=== PATIENT | female | born 1985 | race Hispanic/Latino ===

== ENCOUNTER 2023-06-23 14:07 | Emergency (ER) | payer OTHER, SELFPAY ==
[2023-06-23 14:18] VITALS: BP 138/89
[2023-06-23 14:32] LABS: % Basophils 0.3 % (0-2); % Immature Granulocytes 0.2 % (0-0.5); % Lymphocytes 28.4 % (20.5-51.1); % Monocytes 5.3 % (1.7-9.3); % Neutrophils 64.8 % (42.2-75.2); Absolute Eosinophils 0.1 10^3/uL (0-0.7); Absolute Lymphocytes 1.8 10^3/uL (1.2-3.4); Absolute Monocytes 0.3 10^3/uL (0.1-0.6); Absolute Neutrophils 4.1 10^3/uL (1.4-6.5); Hematocrit 37.2 % (37.0-47.0); Hemoglobin 12.5 g/dL (12.0-16.0); Mean Corp Hgb Conc. 33.6 g/dL (33.0-37.0); Mean Corpuscular Hgb 28.9 pg (27.0-31.0); Mean Corpuscular Volume 85.9 fL (81.0-99.0); Mean Platelet Volume 12.2 fL (7.4-10.4); Nucleated Red Blood Cells % 0 %; Platelet Count 213 10^3/uL (130-400); Red Blood Cell Count 4.33 10^6/uL (4.20-5.40); Red Cell Dist. Width 13.7 % (11.5-14.5); White Blood Cell Count 6.3 10^3/uL (4.8-10.8)
[2023-06-23 14:54] LABS: Troponin I < 0.012 ng/ml
[2023-06-23 15:11] LABS: ALT (SGPT) 17 U/L (0-35); AST (SGOT) 24 U/L (14-36); Albumin 4.7 g/dl (3.5-5.0); Alkaline Phosphatase 55 U/L (38-126); Blood Urea Nitrogen 14 mg/dl (7-17); Calcium 9.9 mg/dl (8.4-10.2); Carbon Dioxide 24 mmol/L (22-30); Chloride 104 mmol/L (98-107); Glucose 87 mg/dl (70-99); Potassium 4.3 mmol/L (3.5-5.1); Sodium 138 mmol/L (135-145); Total Bilirubin 0.7 mg/dl (0.2-1.3); Total Protein 7.6 g/dl (6.3-8.2); eGFR > 60.00
[2023-06-23 15:24] LABS: TSH Reflex To Free T4 1.86 uIU/ml (0.47-4.68)
--- NOTE | 2023-06-23 16:05 | ED.GENMED ---
History of Present Illness
General
Chief Complaint: Chest Pain
Source: patient and spouse
Exam Limitations: none
Time Seen by Provider: 06/23/23 16:03
Nursing documentation reviewed up to this point in time: agreed with
Travel History
Have you had any contact with someone who has COVID-19?: No
Do you have any symptoms of coronavirus? Fever > 100 degrees, chills, cough, shortness of breath, sore throat, loss of taste or smell, muscle aches, or headache?: No
History of Present Illness
History of Present Illness:
37-year-old female presents emergency department complaining of chest tightness yesterday, she also notes feeling foggy for the past several months. She recently adjusted her Synthroid from 50 mcg to 75, but then decreased it to 50 today after
feeling her heart racing. Her primary care adjusted it.
Past History
Past History
ED Past Medical History: Hypothyroidism
ED Past Surgical History: Orthopedic
Social History
Tobacco: Non-smoker
Alcohol: None
Drug: None
Review of Systems
Review of Systems
Allergies reviewed?: Yes
All Other Systems: Not applicable
Constitutional: Reports no symptoms
EENT: Reports no symptoms
Respiratory: Reports no symptoms
Cardiac: Reports chest pain and palpitations
ABD/GI: Reports no symptoms
: Reports no symptoms
Musculoskeletal: Reports no symptoms
Skin: Reports no symptoms
Neurological: Reports headache
Endocrine: Reports no symptoms
Hematologic/Lymphatic: Reports no symptoms
Psychiatric: Reports no symptoms
Phy Exam
Physical Exam
Physical Exam:
Physical Exam
General: no apparent distress, not acutely ill
Neck: supple. no meningeal signs. normal posterior pharynx
Heart: s1/s2 regular rate and rhythm, no murmur. equal radial
pulses.
HEENT: Pupils equal round reactive to light, EOMI
Lungs: no acute respiratory distress. clear bilaterally
Abdomen: normal bowel sounds. not tender. no CVAT
Neuro: alert and oriented. no focal neurological deficits cranial nerves II through XII intact
Skin: no rash
Psychiatric: well kept. interactive and cooperative
Extremities: no edema. no calf tenderness. negative homans. good distal pulses
Scores
Heart Score for Chest Pain Patients
STEMI patient?: No
History: Slightly or Non-Suspicious
ECG: Normal
Age: </= 45 years
Risk Factors: No Risk Factors
Troponin: </= Normal Limit
Heart Score for Chest Pain Patients: 0
Heart Score Risk: 2.5% MACE over next 6 weeks
Course
Orders/Labs/Results
Orders:
Orders
06/23/23 14:10
Electrocardiogram (*1) Urgent
Reason for Study: Chest Pain
EKG- Treatment ONCE
06/23/23 14:24
Complete Blood Count/With Diff Urgent
Comprehensive Metabolic Panel Urgent
HCG, Serum Qualitative Screen Urgent
Comment: ADD
TSH Reflex To Free T4 Urgent
Troponin I Urgent
06/23/23 16:24
CT Head W/o Iv Contrast Urgent
Comment:
Reason For Exam: headache, feels foggy
06/23/23 16:51
Add On- LAB Urgent
Tests Added?: Serum HCG qualitative
Abnormal Lab Results
06/23/23
14:24
MPV 12.2 H fL
(7.4-10.4)
06/23/23 14:24
06/23/23 14:24
Vital Signs
Initial and Last Documented VS:
Initial Vital Signs
Temp Pulse Resp BP Pulse Ox
98.3 F 70 16 138/89 100
06/23/23 14:18 06/23/23 14:18 06/23/23 14:18 06/23/23 14:18 06/23/23 14:18
Last Documented Vital Signs
Temp Pulse Resp BP Pulse Ox
98.3 F 76 18 128/80 100
06/23/23 14:18 06/23/23 18:20 06/23/23 18:20 06/23/23 18:20 06/23/23 18:20
MDM/Problems Addressed
Differential Diagnosis Includes:
Thyroiditis, dysrhythmia
MDM/Problems Addressed:
37-year-old female with palpitations, chest tightness, brain fog and dizziness. She has felt the brain fog and dizziness for the past several months, possibly related to thyroiditis, as her TSH was 6 last week. No signs of dysrhythmia. Stable for
discharge and follow-up with endocrinology and primary care.
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
*Radiology
Radiology exam reviewed: radiology read reviewed (CT head no acute findings)
*Pulse Oximetry
Patient hypoxic: no
*EKG
Interpreted by ED Provider?: Yes
EKG Intrepretation Date: 06/23/23
EKG Intrepretation Time: 14:13
Interpretation: abnormal
Comparison EKG: no comparison EKG present
Heart Rate: 72
Rate: normal
Rhythm: sinus and sinus arrhythmia
Sharon: normal axis
Interval: normal interval
QRS Pattern: normal QRS
Ischemia: non-specific ST changes
*Erp Business Analyst Interpretation
Rate: Erp Business Analyst- N/A
*Critical Care Note
Total Time (30-74mins, 75-104mins- exclusive of procedures): Not Applicable
Data Reviewed
Review of Other/Old Records Reveals: Labs (pt lab from 06/19/23, tsh 6)
Source: patient
Patient Management
Social determinants of health affecting care: Living situation and Strong social support
Escalation/DeEscalation of care consider admission/obs:
admit not indicated
ED Attending Note
-
Portions of this chart may have been created with voice recognition software.� Occasional wrong word or��sound alike� substitutions may have occurred due to the inherent limitations of voice recognition software.
Discharge Plan
Departure
Patient Disposition: Home (Routine Discharge)
Date of Disposition: 06/23/23
Time of Disposition: 18:23
Patient with high blood pressure during this ER visit?: Yes
Condition: Good
Discharge Problem:
Palpitations
Instructions: Palpitations, BLOOD PRESSURE
Prescriptions:
No Action
Synthroid
50 mg PO DAILY
multivitamin Tablet
1 tab PO DAILY
cetirizine [Zyrtec] 10 mg Tablet
10 mg PO DAILY
ondansetron 4 mg tablet,disintegrating
4 mg PO Q8H PRN (Reason: nausea and vomiting) 5 Days Qty: 14 0RF
Referrals:
Song Moran PA [Family Provider] - Call in 1-3 days for appt
Activity Restrictions/Additional Instructions:
Return for any concerns. Follow up with your manager shipping in 1-2 weeks
Interventions
Interventions:
*Risk Screen - Suicide Last Done: 06/23/23 14:18
*General Assessment Last Done: 06/23/23 14:18
*Neglect/Abuse Screening Last Done: 06/23/23 14:18
ED- Cardiac Assessment Last Done: 06/23/23 16:03
Discharge Date and Time
Print Language: YI
[2023-06-23 17:46] LABS: HCG, Serum Qualitative Screen Negative
[2023-06-23 18:20] VITALS: BP 128/80
== END 2023-06-23 19:29 | disposition home or self-care (01) ==
LOC: EMR 14:07
PROVIDERS: Emergency Medicine; EMERGENCY PHYSICIAN Emergency Medicine; FAMILY PHYSICIAN Nurse Practitioner Family
DX: R07.89 Other chest pain (principal); E06.3 Autoimmune thyroiditis
CPT/HCPCS: 99284; 70450; 80053; 84443; 84484; 84703; 85025; 93005

== ENCOUNTER 2023-08-02 20:37 | Inpatient (IN) | payer OTHER, SELFPAY ==
[2023-08-02] VITALS (12 sets, daily range): BP systolic 108–136; BP diastolic 80–97; PULSE 68–86; BMI 21.0; BMI 20.5
--- NOTE | 2023-08-02 16:03 | ED.GENMED ---
History of Present Illness
General
Chief Complaint: Vascular Symptoms
Source: patient and spouse
Exam Limitations: none
Time Seen by Provider: 08/02/23 15:04
Nursing documentation reviewed up to this point in time: agreed with
Travel History
Have you had any contact with someone who has COVID-19?: No
Do you have any symptoms of coronavirus? Fever > 100 degrees, chills, cough, shortness of breath, sore throat, loss of taste or smell, muscle aches, or headache?: No
History of Present Illness
History of Present Illness:
37-year-old female with Deejay history of migraines Armani's thyroiditis presenting to the emergency department today with concerns of a positional discomfort to the right arm as well as numbness weakness to the right arm as well as intermittent
headache and dizziness that seems to be positional. She claims that she went to an urgent care earlier today and they were concerned that they heard potentially a bruit to the right side of the neck as well. She was sent in for imaging today.
Denies ongoing symptoms when sitting upright.
Past History
Past History
ED Past Medical History: Hypothyroidism
ED Past Surgical History: Orthopedic
Social History
Tobacco: Non-smoker
Alcohol: None
Drug: None
Review of Systems
Review of Systems
Allergies reviewed?: Yes
All Other Systems: ROS reviewed and negative except as documented in HPI and ROS
Phy Exam
Physical Exam
Physical Exam:
GENERAL: Alert , in no apparent distress
EYE: pupils equal and reactive
NECK: Supple, no significant adenopathy.
ENT: o/p clr, mmm.
CARDIAC: Regular rate and rhythm .
LUNGS: Clear breath sounds bilaterally, no acute respiratory distress, no wheezes/rales/rhonchi
ABDOMEN: Soft, without focal tenderness, no r/g, no cvat
NEUROLOGICAL: Alert and oriented, no focal neuro deficits
SKIN: Warm and dry, skin intact.
MUSCULOSKELETAL: No edema, well perfused.
PSYCH: Normal and appropriate interaction.
Course
Orders/Labs/Results
Orders:
Orders
08/02/23 15:38
CT Head & Neck Angio W/wo IV Urgent
Comment:
Reason For Exam: right arm weakness, dizzy, right neck pain bruit h
08/02/23 15:39
EKG [Electrocardiogram (*1)] Urgent
Reason for Study: Fatigue / Weakness
EKG- Treatment ONCE
Test Result ONCE
08/02/23 15:53
Beta Hcg Serum Qualitative Screen [HCG, Serum Qualitative Screen] Urgent
CBC/With Diff [Complete Blood Count/With Diff] Urgent
CMP [Comprehensive Metabolic Panel] Urgent
TSH Reflex To Free T4 Urgent
Comment: ADD-ON
08/02/23 16:05
Add On- LAB Urgent
Tests Added?: TSH free T4
08/02/23 16:35
Urinalysis Reflex To Culture Urgent
Date Specimen was Collected: 08/02/23
Time Specimen was Collected: 16:34
08/02/23 18:57
Clopidogrel Bisulfate [Plavix] 300 mg PO NOW STA
Abnormal Lab Results
08/02/23
15:53
MPV 13.0 H fL
(7.4-10.4)
08/02/23 15:53
08/02/23 15:53
Vital Signs
Initial and Last Documented VS:
Initial Vital Signs
Temp Pulse Resp BP Pulse Ox
98.5 F 80 16 135/86 97
08/02/23 14:08 08/02/23 14:08 08/02/23 14:08 08/02/23 14:08 08/02/23 14:08
Last Documented Vital Signs
Temp Pulse Resp BP Pulse Ox
98.5 F 83 17 136/97 99
08/02/23 14:08 08/02/23 19:00 08/02/23 19:00 08/02/23 19:00 08/02/23 19:00
MDM/Problems Addressed
MDM/Problems Addressed:
37-year-old female presenting to the emergency department today with concerns of discomfort in the right arm over the past few months but worsening dizziness and lightheadedness with certain positioning seems to be coming from the right side. Was
seen at urgent care was sent in for imaging. CT angiogram showing a right-sided internal carotid dissection. Case was immediately discussed with vascular surgery recommending Plavix and admission. Case discussed with hospitalist admitted on
Plavix. No ongoing symptoms here.
*Critical Care Note
Total Time (30-74mins, 75-104mins- exclusive of procedures): Not Applicable
ED Attending Note
-
Portions of this chart may have been created with voice recognition software.� Occasional wrong word or��sound alike� substitutions may have occurred due to the inherent limitations of voice recognition software.
Discharge Plan
Departure
Patient Disposition: Admit
Date of Disposition: 08/02/23
Time of Disposition: 19:10
Admit to: Telemetry
Admit to doctor: Jon
Presentation/result/management discussed w/ accepting MD/DO: Hospitalist
Patient with high blood pressure during this ER visit?: No
Condition: Good
Covid-19: Not Applicable
Discharge Problem:
Internal carotid artery dissection
Prescriptions:
No Action
levothyroxine [Synthroid] 50 mcg Tablet
50 mcg PO SUMOWETH Qty: 0
multivitamin Tablet
1 tab PO DAILY
cetirizine [Zyrtec] 10 mg Tablet
10 mg PO DAILY
sumatriptan succinate [Imitrex] 25 mg Tablet
0 mg PO .COMPLEX
Rx Instructions:
take 1 tab at onset of headache; if no relief may repeat 1 tab after at least 2 hrs; max = 4 tabs/24 hr
levothyroxine [Synthroid] 75 mcg Tablet
75 mcg PO TUFR
Patient Comments:
new dose, slowly increased to 75mcg daily. and stop 50mcg when dizzness stops
cholecalciferol (vitamin D3) [Vitamin D3] 25 mcg (1,000 unit) Tablet
25 mcg PO DAILY
Referrals:
Delphine Harry CRNP [Family Provider] -
Interventions
Interventions:
*Risk Screen - Suicide Last Done: 08/02/23 15:19
*General Assessment Last Done: 08/02/23 19:03
*Neglect/Abuse Screening Last Done: 08/02/23 15:19
ED- Fall Risk Assessment Last Done: 08/02/23 15:20
*ED COVID-19 Vaccine History Last Done: 08/02/23 19:03
ED- Cardiac Assessment Last Done: 08/02/23 15:20
ED-Musculoskeletal Assessment Last Done: 08/02/23 15:19
ED- Pulmonary Assessment Last Done: 08/02/23 15:19
ED-Peripheral Vascular Assessment Last Done: 08/02/23 15:19
ED-Skin Assessment Last Done: 08/02/23 15:19
Discharge Date and Time
Print Language: ICELANDIC
[2023-08-02 16:29] LABS: HCG, Serum Qualitative Screen Negative
[2023-08-02 16:31] LABS: % Basophils 0.5 % (0-2); % Eosinophils 0.8 % (0-6); % Immature Granulocytes 0.2 % (0-0.5); % Lymphocytes 31.7 % (20.5-51.1); % Monocytes 6.8 % (1.7-9.3); Absolute Eosinophils 0.1 10^3/uL (0-0.7); Absolute Lymphocytes 1.9 10^3/uL (1.2-3.4); Absolute Monocytes 0.4 10^3/uL (0.1-0.6); Absolute Neutrophils 3.6 10^3/uL (1.4-6.5); Hematocrit 37.5 % (37.0-47.0); Hemoglobin 12.8 g/dL (12.0-16.0); Mean Corp Hgb Conc. 34.1 g/dL (33.0-37.0); Mean Corpuscular Hgb 28.9 pg (27.0-31.0); Mean Corpuscular Volume 84.7 fL (81.0-99.0); Nucleated Red Blood Cells % 0 %; Platelet Count 208 10^3/uL (130-400); Red Blood Cell Count 4.43 10^6/uL (4.20-5.40); Red Cell Dist. Width 13.2 % (11.5-14.5); White Blood Cell Count 6.1 10^3/uL (4.8-10.8)
[2023-08-02 16:32] LABS: ALT (SGPT) 19 U/L (0-35); AST (SGOT) 23 U/L (14-36); Albumin 4.4 g/dl (3.5-5.0); Alkaline Phosphatase 61 U/L (38-126); Blood Urea Nitrogen 14 mg/dl (7-17); Calcium 9.7 mg/dl (8.4-10.2); Carbon Dioxide 28 mmol/L (22-30); Chloride 106 mmol/L (98-107); Estimated Creatinine Clearance 116 ml/min; Glucose 89 mg/dl (70-99); Potassium 4.4 mmol/L (3.5-5.1); Sodium 142 mmol/L (135-145); Total Bilirubin 0.5 mg/dl (0.2-1.3); Total Protein 7.4 g/dl (6.3-8.2); eGFR > 60.00
[2023-08-02 17:17] LABS: Urine Albumin Negative (Neg - Trace); Urine Bilirubin Negative (Negative); Urine Character Clear (Clear); Urine Color Yellow; Urine Glucose Negative (Negative); Urine Ketone Negative (Negative); Urine Leukocyte Negative (Negative); Urine Nitrite Negative (Negative); Urine Occult Blood Negative (Negative); Urine Urobilinogen Negative (Neg - 1+)
[2023-08-02 17:36] LABS: TSH Reflex To Free T4 1.72 uIU/ml (0.47-4.68)
[2023-08-02] MEDS: PLAVIX 300 MG PO (19:06)
--- NOTE | 2023-08-02 20:20 | HPS.HSE ---
Family Physician
-
Family Physician: JHOAN Wilkinson
Chief Complaint
-
Dizziness
History of Present Illness
Patient is a 37y F with PMH significant for Armani's thyroiditis / hypothyroidism who presents to ED complaining of dizziness. Patient states that she has had positional dizziness x about 1 month or so. Her symptoms seem to occur more often
when sitting upright or standing. Symptoms are exacerbated if she tries to 'sit up straight' and seem improved with hunching or slouching. Patient has tried to increase her fluid intake but has noted no significant change in her symptoms. She has
not had an episodes of syncope or LOC. She noted today that she elicited dizzy sensations simply by moving her arms (either one). This was new and patient presented to an Urgent Care for evaluation. Bruit was appreciated on the R and patient was
sent to the ED for further evaluation.
Patient states that she will develop numbness and tingling along her R side - including the arm and leg - if she remains upright after the dizziness has started. These symptoms too can be alleviated by changes in position.
She denies any focal weakness. No vision changes, headache or speech deficits. Patient denies any neck pain.
At the time of my examination, patient is lying supine in the ED and has no symptoms.
Medical History
Past Medical History
Past Medical History: Reports Other
Additional Past Medical History:
Armani's Disease
Hypothyroidism
Past Surgical History: Reports Other
Additional Past Surgical History:
Bilateral Knee Arthroscopies
Diastasis Recti and Hernia Repairs
Bilateral Hip Labrum Repairs
Social History
Tobacco: Non-smoker
Alcohol: Occasional
Drug: None
Family History
Family History: Other (Sister: Thoracic Outlet Syndrome Father: HTN Brother: HTN)
Allergies / Home Medications
Allergies reflects when Allergies were last updated in [facility].
Home Medications with original date entered in [facility]
Allergy/Medication List:
Allergies
Allergy/AdvReac Type Severity Reaction Status Date / Time
No Known Allergies Allergy Verified 04/29/21 05:58
Home Medications
levothyroxine 50 mcg tablet (Synthroid) 50 mcg PO SUMOWETH Thyroid ##0 04/29/21
cetirizine 10 mg tablet (Zyrtec) 10 mg PO DAILY 09/16/22
multivitamin 1 tab PO DAILY 09/16/22
cholecalciferol (vitamin D3) 25 mcg (1,000 unit) tablet (Vitamin D3) 25 mcg PO DAILY 08/02/23
levothyroxine 75 mcg tablet (Synthroid) 75 mcg PO TUFR 08/02/23
sumatriptan succinate 25 mg tablet (Imitrex) 0 mg PO .COMPLEX 08/02/23
Review of Systems
-
History Source: Patient
A 12 point ROS was completed and negative except as noted: Yes
Constitutional: Denies Fever or Chills
Respiratory: Denies Cough or Trouble Breathing
Cardiac: Denies Chest Pain or Palpitations
Abdomen/GI: Denies Abdominal Pain, Nausea, Vomiting or Diarrhea
: Denies Dysuria or Frequency
Musculoskeletal: Denies Joint Pain or Edema
Neurological: Reports Dizzy and Numbness; Denies Headache or Weakness
Psych: Denies Depression or Anxiety
Physical Exam
Vital Signs
Vital Signs
Temp Pulse Resp BP Pulse Ox
98.5 F 83 17 136/97 99
08/02/23 14:08 08/02/23 19:00 08/02/23 19:00 08/02/23 19:00 08/02/23 19:00
Physical Exam
General: Other (37y F in no acute distress.)
HEENT: Moist mucous membranes and PERRLA
Respiratory: Clear; No Wheezes, Rales or Rhonchi
Cardiac: S1/S2 and Regular Rhythm; No Murmur
GI: Soft, Non Tender, Non Distended and Normal Bowel Sounds
Musculoskeletal: No Clubbing, No Cyanosis and No Edema
Neuro: AO x 3 and Nonfocal/grossly intact
Laboratory Results
-
08/02/23 15:53
08/02/23 15:53
Laboratory Results
Total Bilirubin 0.5 mg/dl (0.2-1.3) 08/02/23 15:53
AST 23 U/L (14-36) 08/02/23 15:53
ALT 19 U/L (0-35) 08/02/23 15:53
Alkaline Phosphatase 61 U/L (38-126) 08/02/23 15:53
Impression/Plan
-
A/P: Patient is a 37y F with PMH significant for thyroid disease who presents to ED complaining of dizziness.
Right Internal Carotid Artery Dissection
Dizziness likely secondary to the above
- Admit for further evaluation and treatment.
- Plavix started in the ED and will continue daily.
- Vascular Surgery evaluation for additional recommendations.
- Follow for any neurologic changes.
- Maintain BP control.
Hypothyroidism
- Stable. TFTs normal.
- Continue current T4 replacement.
DVT Prophylaxis: SCDs
Code Status: Full
--- NOTE | 2023-08-03 03:21 | PTCARENOTE ---
Patient is a 37y F with PMH significant for Armani's thyroiditis / hypothyroidism who presents to ED complaining of dizziness, positional dizziness x about 1 month or so, symptoms seem to occur more often when sitting upright or standing,
symptoms too can be alleviated by changes in position.
Admitted from ED with DX of Carotid Dissection. Orthostatic V/S were negative. Pt resting quietly, bed in low position, call light & phone in reach of pt. Pt instructed to call when she gets up, standby assist due to dizziness.
[2023-08-03 03:30] VITALS: BP 138/79
[2023-08-03] MEDS: SYNTHROID 50 MCG PO (05:12)
[2023-08-03 05:19] LABS: Hematocrit 33.7 % (37.0-47.0); Hemoglobin 11.7 g/dL (12.0-16.0); Mean Corp Hgb Conc. 34.7 g/dL (33.0-37.0); Mean Corpuscular Hgb 28.5 pg (27.0-31.0); Mean Platelet Volume 12.4 fL (7.4-10.4); Platelet Count 196 10^3/uL (130-400); Red Blood Cell Count 4.11 10^6/uL (4.20-5.40); Red Cell Dist. Width 13.3 % (11.5-14.5)
[2023-08-03 05:22] VITALS: BMI 20.5
[2023-08-03 05:44] LABS: Blood Urea Nitrogen 17 mg/dl (7-17); Carbon Dioxide 24 mmol/L (22-30); Chloride 105 mmol/L (98-107); Estimated Creatinine Clearance 113 ml/min; Glucose 81 mg/dl (70-99); HDL Cholesterol 60 mg/dl; LDL Cholesterol, Calculated 59 mg/dl; Potassium 3.8 mmol/L (3.5-5.1); Sodium 140 mmol/L (135-145); Total Cholesterol 128 mg/dl (50-199); Triglyceride 47 mg/dl (10-149); Very Low Density Lipoprotein 9 mg/dl (0-30); eGFR > 60.00
[2023-08-03 07:35] VITALS: BP 101/74; BP 123/78; BP 136/88; PULSE 104; PULSE 83; PULSE 93
[2023-08-03] MEDS: ZYRTEC 10 MG PO (08:00)
[2023-08-03] MEDS: PLAVIX 75 MG PO (08:00)
--- NOTE | 2023-08-03 09:19 | CON.VAS ---
Addendum entered and electronically signed by Braeden Honeycutt III, MD 08/03/23 14:58:
This patient was seen and examined with Carley Solomon PA-C. I agree with the history and physical exam as well as the assessment and plan. I have the following additions:
37-year-old healthy female
No significant past medical history other than hypothyroid
Progressive dizziness over the past several months
Cross-sectional imaging obtained yesterday shows focal right internal carotid artery dissection with distal flow present
Specifically denies slurred speech, facial droop, monocular vision loss, asymmetric upper/lower extremity weakness or numbness. Denies recent stroke or TIA.
She reports that with movement of her RIGHT arm this makes her dizziness worse. Denies any left peripheral symptoms.
Non-smoker
No recent trauma or falls
No recent whiplash injury
No car accidents
No chiropractic manipulation
No personal or family history of fibromuscular dysplasia
No personal history of hypertension
No personal or family history of connective tissue disorders
I do not suspect that her chronic progressive dizziness is related to the focal carotid dissection on the right. I do not see other characteristic radiographic evidence for fibromuscular dysplasia in the carotid arteries bilaterally.
Continue antiplatelet therapy
Neurology involvement
No surgical intervention planned
Obtain MRI of the brain
Obtain baseline carotid duplex while inpatient
I will see her as an outpatient and follow-up for carotid dissection imaging surveillance.
Call with questions or concerns
Signed:
Braeden Honeycutt III, MD
[facility]
[phone] (cell)
Original Note:
Consultation
Consultation Request
Date/Time Consultation Requested: 08/02/23 21:20
Date/Time Consultation Performed: 08/03/23 8:00
Requesting Provider: Anderson Gutierrez DO
Performing Provider: Carley Solomon PA-C; Braeden Honeycutt III, MD
Reason for Consultation: Right carotid dissection
Medical History
-
Chief Complaint: Dizziness
History of Present Illness:
37 year old female hx hypothyroidism presented to the ED with dizziness. She began developing dizziness about a few months ago. Yesterday she noticed worsening dizziness which was exacerbated with movement of her upper extremities, prompting her to
present to urgent care from where she was then referred to the ED. She notes associated right upper and lower extremity paresthesias and numbness which happens concurrently with the episodes of dizziness. No left sided paresthesias, weakness or
numbness. No amaurosis or speech changes. She notes almost complete resolution of symptoms at this time. She has never experienced these symptoms prior to one month ago. She denies headaches, neck pain, or visual changes. No recent neck trauma or
whiplash. She is a nonsmoker. CTA was performed which revealed acute non-occlusive dissection in the proximal-mid R ICA. She has been started on plavix this admission.
Past Medical History
Past Medical History: Hypothyroidism (Armani's disease)
Past Surgical History: Orthopedic (bilateral knee arthroscopy, bilateral hip labrum repair ) and Other (hernia repair )
Social History
Tobacco: Non-Smoker
Alcohol: Occasional
Drug: None
Family History
Family History: Hypertension (brother, father) and Other (sister- venous thoracic outlet syndrome )
Allergies / Home Medications
Allergy/AdvReac Type Severity Reaction Status Date / Time
No Known Allergies Allergy Verified 04/29/21 05:58
�Medication �Instructions �Recorded �Confirmed �Type
levothyroxine 50 mcg tablet 50 mcg PO SUMOWETH Thyroid ##0 04/29/21 08/02/23 History
(Synthroid)
cetirizine 10 mg tablet (Zyrtec) 10 mg PO DAILY Allergies 09/16/22 08/02/23 History
multivitamin 1 tab PO DAILY Supplement 09/16/22 08/02/23 History
cholecalciferol (vitamin D3) 25 25 mcg PO DAILY Supplement 08/02/23 08/02/23 History
mcg (1,000 unit) tablet (Vitamin
D3)
levothyroxine 75 mcg tablet 75 mcg PO TUFR Thyroid 08/02/23 08/02/23 History
(Synthroid)
sumatriptan succinate 25 mg tablet 0 mg PO .COMPLEX Migraine headache 08/02/23 08/02/23 History
(Imitrex)
Review of Systems
-
History Source: Patient
All other systems: Negative unless noted
Abdomen/GI: Reports Nausea
Neurological: Reports Dizzy
Physical Exam
Vital Signs
Temp Pulse Resp BP Pulse Ox
98.1 F 75 16 101/74 98
08/03/23 07:35 08/03/23 07:35 08/03/23 07:35 08/03/23 07:35 08/03/23 07:35
Lab Results
08/03/23 04:37
08/03/23 04:37
Physical Exam
General: Well Developed, Well Nourished and No Apparent Distress
HEENT: Normocephalic and Atraumatic
Respiratory: Non Labored Respirations
Cardiac: Regular Rhythm
Skin: Warm and Dry
Neuro: Awake, Alert, Oriented, Nonfocal/Grossly Intact and Other (upper and lower extremity strength equal bilaterally)
Psych: Calm
Assessment / Plan
-
37 year old female hx hypothyroidism who presented with dizziness, found to have acute R ICA dissection
- Presenting symptoms unlikely due to carotid dissection, continue to monitor symptoms
- Recommend neurology eval
- Continue plavix daily
- Will check carotid duplex
- No acute vascular surgical intervention needed at this time
Data Reviewed
-
CT Scan: Image Personally Visualized and interpreted, Report Reviewed by me, Discussed with Physician and Discussed with Patient
Labs: Labs Reviewed by me and Discussed with Physician
--- NOTE | 2023-08-03 09:58 | W.PN.HOSP.TC ---
Today's Communication/Plan
-
see A/P
Assessment / Plan
Assessment / Plan
37y F with PMH significant for Armani's thyroiditis / hypothyroidism who presented to ED complaining of dizziness. Patient states that she has had positional dizziness x about 1 month or so. Her symptoms seem to occur more often when sitting
upright or standing. Symptoms are exacerbated if she tries to 'sit up straight' and seem improved with hunching or slouching. Patient has tried to increase her fluid intake but has noted no significant change in her symptoms. She has not had an
episodes of syncope or LOC. She noted on DOA that she elicited dizzy sensations simply by moving her arms (either one). This was new and patient presented to an Urgent Care for evaluation. Bruit was appreciated on the R and patient was sent to the
ED for further evaluation.
Patient stated that she developed numbness and tingling along her R side - including the arm and leg - if she remains upright after the dizziness has started. These symptoms too can be alleviated by changes in position.
She denies any focal weakness. No vision changes, headache or speech deficits. Patient denies any neck pain.
A/P:
# Dizziness likely secondary to Right Internal Carotid Artery Dissection
Plavix started in the ED and will continue daily.
Vascular Surgery evaluation for additional recommendations.
Noted carotid US ordered by vascular team
Follow for any neurologic changes. Pt complains of intermittent R arm numbness and remains dizzy with change in head position.
Cont BP control with hydralazine PRN
# Hypothyroidism - Stable.
TFTs normal.
Continue current T4 replacement.
DVT Prophylaxis: SCDs
Code Status: Full
DW RN
DW at bedside
carotid dissection is a life threatening condition
Anticipated Discharge: > 48 hours
Subjective/Interval History
-
Date of Service: August 03, 2023
Objective Data
-
Labs:
Laboratory Results
08/03/23
04:37
WBC 7.0
Hgb 11.7 L
Hct 33.7 L
Plt Count 196
Sodium 140
Potassium 3.8
Chloride 105
Carbon Dioxide 24
BUN 17
Creatinine 0.6
Glucose 81
Calcium 9.0
Vital Signs:
Vital Signs
Temp Pulse Resp BP Pulse Ox
36.7 C 75 16 101/74 98
08/03/23 07:35 08/03/23 07:35 08/03/23 07:35 08/03/23 07:35 08/03/23 07:35
I&O
08/02/23 08/03/23 08/04/23
06:59 06:59 06:59
Intake Total 480 / 480
Output Total 400 / 400
Balance 80 / 80
Review of Systems
-
All other systems: Reviewed and negative
Physical Exam
-
General: Well Developed, Well Nourished, No Apparent Distress, Comfortable and Conversant; Negative Respiratory Distress
HEENT: Normocephalic, Atraumatic, Nose Appears Normal and Ears Appear Normal; Negative Oxygen
Respiratory: Clear to Auscultation and Non Labored Respirations; Negative Accessory Resp Muscle Use
Cardiac: Regular Rhythm and S1/S2
GI: Soft, Nontender, Nondistended and Normal Bowel Sounds
Skin: Warm and Dry
Neuro: Awake, Alert, Oriented, AO x 3 and Nonfocal/Grossly Intact
Psych: Calm and Intact Judgement/Insight
Data Reviewed
-
CT Scan: Report Reviewed by me
Labs: Labs Reviewed by me
[2023-08-03 11:33] VITALS: BP 113/75
--- NOTE | 2023-08-03 12:57 | CON.NEURO4 ---
Addendum entered and electronically signed by Connor Reddy MD 08/03/23 15:02:
Studies reviewed.
I have personally examined the patient. I reviewed and agree with the WOUND TREATMENT RN's Note.
My addenda:
Awake, alert, interactive. No acute distress.
Speech intact.
Follows 2-step requests w/o difficulty. No tremor.
Extra-ocular movements grossly intact.
Facial movements full and symmetric. Hearing intact to normal conversational volume.
Normal UE movements bilaterally.
Neck: full ROM.
Chest: no dyspnea
Heart: no JVD
Ext: (-) Clubbing, (-) Cyanosis, (-) Edema
IMPRESSIONS/RECOMMENDATIONS:
Abrupt onset of dizziness with discovery of right internal carotid artery dissection
With additional symptomatology of brain fog, episodic headache
Check MRI of brain to ensure no intracranial structural abnormality producing symptomatology although not likely despite the patient's carotid artery dissection
Continue clopidogrel
Reevaluate the patient's carotid dissection at 6 months to determine if the patient will require continued antiplatelet therapy (January 2024)
Check blood work for potential metabolic etiology
Rehabilitation evaluations
D/W patient / family
All questions answered.
Will continue to follow pending result.
Original Note:
Documented by User: Neda Medina NP 08/03/23 14:54
Consultation - Neurology 4
-
CONSULTING PHYSICIAN: Connor Reddy MD
REFERRING PHYSICIAN: Hospitalists/Dr. Deluca
DICTATED BY: JHOAN Madison
DATE/TIME OF REQUEST: 08/03/23
DATE/TIME OF CONSULTATION: 08/03/23
Reason for Consultation: Dizziness
History of Present Illness:
This is a 37-year-old left-handed female who has presented to the hospital on 08/02/23 with report of dizziness. Patient reports a history of progressive dizziness starting around March 2023. She reports noticing a sudden onset of dizziness while
driving with her right arm resting on the center console, lowering her arm resolved the dizziness. This kept happening intermittently when she raised her right arm up only. She also notes brain fog/forgetfulness starting around the same time. She
was experiencing heart palpitations with the dizziness initially and attributed it to her thyroid. Her administrative tech had her titrate her Synthroid dose more slowly, and the palpitations resolved and her brain fog improved slightly, but the
dizziness kept occurring. Over the past month, her dizziness has worsened/become more frequent, and turning her head too fast also started exacerbating her dizziness. In the past week she noticed that her right hand fingertips and right foot were
intermittently tingling during the dizzy episodes. She also reports having tunnel vision once in the past week and a posterior right neck straining sensation during the dizzy episodes. She has a pressure sensation under her right shoulder blade and
feels that if she hunches over/has poor posture, her symptoms improve. She reports having a history of severe migraines not associated with aura requiring her to lay down in a dark room. She hasn't had a migraine in a few months but she does endorse
having a right-sided headache about 3 days per week. She typically takes Advil for her headaches with relief. She also takes Imitrex PRN migraine but reports using this only a few times per year. She has never been on any other migraine medications.
Currently she rates her headache a 2/10. She denies any nausea or vomiting but reports mild photo/phonophobia with her headache. She denies any vision changes, speech/swallow difficulty, weakness, chest pain, palpitations, and shortness of breath.
CTA head/neck was obtained on arrival in the ER and demonstrates an acute nonocclusive dissection in the proximal-mid right internal carotid artery. She was loaded with Plavix in the ER. She denies any history of head/neck trauma and she does not go
to a chiropractor. She does have a significant family history of Sandi Danlos syndrome in three first-cousins.
Past Medical History: Hypothyroidism, Armani's thyroiditis, migraines, preeclampsia
Surgical History: b/l hip labrum repair, b/l knee arthroscopy, diastasis recti and hernia repair
Family History: Three first cousins with Sandi Danlos syndrome. Mother- migraines. Sister- thoracic outlet syndrome.
Social History: Denies tobacco and illicit drug use. Occasional alcohol.
Allergies: No known allergies.
Home Medications: See below.
Review of Symptoms:
Patient denies any fever, headache, chest pain, shortness of breath, GI or symptoms.
�Per the HPI.�All systems are reviewed negative except above.
Physical Exam:
The patient is afebrile, abdomen is nondistended, breathing is unlabored, skin is warm and dry, no edema.
NIH Stroke Scale:
I performed the NIH stroke scale on the patient on 08/03/23 at 1315. The patient scored 0 points on the NIH stroke scale assessment, which were assigned as follows: See below.
Neurologic Examination:
The patient is awake, alert and oriented x 3. She is able to follow commands and answer questions appropriately. There is no aphasia or dysarthria. On cranial nerve assessment, pupils are 3 mm bilateral, round and reactive to light and
accommodation. Visual [place] are full. Extraocular movements are intact. Facial sensations are intact and bilaterally symmetrical, there is no facial asymmetry. Hearing is intact bilaterally to normal conversation volume. Tongue palate and uvula are
midline. Sternocleidomastoid strengths are full bilaterally. Motor strengths are 5/5 bilateral upper and lower extremities on medical research [place] scale. There is no drift or involuntary movement noted. Deep tendon reflexes are 2+ bilateral
upper and lower extremities and Babinski is absent bilaterally. There was no extinction noted on double simultaneous stimulation. Coordination is intact by finger to nose bilaterally.
Lab Results: See below.
Neuro Imaging:
1. 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
Differentials for the patient's presentation include:
1. Acute nonocclusive proximal-mid R ICA dissection likely contributing to some symptoms.
2. Migraine with aura possibly contributing to some symptoms
3. Some concern for structural brain abnormality or demyelinating disease contributing to symptoms.
4. POTS is possible but less likely.
Patient has the following risk factors for their symptoms: R ICA dissection
Recommendations:
-Continue Plavix per vascular surgery.
-Goal normotension.
-MRI brain with and w/o contrast ordered/pending.
-Provide dimenhydrinate 50mg IV x1 now for dizziness and prochlorperazine 10mg IV x1 now for headache.
-Neurological checks per unit guidelines.
-PT evaluations.
-DVT prophylaxis.
-Consider genetic testing for Sandi Danlos syndrome as an outpatient.
-Will follow pending results.
Discussed patient care with: Dr. Reddy, the patient
Vital Signs and Labs
-
Vital Signs and Labs:
Vital Signs
Temp Pulse Resp BP Pulse Ox
98.9 F 86 18 113/77 96
08/03/23 14:30 08/03/23 14:30 08/03/23 14:30 08/03/23 14:30 08/03/23 14:30
Lab Results
08/03/23 04:37
08/03/23 04:37
Sodium 140 mmol/L (135-145) 08/03/23 04:37
Potassium 3.8 mmol/L (3.5-5.1) 08/03/23 04:37
BUN 17 mg/dl (7-17) 08/03/23 04:37
Glucose 81 mg/dl (70-99) 08/03/23 04:37
Calcium 9.0 mg/dl (8.4-10.2) 08/03/23 04:37
LDL Cholesterol, Calc 59 mg/dl 08/03/23 04:37
Medications
-
Active Medications
Generic Name Dose Route Start Last Admin
Trade Name Freq PRN Reason Stop Dose Admin
Acetaminophen 650 mg 08/02/23 21:20
Acetaminophen 325 Mg Tablet PO 08/30/23 21:19
Q4HPRN PRN
Mild Pain / Temp > 101
Cetirizine HCl 10 mg 08/03/23 08:00 08/03/23 08:00
Cetirizine Hcl 10 Mg Tablet PO 08/31/23 07:59 10 mg
DAILY GUSTAVO Administration
Clopidogrel Bisulfate 75 mg 08/03/23 08:00 08/03/23 08:00
Clopidogrel 75 Mg Tablet PO 08/31/23 07:59 75 mg
DAILY GUSTAVO Administration
Hydralazine HCl 5 mg 08/02/23 21:20
Hydralazine 20 Mg/Ml Vial IV 08/30/23 21:19
Q6HPRN PRN
SBP > 180 or DBP > 110
Levothyroxine Sodium 75 mcg 08/04/23 06:00
Levothyroxine 75 Mcg Tablet PO 09/01/23 05:59
TuFr@0600 GUSTAVO
Levothyroxine Sodium 50 mcg 08/03/23 06:00 08/03/23 05:12
Levothyroxine 50 Mcg Tablet PO 08/31/23 05:59 50 mcg
SuMoWeTh@0600 GUSTAVO Administration
Sodium Chloride 0 flush 08/02/23 22:00
Sodium Chloride 0.9% (Flush) Syringe IV 08/30/23 21:59
PER PROTOCOL GUSTAVO
Home Medications
�Medication �Instructions �Recorded
levothyroxine 50 mcg tablet 50 mcg PO [facility] Thyroid ##0 04/29/21
(Synthroid)
cetirizine 10 mg tablet (Zyrtec) 10 mg PO DAILY Allergies 09/16/22
multivitamin 1 tab PO DAILY Supplement 09/16/22
cholecalciferol (vitamin D3) 25 25 mcg PO DAILY Supplement 08/02/23
mcg (1,000 unit) tablet (Vitamin
D3)
levothyroxine 75 mcg tablet 75 mcg PO TUFR Thyroid 08/02/23
(Synthroid)
sumatriptan succinate 25 mg tablet 0 mg PO .COMPLEX Migraine headache 08/02/23
(Imitrex)
NIH Stroke Score
Subsequent NIH Scale
Date of Subsequent NIH Scale: 08/03/23
Time of Subsequent NIH Scale: 13:15
NIH Stroke Score
Level of Consciousness: 0 - Alert
LOC Questions: 0-Answers both correctly
LOC Commands: 0-Performs both correctly
Best Horizontal Gaze: 0-Normal
Visual [place]: 0=Normal, no visual loss
Facial Palsy: 0=Normal, symmetrical
Motor - Right Arm: 0=No drift 10 seconds
Motor - Left Arm: 0=No drift 10 seconds
Motor - Right Le-No drift 5 seconds
Motor - Left Le-No drift 5 seconds
Limb Ataxia: 0-Absent
Sensation: 0-Normal
Best Language: 0-No aphasia
Dysarthria: 0-Normal
Extinction and Inattention: 0-No abnormality
Total Score:: 0

Documented by User: Connor Reddy MD 08/03/23 14:56
NIH Stroke Score
NIH Stroke Score
Total Score:: 0
[2023-08-03] MEDS: COMPAZINE 10 MG IV (14:05)
[2023-08-03] MEDS: NSS (PRESERVATIVE FREE) 10 ML INJ (14:06)
[2023-08-03] MEDS: dimenhyDRINATE 50 MG IV (14:06)
[2023-08-03 14:07] LABS: Erythrocyte Sed Rate 16 mm/hour (0-20)
[2023-08-03 14:30] VITALS: BP 113/77
--- NOTE | 2023-08-03 14:33 | PTCARENOTE ---
Stat Dimenhydrinate given. Shortly after pt reported feeling like ' im floating above my body' and 'shaking'. No visible tremor noted. VSS. Dr Reddy made aware. No new orders at this time. Care ongoing.
[2023-08-03 14:52] LABS: Ferritin 5.2 ng/ml (6.24-137)
[2023-08-03 15:24] LABS: Folate 11.6 ng/ml (2.76-20); Vitamin B12 779 pg/ml (239-931)
--- NOTE | 2023-08-03 15:53 | CM ---
CM met with pt and spouse bedside
They resides in a 2[address] with 2[address] with their children (2 and 5 y/o)
Pt is independent with her ADLs- no DMEs
PCP- Delphine Harry
Rx- [facility]
Discharge Disposition- home, no needs anticipated
[2023-08-03 19:00] VITALS: BP 115/70
[2023-08-03 23:15] VITALS: BP 111/75
[2023-08-04] VITALS (9 sets, daily range): BP systolic 99–135; BP diastolic 61–96; PULSE 79–100
[2023-08-04 05:10] LABS: Hemoglobin 12.3 g/dL (12.0-16.0); Mean Corp Hgb Conc. 35.1 g/dL (33.0-37.0); Mean Corpuscular Hgb 28.9 pg (27.0-31.0); Mean Corpuscular Volume 82.2 fL (81.0-99.0); Mean Platelet Volume 12.3 fL (7.4-10.4); Platelet Count 208 10^3/uL (130-400); Red Blood Cell Count 4.26 10^6/uL (4.20-5.40); Red Cell Dist. Width 13.4 % (11.5-14.5); White Blood Cell Count 7.8 10^3/uL (4.8-10.8)
[2023-08-04 05:42] LABS: Blood Urea Nitrogen 11 mg/dl (7-17); Calcium 9.2 mg/dl (8.4-10.2); Carbon Dioxide 25 mmol/L (22-30); Chloride 106 mmol/L (98-107); Estimated Creatinine Clearance 113 ml/min; Glucose 76 mg/dl (70-99); Potassium 3.9 mmol/L (3.5-5.1); Sodium 140 mmol/L (135-145); eGFR > 60.00
[2023-08-04] MEDS: SYNTHROID 75 MCG PO (06:16)
--- NOTE | 2023-08-04 07:24 | W.PN.NEURO.1 ---
Today's Communication / Plan
-
Continue Plavix per vascular surgery.
Goal normotension.
Provide dimenhydrinate 50mg IV for dizziness
prochlorperazine 10mg IV or PO PRN headache.
PT evaluations.
Consider genetic testing for Sandi Danlos syndrome as an outpatient.
Neuro Assessment/Plan
Assessment
Neuro Imaging:
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
MRI of brain unremarkable
Differentials for the patient's presentation include:
1. Acute nonocclusive proximal-mid R ICA dissection likely contributing to some symptoms.
2. Migraine with aura possibly contributing to some symptoms
Plan
Recommendations:
Continue Plavix per vascular surgery.
Goal normotension.
Provide dimenhydrinate 50mg IV for dizziness
prochlorperazine 10mg IV or PO PRN headache.
PT evaluations.
Consider genetic testing for Sandi Danlos syndrome as an outpatient.
Will follow as outpatient.
Subjective/Objective
Subjective Data
Date of Service: August 04, 2023
Objective Data
Vital Signs
Temp Pulse Resp BP Pulse Ox
36.6 C 66 16 109/74 97
08/04/23 03:00 08/04/23 03:00 08/04/23 03:00 08/04/23 03:00 08/04/23 03:00
Lab Results
08/04/23 04:28
08/04/23 04:28
Sodium 140 mmol/L (135-145) 08/04/23 04:28
Potassium 3.9 mmol/L (3.5-5.1) 08/04/23 04:28
BUN 11 mg/dl (7-17) 08/04/23 04:28
Glucose 76 mg/dl (70-99) 08/04/23 04:28
Calcium 9.2 mg/dl (8.4-10.2) 08/04/23 04:28
LDL Cholesterol, Calc 59 mg/dl 08/03/23 04:37
Vitamin B12 779 pg/ml (551-931) 08/03/23 04:37
Patient Allergies
No Known Allergies Allergy (Verified 04/29/21 05:58)
Data Reviewed
-
MRI Head: Report Reviewed
Old Records: Summarized
Past History
Past History
ED Past Medical History: Hypothyroidism
ED Past Surgical History: Orthopedic
Social History
Tobacco: Non-smoker
Alcohol: None
Drug: None
Personal:
Family History
Family History: Other (reviewed and non-contributory)
Medications
-
Medications:
Generic Name Dose Route Start Last Admin
Trade Name Freq PRN Reason Stop Dose Admin
Acetaminophen 650 mg 08/02/23 21:20
Acetaminophen 325 Mg Tablet PO 08/30/23 21:19
Q4HPRN PRN
Mild Pain / Temp > 101
Cetirizine HCl 10 mg 08/03/23 08:00 08/03/23 08:00
Cetirizine Hcl 10 Mg Tablet PO 08/31/23 07:59 10 mg
DAILY GUSTAVO Administration
Clopidogrel Bisulfate 75 mg 08/03/23 08:00 08/03/23 08:00
Clopidogrel 75 Mg Tablet PO 08/31/23 07:59 75 mg
DAILY GUSTAVO Administration
Hydralazine HCl 5 mg 08/02/23 21:20
Hydralazine 20 Mg/Ml Vial IV 08/30/23 21:19
Q6HPRN PRN
SBP > 180 or DBP > 110
Levothyroxine Sodium 75 mcg 08/04/23 06:00 08/04/23 06:16
Levothyroxine 75 Mcg Tablet PO 09/01/23 05:59 75 mcg
TuFr@00 GUSTAVO Administration
Levothyroxine Sodium 50 mcg 08/03/23 06:00 08/03/23 05:12
Levothyroxine 50 Mcg Tablet PO 08/31/23 05:59 50 mcg
SuMoWeTh@599 GUSTAVO Administration
Sodium Chloride 0 flush 08/02/23 22:00
Sodium Chloride 0.9% (Flush) Syringe IV 08/30/23 21:59
PER PROTOCOL GUSTAVO
[2023-08-04] MEDS: ZYRTEC 10 MG PO (08:16)
[2023-08-04] MEDS: PLAVIX 75 MG PO (08:16)
--- NOTE | 2023-08-04 12:43 | W.PN.HOSP.TC ---
Today's Communication/Plan
-
continue Plavix
Symptomatic treatment for dizziness with Compazine and Benadryl
Assessment / Plan
Assessment / Plan
37y F with PMH significant for Armani's thyroiditis / hypothyroidism who presented to ED complaining of dizziness. Patient states that she has had positional dizziness x about 1 month or so. Her symptoms seem to occur more often when sitting
upright or standing. Symptoms are exacerbated if she tries to 'sit up straight' and seem improved with hunching or slouching. Patient has tried to increase her fluid intake but has noted no significant change in her symptoms. She has not had an
episodes of syncope or LOC. She noted on DOA that she elicited dizzy sensations simply by moving her arms (either one). This was new and patient presented to an Urgent Care for evaluation. Bruit was appreciated on the R and patient was sent to the
ED for further evaluation.
Patient stated that she developed numbness and tingling along her R side - including the arm and leg - if she remains upright after the dizziness has started. These symptoms too can be alleviated by changes in position.
She denies any focal weakness. No vision changes, headache or speech deficits. Patient denies any neck pain.
A/P:
# New onset persistent dizziness in setting of right ICA dissection - no evidence of acute stroke on MRI brain. Vertigo is not any tinnitus. No ataxia currently. Still suspect the dizziness is part of her ICA dissection. Check orthostasis.
Check thyroid profile.
Plavix started in the ED and will continue daily.
Vascular Surgery evaluation Noted.
Will need a follow-up imaging as outpatient.
Neurology input noted-treating Dizziness symptoms with Benadryl and Compazine.
# Hypothyroidism - Stable.
TFTs normal.
Continue current T4 replacement.
There is heterogeneous attenuation and enhancement of the thyroid gland On CT neck- TSH normal. Follow with endo.
# incidental left palatine tonsil abnormality-CT angiogram of the neck-There is asymmetric enlargement of the left palatine tonsil in the oropharynx. There is partial effacement of the left vallecula. patient asymptomatic without dysphagia or oral
symptoms. Advised outpatient ENT follow-up for diet visualization.
DVT Prophylaxis: SCDs
Code Status: Full
DW at bedside
Anticipated Discharge: 24 - 48 hours
Subjective/Interval History
-
Date of Service: August 04, 2023
Patient's tolerate disease sensation. Not contiguous.
Today she tells me that she had noticed intermittent dizziness for the last 2 months. Got worse in the last 2 weeks and was in the last 2 days. She feels dizzy even while in the bed. On her feet she was feeling a lot steady. Again no vertigo.
No nausea or vomiting with it. No headache.
She denies any trauma or any sudden movements of the neck. No recent new exercise activity. No chiropractor manipulation. Not on oral contraceptive pills.
Othe than Armani's thyroiditis for which she is on thyroxine she has been healthy
Objective Data
-
Labs:
Laboratory Results
08/04/23
04:28
WBC 7.8
Hgb 12.3
Hct 35.0 L
Plt Count 208
Sodium 140
Potassium 3.9
Chloride 106
Carbon Dioxide 25
BUN 11
Creatinine 0.6
Glucose 76
Calcium 9.2
Vital Signs:
Vital Signs
Temp Pulse Resp BP Pulse Ox
98.2 F 68 16 100/61 98
08/04/23 08:00 08/04/23 08:00 08/04/23 08:00 08/04/23 08:00 08/04/23 08:00
I&O
08/03/23 08/04/23 08/05/23
06:59 06:59 06:59
Intake Total 480 / 480 1440 / 1440
Output Total 400 / 400
Balance 80 / 80 1440 / 1440
Review of Systems
-
Respiratory: Denies Trouble Breathing
Cardiac: Denies Chest Pain
Abdomen/GI: Denies Abdominal Pain, Nausea or Vomiting
Neuro: Denies Headache
Physical Exam
-
General: No Apparent Distress
HEENT: Moist Mucous Membranes
Respiratory: Clear to Auscultation
Cardiac: Regular Rhythm and S1/S2
GI: Soft
Neuro: AO x 3, No Motor Deficits and Other ( No nystagmus, no past-pointing, and no ataxia); Negative Tremors
Psych: Calm; Negative Confused
Data Reviewed
-
CT Scan: Report Reviewed by me (cta head and neck)
MRI: Report Reviewed by me (head)
Labs: Labs Reviewed by me
[2023-08-04] MEDS: ANTIVERT 25 MG PO (15:30)
--- NOTE | 2023-08-04 17:23 | PTCARENOTE ---
Pt with c/o sharp throbbing r neck pain. Dizziness with positional changes and numbness/tingling to generalized r side unchanged. VSS. Neuro assessment unchanged from last assessment. Dr Marrero notified and to call into room to speak with pt. No new
orders at this time. Care remains ongoing.
--- NOTE | 2023-08-04 18:06 | W.PN.UPDATE ---
Update Note
Progress Note Update
Asked to see patient because of neck pain.
Patient had no neck pain on presentation but developed neck pain this evening. Is on the right and lower to mid neck area.
She is feeling flushed with it. She is feeling bit anxious 2.
Ongoing persistent dizziness. No vertigo or tinnitus. Denies any headache.
No limb weakness or tingling numbness in the hands or legs.
She is tender to touch in the right neck area.
Strength 5 out of 5 bilaterally both in upper and lower extremities. No ptosis or meiosis.
No facial droop. No nystagmus.FILIPE.
In view of new symptom of neck pain will rule out continued dissection .
CT angiogram of the neck ordered.
[2023-08-04] MEDS: NSS 1000 IV (18:24)
[2023-08-05] VITALS (8 sets, daily range): BP systolic 105–147; BP diastolic 68–99; PULSE 78–99
[2023-08-05] MEDS: NSS 1000 IV ×2 (04:40→13:43)
[2023-08-05] MEDS: SYNTHROID 50 MCG PO (06:16)
[2023-08-05] MEDS: PLAVIX 75 MG PO (07:47)
[2023-08-05] MEDS: ZYRTEC 10 MG PO (07:47)
--- NOTE | 2023-08-05 10:49 | W.PN.NEURO.1 ---
Today's Communication / Plan
-
Continue clopidogrel
Neuro Assessment/Plan
Assessment
Neuro Imaging:
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
MRI of brain unremarkable
Differentials for the patient's presentation include:
1. Acute nonocclusive proximal-mid R ICA dissection likely contributing to some symptoms.
2. Migraine with aura possibly contributing to some symptoms
#3 likely anxiety associated left-sided discomfort and chest pain
Plan
Recommendations:
Continue clopidogrel
Goal normotension.
Provide dimenhydrinate 50mg IV for dizziness
prochlorperazine 10mg IV or PO PRN headache.
PT evaluations.
Consider genetic testing for Sandi Danlos syndrome as an outpatient.
Will follow as outpatient.
Subjective/Objective
Subjective Data
Date of Service: August 05, 2023
New on left side of tongue and face numbness since 944 today, unchanged since onset.
Objective Data
Vital Signs
Temp Pulse Resp BP Pulse Ox
36.7 C 80 16 120/69 97
08/05/23 07:00 08/05/23 07:00 08/05/23 07:00 08/05/23 07:00 08/05/23 07:00
Lab Results
08/04/23 04:28
08/04/23 04:28
Sodium 140 mmol/L (135-145) 08/04/23 04:28
Potassium 3.9 mmol/L (3.5-5.1) 08/04/23 04:28
BUN 11 mg/dl (7-17) 08/04/23 04:28
Glucose 76 mg/dl (70-99) 08/04/23 04:28
Calcium 9.2 mg/dl (8.4-10.2) 08/04/23 04:28
LDL Cholesterol, Calc 59 mg/dl 08/03/23 04:37
Vitamin B12 779 pg/ml (212-931) 08/03/23 04:37
Patient Allergies
No Known Allergies Allergy (Verified 04/29/21 05:58)
Review of Systems
-
History Source: Patient
All other systems: Reviewed and negative
EENT: Negative Tinnitis or Swallowing Difficulty
Respiratory: Negative Trouble Breathing
Cardiac: Chest Pain
Abdomen/GI: Negative Incontinence of Stool
Genitourinary: Negative Incontinence
Musculoskeletal: Neck Pain (on right); Negative Back Pain
Neuro: Dizzy (started intermittently); Negative Headache
Physical Exam
-
General: No Apparent Distress and Appears Stated Age
Eyes: Round OU, [place] Conjunctivae and No Ptosis
HEENT: Anicteric and Moist Mucous Membranes
Neck: Full Range of Motion
Respiratory: No Dyspnea
Cardiac: No JVD
GI: Non-distended
Skin: Unremarkable
Extremities: No Clubbing, No Cyanosis and No Edema
Psych: Negative Intact Judgement/Insight
Extended Neurological Exam
Mood & Affect: Mood Unremarkable and Affect Unremarkable
Attention Span & Concentration: Awake, Alert, Interactive and No Difficulty with 2 Step Request
Memory: Unremarkable
Tremor: Hand Tremor Absent and Head Tremor Absent
Speech: Quality Unremarkable and Quantity Unremarkable
Cranial Nerve II: Left Eye: Pupillary Size Unremarkable and Visual [place] Grossly Intact
Cranial Nerve II: Right Eye: Pupillary Size Unremarkable and Visual [place] Grossly Intact
Cranial Nerves III, IV, : Extraocular Movement: Extraocular Movement Full in all Directions
Cranial Nerve V: Facial Sensation: Facial Sensation Unremarkable to Cold and Intact to Pin [place]rick
Cranial Nerve VII: Facial Symmetry: Normal Facial Symmetry
Cranial Nerve VIII: Hearing: Unremarkable Hearing to Normal Conversational Volume
Cranial Nerves IX, X: Palate Movement: Palate Elevation Symmetric
Cranial Nerve XI: Shoulder Shrug: Unremarkable
Muscle Strength, Overall: Full in Upper Extremities
Muscle Bulk & Tone: Bulk Unremarkable and Tone Unremarkable
Pronator Drift: No Drift in Upper Extremities
Cold Sensation: Testing in Upper Extremities and Unremarkable
Vibration Sensation: Testing in Upper Extremities and Unremarkable
Touch Sensation: Unremarkable
Coordination: Gstwxj-dflm-eijlie Testing Unremarkable
Data Reviewed
-
Labs: Report Reviewed
Reviewed with: Physician, Nurse Practioner, Patient and Family
Old Records: Summarized
--- NOTE | 2023-08-05 11:14 | W.PN.HOSP.TC ---
Today's Communication/Plan
-
Continue with symptomatic treatments and follow her left facial symptoms. Neurology following.
Continue with Plavix.
Assessment / Plan
Assessment / Plan
37y F with PMH significant for Armani's thyroiditis / hypothyroidism who presented to ED complaining of dizziness. Patient states that she has had positional dizziness x about 1 month or so. Her symptoms seem to occur more often when sitting
upright or standing. Symptoms are exacerbated if she tries to 'sit up straight' and seem improved with hunching or slouching. Patient has tried to increase her fluid intake but has noted no significant change in her symptoms. She has not had an
episodes of syncope or LOC. She noted on DOA that she elicited dizzy sensations simply by moving her arms (either one). This was new and patient presented to an Urgent Care for evaluation. Bruit was appreciated on the R and patient was sent to the
ED for further evaluation.
Patient stated that she developed numbness and tingling along her R side - including the arm and leg - if she remains upright after the dizziness has started. These symptoms too can be alleviated by changes in position.
She denies any focal weakness. No vision changes, headache or speech deficits. Patient denies any neck pain.
A/P:
# New onset persistent dizziness in setting of right ICA dissection - no evidence of acute stroke on MRI brain. Not verigious and no tinnitus. No ataxia . Still suspect the dizziness is part of her ICA dissection.
Plavix started in the ED and will continue daily.
Vascular Surgery evaluation Noted.
Will need a follow-up imaging as outpatient.
Neurology input noted-treating Dizziness symptoms with Benadryl and Compazine.
Pt had right neck pain 08/04 - stat CT angio neck showed Right neck dissection which is no worse nor any occlusion.Slightly better.
Left facial numbness and numbness to the left anterior third of the tongue concerning for left trigeminal neuralgia symptoms. No obvious cranial neuropathy on clinical exam. Discussed with neurology Dr. Reddy this morning who recommends pregabalin
for now.
# Hypothyroidism - Stable.
TFTs normal.
Continue current T4 replacement.
There is heterogeneous attenuation and enhancement of the thyroid gland On CT neck- TSH normal. Follow with endo.
# incidental left palatine tonsil abnormality-CT angiogram of the neck-There is asymmetric enlargement of the left palatine tonsil in the oropharynx. There is partial effacement of the left vallecula. patient asymptomatic without dysphagia or oral
symptoms. Interestingly repeat CT Angio yesterday says [email or web address] ok .Advised outpatient ENT follow-up for diet visualization.
DVT Prophylaxis: SCDs
Code Status: Full
DW at bedside at bedside
DW neurology Dr Reddy
Anticipated Discharge: > 48 hours
Subjective/Interval History
-
Date of Service: August 05, 2023
Right neck pain is present. Mild in nature. No new symptoms compared to yesterday with regards to neck.
But this morning she started to notice numbness in the left upper lip on the left side of the face. She also has numbness/funny sensation in the left anterior tongue. No chewing difficulty or swallowing difficulty.
No blurring of vision. No double vision. No swallowing difficulty. No speech disturbance. To me she is denying any tingling numbness weakness in the hands or legs on either sides.
No headache.
Persistent dizziness. Patient has been declining her symptomatic treatments so far which includes Compazine, Benadryl and Antivert..
Objective Data
-
Vital Signs:
Vital Signs
Temp Pulse Resp BP Pulse Ox
98.0 F 80 16 120/69 97
08/05/23 07:00 08/05/23 07:00 08/05/23 07:00 08/05/23 07:00 08/05/23 07:00
I&O
08/04/23 08/05/23 08/06/23
06:59 06:59 06:59
Intake Total 1440 / 1440 1680 / 1680
Output Total 400 / 400
Balance 1440 / 1440 1280 / 1280
Review of Systems
-
Respiratory: Denies Trouble Breathing
Cardiac: Denies Chest Pain
Abdomen/GI: Denies Nausea or Vomiting
Physical Exam
-
General: No Apparent Distress
HEENT: Moist Mucous Membranes
Respiratory: Non Labored Respirations; Negative Accessory Resp Muscle Use
Neuro: AO x 3, No Motor Deficits and Other ( No ptosis, miosis;FILIPE; Tongue central. Uvula central. Extra ocular movements full.); Negative Tremors, Slurred Speech or Facial Droop
Data Reviewed
-
CT Scan: Report Reviewed by me (repeat CT head)
--- NOTE | 2023-08-05 15:32 | CM ---
Patient with Dx New onset persistent dizziness, Left facial & left anterior tongue numbness. PT recommends HH. OT Eval; no needs.
Met with patient and ; offered VN for PT or could request script for outpatient PT- patient declined both saying she hopes to improve in her dizziness and not need to do therapy. She has a full flight in stairs at home up to the bedroom and
no ability to create a bedroom on first floor.
CM continuing to follow.
Plan home.
[2023-08-05] MEDS: BENADRYL 25 MG IV (19:22)
[2023-08-05] MEDS: COMPAZINE 10 MG IV (19:24)
[2023-08-06] VITALS (7 sets, daily range): BP systolic 98–140; BP diastolic 58–97; PULSE 76–93
[2023-08-06] MEDS: NSS IV (03:25)
[2023-08-06] MEDS: SYNTHROID 50 MCG PO (05:33)
[2023-08-06] MEDS: PLAVIX 75 MG PO (08:05)
[2023-08-06] MEDS: ZYRTEC 10 MG PO (08:05)
--- NOTE | 2023-08-06 12:59 | W.PN.HOSP.TC ---
Today's Communication/Plan
-
will try valium
Assessment / Plan
Assessment / Plan
37y F with PMH significant for Armani's thyroiditis / hypothyroidism who presented to ED complaining of dizziness. Patient states that she has had positional dizziness x about 1 month or so. Her symptoms seem to occur more often when sitting
upright or standing. Symptoms are exacerbated if she tries to 'sit up straight' and seem improved with hunching or slouching. Patient has tried to increase her fluid intake but has noted no significant change in her symptoms. She has not had an
episodes of syncope or LOC. She noted on DOA that she elicited dizzy sensations simply by moving her arms (either one). This was new and patient presented to an Urgent Care for evaluation. Bruit was appreciated on the R and patient was sent to the
ED for further evaluation.
Patient stated that she developed numbness and tingling along her R side - including the arm and leg - if she remains upright after the dizziness has started. These symptoms too can be alleviated by changes in position.
She denies any focal weakness. No vision changes, headache or speech deficits. Patient denies any neck pain.
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 Not vertiginous and no tinnitus--No ataxia dizziness predates the dissection per pt--cont plavix--apprec vascular and neuro--Pt had right
neck pain 08/04 - stat CT angio neck showed Right neck dissection which is no worse nor any occlusion. Slightly better.--will try valium
Left facial numbness and numbness to the left anterior third of the tongue concerning for left trigeminal neuralgia symptoms. No obvious cranial neuropathy on clinical exam. Dr. Reddy recommends pregabalin
Hypothyroidism - Stable--TFTs normal--Continue current T4 replacement--There is heterogeneous attenuation and enhancement of the thyroid gland On CT neck- TSH normal. Follow with endo.
incidental left palatine tonsil abnormality--CT angiogram of the neck--There is asymmetric enlargement of the left palatine tonsil in the oropharynx. There is partial effacement of the left vallecula. patient asymptomatic without dysphagia or oral
symptoms. Interestingly repeat CT Angio yesterday says [email or web address] ok .Advised outpatient ENT follow-up for diet visualization.
DVT Prophylaxis: SCDs
Code Status: Full
Anticipated Discharge: 24 - 48 hours
Subjective/Interval History
-
Date of Service: August 06, 2023
pt c/o dizziness
Objective Data
-
Vital Signs:
max temp for 24 hours
08/06/23
07:00
Temp 98.1 F
Vital Signs
Temp Pulse Resp BP Pulse Ox
97.6 F 91 17 121/86 95
08/06/23 11:00 08/06/23 11:00 08/06/23 11:00 08/06/23 11:00 08/06/23 11:00
I&O
08/05/23 08/06/23 08/07/23
06:59 06:59 06:59
Intake Total 1680 / 1680 2160 / 2160 1320 / 1320
Output Total 400 / 400
Balance 1280 / 1280 2160 / 2160 1320 / 1320
Review of Systems
-
All other systems: Reviewed and negative
Neuro: Reports Dizzy
Physical Exam
-
General: Well Developed, Well Nourished and No Apparent Distress
HEENT: Normocephalic and Atraumatic
Respiratory: Clear to Auscultation; Negative Wheezes or Rhonchi
Cardiac: Regular Rhythm and S1/S2; Negative Murmur
GI: Soft, Nontender, Nondistended and Normal Bowel Sounds
Musculoskeletal: No Clubbing, No Cyanosis and No Edema
Neuro: Awake and Alert
Psych: Calm
--- NOTE | 2023-08-06 13:02 | CM ---
Patient seen at bedside with present and physician. Patient confirmed logistics and indicated that she has not had VN in the past and is having a concern about continued dizziness. CM will continue to follow for discharge planning needs.
Plan; home with no needs vs VN vs outpatient therapy
--- NOTE | 2023-08-06 14:20 | W.PN.NEURO.1 ---
Today's Communication / Plan
-
-Continue Clopidogrel
-Try scheduled Meclizine, give one 25 mg dose now, assess for dizziness and if symptoms relieve, if tolerating and no relief would increase to 25 mg BID scheduled
---Discussed other options for the dizziness would be adding low dose Valium, another option would be trying Tylenol with Triptan to see if migraine medication could give relief
---Discussed I expect it probably will take some time, at least several days for the dizziness to improve and sean
-Would do some vestibular focused therapies to help with balance as her dizziness and ability to tolerate PT improves
--For now would avoid neck manipulation based PT maneuvers
-Outpatient follow up with vascular surgery and neurology
-Consideration for outpatient testing for Ivonne Carlosbrandons
Neuro Assessment/Plan
Assessment
37 year old woman with history of rare migraine with aura presenting to hospital with feeling of constant dizziness that started around of last week.
Since about of this year she has had repeated episodes of short lasting dizziness usually worsened with head turns, was short lasting feeling of tunnel like vision and spinning feeling about 1-2 minutes and then resolving.
No recent obvious causes of right internal carotid artery dissection
Patient may have had BPPV as cause of her episode dizziness since , then had dissection of carotid artery compounding symptoms. Less likely that repeated episodes of dizziness would be a presentation of carotid dissection.
History of infrequent migraine with aura, patients with migraine diagnosis so have more of a tendency towards dizziness and discomfort when facing insult to head/neck area like concussion, arterial dissection, etc.
Atypical but carotid artery dissection is probably contributing some to her current symptoms of dizziness.
Brain MRI negative for infarction.
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
MRI of brain unremarkable
Subjective/Objective
Subjective Data
Date of Service: August 06, 2023
No acute events, feeling of constant dizziness, no vomiting, no vision changes, no hearing changes
Objective Data
Vital Signs
Temp Pulse Resp BP Pulse Ox
97.6 F 91 17 121/86 95
08/06/23 11:00 08/06/23 11:00 08/06/23 11:00 08/06/23 11:00 08/06/23 11:00
Lab Results
08/04/23 04:28
08/04/23 04:28
Sodium 140 mmol/L (135-145) 08/04/23 04:28
Potassium 3.9 mmol/L (3.5-5.1) 08/04/23 04:28
BUN 11 mg/dl (7-17) 08/04/23 04:28
Glucose 76 mg/dl (70-99) 08/04/23 04:28
Calcium 9.2 mg/dl (8.4-10.2) 08/04/23 04:28
LDL Cholesterol, Calc 59 mg/dl 08/03/23 04:37
Vitamin B12 779 pg/ml (239-931) 08/03/23 04:37
Patient Allergies
No Known Allergies Allergy (Verified 04/29/21 05:58)
Review of Systems
-
History Source: Patient
All other systems: Reviewed and negative
Constitutional: No Symptoms
EENT: No Symptoms Reported
Respiratory: No Symptoms
Cardiac: No Symptoms
Abdomen/GI: No Symptoms
Genitourinary: No Symptoms
Musculoskeletal: No Symptoms
Skin: No Symptoms
Neuro: Dizzy
Endocrine: No Symptoms
Hematologic / Lymphatic: No Symptoms
Allergy / Immunology: No Symptoms
Physical Exam
-
General: Well Nourished
Eyes: No Ptosis
HEENT: Normocephalic
Neck: No Bruits Bilaterally
Respiratory: Clear to Auscultation
Cardiac: Regular Rhythm
GI: Normal Bowel Sounds
Skin: Unremarkable
Extremities: No Clubbing
Psych: Unremarkable
Extended Neurological Exam
Mood & Affect: Mood Unremarkable and Affect Unremarkable
Attention Span & Concentration: Awake, Alert and Interactive
Memory: Unremarkable
Tremor: Hand Tremor Absent
Involuntary Movement: None
Speech: Quality Unremarkable and Quantity Unremarkable; Negative Expressive Aphasia or Receptive Aphasia
Cranial Nerve II: Left Eye: Pupillary Reactivity Unremarkable and Pupillary Size Unremarkable
Cranial Nerve II: Right Eye: Pupillary Reactivity Unremarkable and Pupillary Size Unremarkable
Cranial Nerves III, IV, : Extraocular Movement: Extraocular Movement Full in all Directions and Other (No nystagmus, negative test of skew)
Muscle Strength, Overall: Full Throughout
Pronator Drift: No Drift in Upper Extremities
Deep Tendon Reflexes: Trace Throughout
Coordination: Deaptn-mfhh-xpohet Testing Unremarkable
[2023-08-06] MEDS: ANTIVERT 25 MG PO (15:03)
[2023-08-07] VITALS (8 sets, daily range): BP systolic 105–131; BP diastolic 66–86; PULSE 74–79
[2023-08-07] MEDS: SYNTHROID 75 MCG PO (05:52)
[2023-08-07] MEDS: ZYRTEC 10 MG PO (07:23)
[2023-08-07] MEDS: PLAVIX 75 MG PO (07:23)
--- NOTE | 2023-08-07 09:07 | W.PN.NEURO.1 ---
Today's Communication / Plan
-
-Continue Clopidogrel 75 mg daily, neuro checks
-She declines further meclizine
-Trial migraine cocktail for symptom relief, one 1000 mg dose Tylenol, 1 gram IV magnesium, 25 mg Sumatriptan. Repeat Sumatriptan dose at 50 mg after 2 hours if no relief
-Last medication as option for symptom relief would be PO Valium
-Pending MRI brain and C spine
-Avoid neck manipulation maneuvers
-Anticipate will improve with time and PT for improving balance
Neuro Assessment/Plan
Assessment
37 year old woman with history of rare migraine with aura presenting to hospital with feeling of constant dizziness that started around of last week.
Since about of this year she has had repeated episodes of short lasting dizziness usually worsened with head turns, was short lasting feeling of tunnel like vision and spinning feeling about 1-2 minutes and then resolving.
No recent obvious causes of right internal carotid artery dissection
Patient may have had BPPV as cause of her episode dizziness since , then had dissection of carotid artery compounding symptoms. Less likely that repeated episodes of dizziness would be a presentation of carotid dissection.
History of infrequent migraine with aura, patients with migraine diagnosis so have more of a tendency towards dizziness and discomfort when facing insult to head/neck area like concussion, arterial dissection, etc.
Atypical but carotid artery dissection is probably contributing some to her current symptoms of dizziness,
Brain MRI negative for infarction.
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
MRI of brain unremarkable
Subjective/Objective
Subjective Data
Date of Service: August 07, 2023
No acute events, had some hearing change seems on left ear, pulsating right arm, still with dizziness, no vomiting
Objective Data
Vital Signs
Temp Pulse Resp BP Pulse Ox
98.5 F 83 16 131/74 100
08/07/23 07:00 08/07/23 07:00 08/07/23 07:00 08/07/23 07:00 08/07/23 07:00
Lab Results
08/04/23 04:28
08/04/23 04:28
Sodium 140 mmol/L (135-145) 08/04/23 04:28
Potassium 3.9 mmol/L (3.5-5.1) 08/04/23 04:28
BUN 11 mg/dl (7-17) 08/04/23 04:28
Glucose 76 mg/dl (70-99) 08/04/23 04:28
Calcium 9.2 mg/dl (8.4-10.2) 08/04/23 04:28
LDL Cholesterol, Calc 59 mg/dl 08/03/23 04:37
Vitamin B12 779 pg/ml (239-931) 08/03/23 04:37
Patient Allergies
No Known Allergies Allergy (Verified 04/29/21 05:58)
Review of Systems
-
History Source: Patient
All other systems: Reviewed and negative
Constitutional: No Symptoms
EENT: No Symptoms Reported
Respiratory: No Symptoms
Cardiac: No Symptoms
Abdomen/GI: No Symptoms
Genitourinary: No Symptoms
Musculoskeletal: No Symptoms
Skin: No Symptoms
Neuro: Dizzy; Negative Headache
Endocrine: No Symptoms
Hematologic / Lymphatic: No Symptoms
Allergy / Immunology: No Symptoms
Physical Exam
-
General: Well Nourished, No Apparent Distress and Comfortable
HEENT: Normocephalic
Neck: No Bruits Bilaterally
Respiratory: Clear to Auscultation
Cardiac: Regular Rhythm
GI: Normal Bowel Sounds
Skin: Unremarkable
Extremities: No Clubbing
Psych: Unremarkable
Extended Neurological Exam
Mood & Affect: Mood Unremarkable and Affect Unremarkable
Attention Span & Concentration: Awake, Alert and Interactive
Memory: Unremarkable
Tremor: Hand Tremor Absent
Involuntary Movement: None
Speech: Quality Unremarkable and Quantity Unremarkable; Negative Expressive Aphasia, Receptive Aphasia or Dysarthric
Cranial Nerve II: Left Eye: Pupillary Reactivity Unremarkable, Pupillary Size Unremarkable and Visual [place] Intact
Cranial Nerve II: Right Eye: Pupillary Reactivity Unremarkable and Visual [place] Intact
Cranial Nerves III, IV, : Extraocular Movement: Extraocular Movement Full in all Directions and Other (No nystagmus)
Cranial Nerve VII: Facial Symmetry: Normal Facial Symmetry
Muscle Strength, Overall: Full Throughout
Pronator Drift: No Drift in Upper Extremities
Deep Tendon Reflexes: Unremarkable Throughout
Touch Sensation: Unremarkable
Coordination: Liyqst-peml-kcwkka Testing Unremarkable and Other (Fine finger movements symmetric and normal)
Babinski Sign: Absent Bilaterally
Data Reviewed
-
CT-A: Report Reviewed and Image Reviewed
CT Head: Report Reviewed and Image Reviewed
MRI Head: Report Reviewed and Image Reviewed
Labs: Report Reviewed
[2023-08-07] MEDS: TYLENOL 1000 MG PO (09:40)
[2023-08-07] MEDS: IMITREX 25 MG PO (09:40)
[2023-08-07] MEDS: MAGNESIUM SULFATE 102 GRAMS IV (09:41)
--- NOTE | 2023-08-07 12:14 | W.PN.HOSP.TC ---
Today's Communication/Plan
-
await MRI
pain/dizziness control per neuro
PT eval
Assessment / Plan
Assessment / Plan
37y F with PMH significant for Armani's thyroiditis / hypothyroidism who presented to ED complaining of dizziness. Patient states that she has had positional dizziness x about 1 month or so. Her symptoms seem to occur more often when sitting
upright or standing. Symptoms are exacerbated if she tries to 'sit up straight' and seem improved with hunching or slouching. Patient has tried to increase her fluid intake but has noted no significant change in her symptoms. She has not had an
episodes of syncope or LOC. She noted on DOA that she elicited dizzy sensations simply by moving her arms (either one). This was new and patient presented to an Urgent Care for evaluation. Bruit was appreciated on the R and patient was sent to the
ED for further evaluation.
Patient stated that she developed numbness and tingling along her R side - including the arm and leg - if she remains upright after the dizziness has started. These symptoms too can be alleviated by changes in position.
She denies any focal weakness. No vision changes, headache or speech deficits. Patient denies any neck pain.
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 Not vertiginous and no tinnitus--No ataxia dizziness predates the dissection per pt--cont plavix--apprec vascular and neuro--Pt had right
neck pain 08/04 - stat CT angio neck showed Right neck dissection which is no worse nor any occlusion--pt no better, getting sumatriptan, IV mag from neuro, await repeat MRI brain and C-spine w/wo contrast per pt request
Left facial numbness and numbness to the left anterior third of the tongue concerning for left trigeminal neuralgia symptoms. No obvious cranial neuropathy on clinical exam. Dr. Reddy recommends pregabalin
Hypothyroidism - Stable--TFTs normal--Continue current T4 replacement--There is heterogeneous attenuation and enhancement of the thyroid gland On CT neck- TSH normal. Follow with endo.
incidental left palatine tonsil abnormality--CT angiogram of the neck--There is asymmetric enlargement of the left palatine tonsil in the oropharynx. There is partial effacement of the left vallecula. patient asymptomatic without dysphagia or oral
symptoms. Interestingly repeat CT Angio yesterday says greyson solano .Advised outpatient ENT follow-up for diet visualization.
DVT Prophylaxis: SCDs
Code Status: Full
Anticipated Discharge: 24 - 48 hours
Subjective/Interval History
-
Date of Service: August 07, 2023
pt still dizzy
Objective Data
-
Vital Signs:
max temp for 24 hours
08/07/23
07:00
Temp 98.5 F
Vital Signs
Temp Pulse Resp BP Pulse Ox
98.2 F 78 18 123/86 99
08/07/23 11:00 08/07/23 11:00 08/07/23 11:00 08/07/23 11:00 08/07/23 11:00
I&O
08/06/23 08/07/23 08/08/23
06:59 06:59 06:59
Intake Total 2160 / 2160 1720 / 1720
Balance 2160 / 2160 1720 / 1720
Review of Systems
-
All other systems: Reviewed and negative
Neuro: Reports Dizzy
Physical Exam
-
General: Well Developed, Well Nourished and No Apparent Distress
HEENT: Normocephalic and Atraumatic
Respiratory: Clear to Auscultation; Negative Wheezes, Rales or Rhonchi
Cardiac: Regular Rhythm and S1/S2; Negative Murmur
GI: Soft, Nontender, Nondistended and Normal Bowel Sounds
Musculoskeletal: No Clubbing, No Cyanosis and No Edema
Psych: Calm
[2023-08-07] MEDS: IMITREX 50 MG PO (14:39)
[2023-08-08] VITALS (10 sets, daily range): BP systolic 104–142; BP diastolic 63–97; PULSE 78–98; O2SAT 97
[2023-08-08 05:24] LABS: Hematocrit 35.4 % (37.0-47.0); Hemoglobin 12.4 g/dL (12.0-16.0); Mean Corpuscular Hgb 29.3 pg (27.0-31.0); Mean Corpuscular Volume 83.7 fL (81.0-99.0); Mean Platelet Volume 12.4 fL (7.4-10.4); Platelet Count 192 10^3/uL (130-400); Red Blood Cell Count 4.23 10^6/uL (4.20-5.40); Red Cell Dist. Width 13.2 % (11.5-14.5); White Blood Cell Count 7.3 10^3/uL (4.8-10.8)
[2023-08-08 05:47] LABS: Blood Urea Nitrogen 15 mg/dl (7-17); Calcium 9.2 mg/dl (8.4-10.2); Carbon Dioxide 23 mmol/L (22-30); Chloride 105 mmol/L (98-107); Estimated Creatinine Clearance 113 ml/min; Glucose 82 mg/dl (70-99); Potassium 4.1 mmol/L (3.5-5.1); Sodium 139 mmol/L (135-145); eGFR > 60.00
[2023-08-08] MEDS: PLAVIX 75 MG PO (07:02)
[2023-08-08] MEDS: ZYRTEC 10 MG PO (07:02)
[2023-08-08] MEDS: SYNTHROID 50 MCG PO (07:37)
--- NOTE | 2023-08-08 08:02 | W.PN.NEURO.1 ---
Today's Communication / Plan
-
-Continue Clopidogrel
-Discussed with [facility] center Dr Gandhi who felt that inpatient hospitalization and transfer would not be indicated, they can get the patient an expedited outpatient appointment in 1 to 2 weeks
-Stressed the importance of vestibular physical therapy for retraining the patient's sense of balance
-I would avoid doing Martha-Hallpike maneuver given the carotid dissection
-Discussed options of meclizine and Valium as needed as well as SSRI, patient does not want to pursue these at this time
-PT evaluations, PMR evaluation given significant disability from baseline and abnormal gait
Neuro Assessment/Plan
Assessment
37 year old woman with history of rare migraine with aura presenting to hospital with feeling of constant dizziness that started around of last week.
Since about of this year she has had repeated episodes of short lasting dizziness usually worsened with head turns, was short lasting feeling of tunnel like vision and spinning feeling about 1-2 minutes and then resolving.
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
MRI of brain unremarkable
No recent obvious causes of right internal carotid artery dissection
Patient may have had BPPV as cause of her episode dizziness since , then had dissection of carotid artery which possibly compounded symptoms of BPPV.
Symptoms of dizziness has evolved into a constant sensation at this point.
Did not respond to migraine treatment so unlikely a vestibular migraine. No improvement with 1-2 doses of meclizine. Patient does not want to pursue Valium or SSRI at this time.
Probably BPPV evolving into more constant dizziness explains most of her symptoms. Unclear that carotid is really playing much of a role but could have worsened symptoms.
Normally I would do a Martha-Hallpike maneuver on her but I fear that I could worsen the carotid dissection by doing this so would avoid
Subjective/Objective
Subjective Data
Date of Service: August 08, 2023
No acute events, no change in dizziness, no vomiting, no headache or vision change, some buzzing sound in the ear
Objective Data
Vital Signs
Temp Pulse Resp BP Pulse Ox
97.6 F 77 17 133/83 98
08/08/23 07:50 08/08/23 07:50 08/08/23 07:50 08/08/23 07:50 08/08/23 07:50
Lab Results
08/08/23 04:27
08/08/23 04:27
Sodium 139 mmol/L (135-145) 08/08/23 04:27
Potassium 4.1 mmol/L (3.5-5.1) 08/08/23 04:27
BUN 15 mg/dl (7-17) 08/08/23 04:27
Glucose 82 mg/dl (70-99) 08/08/23 04:27
Calcium 9.2 mg/dl (8.4-10.2) 08/08/23 04:27
LDL Cholesterol, Calc 59 mg/dl 08/03/23 04:37
Vitamin B12 779 pg/ml (239-931) 08/03/23 04:37
Patient Allergies
No Known Allergies Allergy (Verified 04/29/21 05:58)
Review of Systems
-
History Source: Patient
All other systems: Reviewed and negative
Constitutional: No Symptoms
EENT: No Symptoms Reported
Respiratory: No Symptoms
Cardiac: No Symptoms
Abdomen/GI: No Symptoms
Genitourinary: No Symptoms
Musculoskeletal: No Symptoms
Skin: No Symptoms
Neuro: Dizzy; Negative Headache or Weakness
Endocrine: No Symptoms
Hematologic / Lymphatic: No Symptoms
Allergy / Immunology: No Symptoms
Physical Exam
-
General: Comfortable
Eyes: No Ptosis
HEENT: Normocephalic
Neck: No Bruits Bilaterally
Respiratory: Clear to Auscultation
Cardiac: Regular Rhythm
GI: Normal Bowel Sounds
Skin: Unremarkable
Extremities: No Clubbing
Psych: Unremarkable
Extended Neurological Exam
Mood & Affect: Mood Unremarkable and Affect Unremarkable
Attention Span & Concentration: Awake, Alert and Interactive
Memory: Unremarkable
Tremor: Hand Tremor Absent
Involuntary Movement: None
Speech: Quality Unremarkable and Quantity Unremarkable; Negative Expressive Aphasia, Receptive Aphasia or Dysarthric
Cranial Nerve II: Left Eye: Pupillary Reactivity Unremarkable and Pupillary Size Unremarkable
Cranial Nerve II: Right Eye: Pupillary Reactivity Unremarkable and Pupillary Size Unremarkable
Cranial Nerves III, IV, : Extraocular Movement: Extraocular Movement Full in all Directions
Cranial Nerve VII: Facial Symmetry: Normal Facial Symmetry
Muscle Strength, Overall: Full Throughout
Pronator Drift: No Drift in Upper Extremities
Deep Tendon Reflexes: Trace Throughout
Vibration Sensation: Unremarkable
Touch Sensation: Unremarkable
Coordination: [id number] Testing Unremarkable
Data Reviewed
-
CT-A: Report Reviewed and Image Reviewed
CT Head: Report Reviewed and Image Reviewed
MRI Head: Report Reviewed and Image Reviewed
MRI Cervical Spine: Report Reviewed and Image Reviewed
--- NOTE | 2023-08-08 10:50 | W.PN.HOSP.TC ---
Today's Communication/Plan
-
Sixto vs [facility]
cont supportive care--pt will not take meclizine
Assessment / Plan
Assessment / Plan
37y F with PMH significant for Armani's thyroiditis / hypothyroidism who presented to ED complaining of dizziness. Patient states that she has had positional dizziness x about 1 month or so. Her symptoms seem to occur more often when sitting
upright or standing. Symptoms are exacerbated if she tries to 'sit up straight' and seem improved with hunching or slouching. Patient has tried to increase her fluid intake but has noted no significant change in her symptoms. She has not had an
episodes of syncope or LOC. She noted on DOA that she elicited dizzy sensations simply by moving her arms (either one). This was new and patient presented to an Urgent Care for evaluation. Bruit was appreciated on the R and patient was sent to the
ED for further evaluation.
Patient stated that she developed numbness and tingling along her R side - including the arm and leg - if she remains upright after the dizziness has started. These symptoms too can be alleviated by changes in position.
She denies any focal weakness. No vision changes, headache or speech deficits. Patient denies any neck pain.
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 Not vertiginous and no tinnitus--No ataxia dizziness predates the dissection per pt--cont plavix--apprec vascular and neuro--Pt had right
neck pain 08/04 - stat CT angio neck showed Right neck dissection which is no worse nor any occlusion--pt no better, getting sumatriptan, IV mag from neuro, repeat MRI brain and C-spine w/wo contrast without significant findings
Left facial numbness and numbness to the left anterior third of the tongue concerning for left trigeminal neuralgia symptoms. No obvious cranial neuropathy on clinical exam. Dr. Reddy recommends pregabalin
Hypothyroidism - Stable--TFTs normal--Continue current T4 replacement--There is heterogeneous attenuation and enhancement of the thyroid gland On CT neck- TSH normal. Follow with endo.
incidental left palatine tonsil abnormality--CT angiogram of the neck--There is asymmetric enlargement of the left palatine tonsil in the oropharynx. There is partial effacement of the left vallecula. patient asymptomatic without dysphagia or oral
symptoms. Interestingly repeat CT Angio yesterday says greyson solano .Advised outpatient ENT follow-up for diet visualization.
DVT Prophylaxis: SCDs
Code Status: Full
Dr. Porras reaching out to [facility] at pt request vs acute rehab if candidate--will consult Dr. Odonnell
Anticipated Discharge: > 48 hours
Subjective/Interval History
-
Date of Service: August 08, 2023
pt still dizzy--spoke with DR. Porras--he will reach out to [facility] at pt request
Objective Data
-
Labs:
Laboratory Results
08/08/23
04:27
WBC 7.3
Hgb 12.4
Hct 35.4 L
Plt Count 192
Sodium 139
Potassium 4.1
Chloride 105
Carbon Dioxide 23
BUN 15
Creatinine 0.6
Glucose 82
Calcium 9.2
Vital Signs:
max temp for 24 hours
08/07/23
23:32
Temp 98.4 F
Vital Signs
Temp Pulse Resp BP Pulse Ox
97.6 F 77 17 133/83 98
08/08/23 07:50 08/08/23 07:50 08/08/23 07:50 08/08/23 07:50 08/08/23 07:58
I&O
08/07/23 08/08/23 08/09/23
06:59 06:59 06:59
Intake Total 1720 / 1720 580 / 580
Balance 1720 / 1720 580 / 580
Review of Systems
-
All other systems: Reviewed and negative
Physical Exam
-
General: Well Developed, Well Nourished and No Apparent Distress
HEENT: Normocephalic and Atraumatic
Respiratory: Clear to Auscultation; Negative Wheezes or Rhonchi
Cardiac: Regular Rhythm and S1/S2; Negative Murmur
GI: Soft, Nontender, Nondistended and Normal Bowel Sounds
Musculoskeletal: No Clubbing, No Cyanosis and No Edema
Neuro: Other (dizzy--moves head gingerly)
Psych: Calm
[2023-08-08 15:33] LABS: Glucose - Point of Care 119 mg/dl (70-99)
[2023-08-08] MEDS: VALIUM 5 MG PO (15:43)
--- NOTE | 2023-08-08 16:22 | PTCARENOTE ---
Starting around 1520 energy conservation specialist noted to be alarming for heart rate in the 140s; Upon arrival to room patient noted to be diaphoretic; Tachypneic; Tremors in all extremities; Patient reported significantly increased dizziness, numbness down
to elbows bilaterally; Bilateral hand tingling, bilateral tingling from toes to knees; Patient reported chest tightness; Accuchek completed; EKG completed; Dr. Joseph notified; Stat dose of oral valium ordered, see MAR; Hand truck driving instructor equal
bilaterally, dorsiflexion and plantar flexion equal; Bilateral radial pulses bounding; Bilateral pedal pulses +2; Apical pulse regular; Pupils 5mm equal, round, reactive, brisk; NIHSS score 0; Patient now reports that numbness has resolved, tingling
in bilateral hands and lower extremities resolved; Bed in lowest position, wheels locked; Call smith within reach; Assessment ongoing
[2023-08-08] MEDS: MELATONIN 3 MG PO (21:39)
[2023-08-09 03:07] VITALS: BP 114/79
[2023-08-09] MEDS: SYNTHROID 50 MCG PO (05:49)
[2023-08-09 08:14] VITALS: BP 128/78
[2023-08-09] MEDS: ZYRTEC 10 MG PO (09:03)
[2023-08-09] MEDS: PLAVIX 75 MG PO (09:04)
[2023-08-09 10:00] VITALS: BP 103/72; BP 105/75; BP 113/77; PULSE 93; PULSE 95; PULSE 96
--- NOTE | 2023-08-09 10:50 | W.PN.HOSP.TC ---
Today's Communication/Plan
-
PRN valium
await eval for [facility]
Assessment / Plan
Assessment / Plan
37y F with PMH significant for Armani's thyroiditis / hypothyroidism who presented to ED complaining of dizziness. Patient states that she has had positional dizziness x about 1 month or so. Her symptoms seem to occur more often when sitting
upright or standing. Symptoms are exacerbated if she tries to 'sit up straight' and seem improved with hunching or slouching. Patient has tried to increase her fluid intake but has noted no significant change in her symptoms. She has not had an
episodes of syncope or LOC. She noted on DOA that she elicited dizzy sensations simply by moving her arms (either one). This was new and patient presented to an Urgent Care for evaluation. Bruit was appreciated on the R and patient was sent to the
ED for further evaluation.
Patient stated that she developed numbness and tingling along her R side - including the arm and leg - if she remains upright after the dizziness has started. These symptoms too can be alleviated by changes in position.
She denies any focal weakness. No vision changes, headache or speech deficits. Patient denies any neck pain.
persistent dizziness in setting of right ICA dissection - no evidence of acute stroke on MRI brain. Not vertiginous and no tinnitus--No ataxia- dizziness predates the dissection per pt--cont plavix--apprec vascular and neuro--Pt had right neck pain
08/04 - stat CT angio neck showed Right neck dissection which is no worse nor any occlusion-- repeat MRI brain and C-spine w/wo contrast without significant findings--objectively improved with valium given yesterday--will add lower dose Q6H prn
Left facial numbness and numbness to the left anterior third of the tongue concerning for left trigeminal neuralgia symptoms. No obvious cranial neuropathy on clinical exam. Dr. eRddy recommends pregabalin
Hypothyroidism - Stable--TFTs normal--Continue current T4 replacement--There is heterogeneous attenuation and enhancement of the thyroid gland On CT neck- TSH normal. Follow with endo.
incidental left palatine tonsil abnormality--CT angiogram of the neck--There is asymmetric enlargement of the left palatine tonsil in the oropharynx. There is partial effacement of the left vallecula. patient asymptomatic without dysphagia or oral
symptoms. Interestingly repeat CT Angio yesterday says greyson solano .Advised outpatient ENT follow-up for diet visualization.
DVT Prophylaxis: SCDs
Code Status: Full
Dr. Porras reaching out to [facility] at pt request ([facility] decline to accept pt in transfer) vs acute rehab if candidate--will consult Dr. Odonnell
Anticipated Discharge: > 48 hours
Subjective/Interval History
-
Date of Service: August 09, 2023
pt sitting in the chair talking with her Mom--turned her head to look at me--smiling
Objective Data
-
Vital Signs:
max temp for 24 hours
08/08/23
23:24
Temp 98.7 F
Vital Signs
Temp Pulse Resp BP Pulse Ox
98.0 F 72 16 128/78 98
08/09/23 08:14 08/09/23 08:14 08/09/23 08:14 08/09/23 08:14 08/09/23 08:14
I&O
08/08/23 08/09/23 08/10/23
06:59 06:59 06:59
Intake Total 580 / 580 3480 / 3480
Balance 580 / 580 3480 / 3480
Review of Systems
-
All other systems: Reviewed and negative
Neuro: Reports Dizzy (but better)
Physical Exam
-
General: Well Developed, Well Nourished and No Apparent Distress
HEENT: Normocephalic and Atraumatic
Cardiac: Regular Rhythm and S1/S2; Negative Murmur
GI: Soft, Nontender, Nondistended and Normal Bowel Sounds
Musculoskeletal: No Clubbing, No Cyanosis and No Edema
Neuro: Awake and Alert
Psych: Calm
[2023-08-09 11:30] VITALS: BP 115/77
[2023-08-09 15:05] VITALS: BP 116/82
[2023-08-09] MEDS: VALIUM 2 MG PO (20:58)
[2023-08-09 23:28] VITALS: BP 112/73
[2023-08-10] MEDS: SYNTHROID 50 MCG PO (06:13)
[2023-08-10 07:15] VITALS: BP 124/67
[2023-08-10] MEDS: ZYRTEC 10 MG PO (07:38)
[2023-08-10] MEDS: PLAVIX 75 MG PO (07:38)
[2023-08-10] MEDS: VALIUM 2 MG PO ×3 (10:18→22:44)
--- NOTE | 2023-08-10 10:39 | W.PN.HOSP.TC ---
Today's Communication/Plan
-
continue with Valium
Continue with PT eval
DC planning
Assessment / Plan
Assessment / Plan
37y F with PMH significant for Armani's thyroiditis / hypothyroidism who presented to ED complaining of dizziness. Patient states that she has had positional dizziness x about 1 month or so. Her symptoms seem to occur more often when sitting
upright or standing. Symptoms are exacerbated if she tries to 'sit up straight' and seem improved with hunching or slouching. Patient has tried to increase her fluid intake but has noted no significant change in her symptoms. She has not had an
episodes of syncope or LOC. She noted on DOA that she elicited dizzy sensations simply by moving her arms (either one). This was new and patient presented to an Urgent Care for evaluation. Bruit was appreciated on the R and patient was sent to the
ED for further evaluation.
Patient stated that she developed numbness and tingling along her R side - including the arm and leg - if she remains upright after the dizziness has started. These symptoms too can be alleviated by changes in position.
She denies any focal weakness. No vision changes, headache or speech deficits. Patient denies any neck pain.
persistent dizziness in setting of right ICA dissection - no evidence of acute stroke on MRI brain. Not vertiginous and no tinnitus--No ataxia- dizziness predates the dissection per pt--cont plavix--apprec vascular and neuro--Pt had right neck pain
08/04 - stat CT angio neck showed Right neck dissection which is no worse nor any occlusion-- repeat MRI brain and C-spine w/wo contrast without significant findings--objectively improved with valium use have since yesterday Which would continue.
Continue with PT evaluations.
Left facial numbness and numbness to the left anterior third of the tongue concerning for left trigeminal neuralgia symptoms. No obvious cranial neuropathy on clinical exam. Dr. Reddy recommends pregabalin
Hypothyroidism - Stable--TFTs normal--Continue current T4 replacement--There is heterogeneous attenuation and enhancement of the thyroid gland On CT neck- TSH normal. Follow with endo.
incidental left palatine tonsil abnormality--CT angiogram of the neck--There is asymmetric enlargement of the left palatine tonsil in the oropharynx. There is partial effacement of the left vallecula. patient asymptomatic without dysphagia or oral
symptoms. Interestingly repeat CT Angio yesterday says rgeyson solano .Advised outpatient ENT follow-up for diet visualization.
DVT Prophylaxis: SCDs
Code Status: Full
Dr. Porras reached out to [facility] at pt request ([facility] decline to accept pt in transfer)
Await acute rehab placement evaluations
Anticipated Discharge: Within 24 hours
Subjective/Interval History
-
Date of Service: August 10, 2023
patient started to use Valium which seems to be helping her dizziness now.
Objective Data
-
Vital Signs:
Vital Signs
Temp Pulse Resp BP Pulse Ox
98.1 F 77 17 124/67 98
08/10/23 07:15 08/10/23 07:15 08/10/23 07:15 08/10/23 07:15 08/10/23 07:49
I&O
08/09/23 08/10/23 08/11/23
06:59 06:59 06:59
Intake Total 3480 / 3480 720 / 720 120 / 120
Balance 3480 / 3480 720 / 720 120 / 120
Review of Systems
-
Respiratory: Denies Trouble Breathing
Cardiac: Denies Chest Pain
Abdomen/GI: Denies Abdominal Pain, Nausea or Vomiting
Physical Exam
-
General: No Apparent Distress and Comfortable
Respiratory: Non Labored Respirations; Negative Accessory Resp Muscle Use
Neuro: AO x 3; Negative Tremors
Psych: Calm; Negative Confused
Data Reviewed
-
Labs: Labs Reviewed by me
[2023-08-10 15:00] VITALS: BP 117/77
[2023-08-10 15:37] VITALS: BP 117/77; BP 120/76; BP 130/77; PULSE 107; PULSE 118; PULSE 95
[2023-08-10 22:50] VITALS: BP 114/74
[2023-08-11] MEDS: PLAVIX 75 MG PO (07:34)
[2023-08-11] MEDS: SYNTHROID 75 MCG PO (07:34)
[2023-08-11] MEDS: ZYRTEC 10 MG PO (07:34)
[2023-08-11 07:44] VITALS: BP 101/67
[2023-08-11 07:48] VITALS: BP 101/67; BP 113/82; BP 124/72; PULSE 108; PULSE 80; PULSE 90
--- NOTE | 2023-08-11 08:32 | W.PN.HOSP.TC ---
Today's Communication/Plan
-
PT eval and DC planning
Assessment / Plan
Assessment / Plan
37y F with PMH significant for Armani's thyroiditis / hypothyroidism who presented to ED complaining of dizziness. Patient states that she has had positional dizziness x about 1 month or so. Her symptoms seem to occur more often when sitting
upright or standing. Symptoms are exacerbated if she tries to 'sit up straight' and seem improved with hunching or slouching. Patient has tried to increase her fluid intake but has noted no significant change in her symptoms. She has not had an
episodes of syncope or LOC. She noted on DOA that she elicited dizzy sensations simply by moving her arms (either one). This was new and patient presented to an Urgent Care for evaluation. Bruit was appreciated on the R and patient was sent to the
ED for further evaluation.
Patient stated that she developed numbness and tingling along her R side - including the arm and leg - if she remains upright after the dizziness has started. These symptoms too can be alleviated by changes in position.
She denies any focal weakness. No vision changes, headache or speech deficits. Patient denies any neck pain.
persistent non specific dizziness in setting of right ICA dissection - no evidence of acute stroke on MRI brain. Not vertiginous and no tinnitus--No ataxia- dizziness predates the dissection per pt--cont plavix--apprec vascular and neuro--Pt had
right neck pain 08/04 - stat CT angio neck showed Right neck dissection which is no worse nor any occlusion-- repeat MRI brain and C-spine w/wo contrast without significant findings--objectively improved with valium use have since yesterday Which
would continue. Continue with PT evaluations.
Her dizziness is non specific . CW symptomatic tx and follow with [facility] ( see neurology note)
Left facial numbness and numbness to the left anterior third of the tongue concerning for left trigeminal neuralgia symptoms. No obvious cranial neuropathy on clinical exam. Dr. Reddy recommends pregabalin
Hypothyroidism - Stable--TFTs normal--Continue current T4 replacement--There is heterogeneous attenuation and enhancement of the thyroid gland On CT neck- TSH normal. Follow with endo.
Incidental left palatine tonsil abnormality--CT angiogram of the neck--There is asymmetric enlargement of the left palatine tonsil in the oropharynx. There is partial effacement of the left vallecula. patient asymptomatic without dysphagia or oral
symptoms. Interestingly repeat CT Angio yesterday says greyson ok .Advised outpatient ENT follow-up for diet visualization.
DVT Prophylaxis: SCDs
Code Status: Full
Dr. Porras reached out to [facility] at pt request ([facility] decline to accept pt in transfer)
Await acute rehab placement evaluations
Anticipated Discharge: Today
Subjective/Interval History
-
Date of Service: August 11, 2023
Patient still with dizziness. She perceives it sitting. She perceives it with movement as well.
This morning she was brushing her teeth with the electrical toothbrush and she was feeling dizzy with vibrations.
Valium seems to help.
Objective Data
-
Vital Signs:
Vital Signs
Temp Pulse Resp BP Pulse Ox
98.3 F 90 17 101/67 97
08/11/23 07:44 08/11/23 07:44 08/11/23 07:44 08/11/23 07:44 08/11/23 07:44
I&O
08/10/23 08/11/23 08/12/23
06:59 06:59 06:59
Intake Total 720 / 720 680 / 680
Balance 720 / 720 680 / 680
Review of Systems
-
Constitutional: Denies Fever
Respiratory: Denies Hemoptysis
Cardiac: Denies Chest Pain
Abdomen/GI: Denies Nausea or Vomiting
Neuro: Reports Dizzy
Physical Exam
-
General: Comfortable
Respiratory: Non Labored Respirations; Negative Accessory Resp Muscle Use
Neuro: AO x 3; Negative Tremors, Slurred Speech or Facial Droop
Psych: Calm; Negative Confused
--- NOTE | 2023-08-11 09:12 | CON.MD ---
Consultation - Medical
-
Referring Provider: Dr. Sheng Marrero
Chief Complaint: Neurologic dysfunction
History of Present Illness: 37-year-old Right handed female with PMH (as below) presented to [facility] on 08/02/2023 with dizziness for approximately 1 month, more often with sitting upright or standing. Exacerbated with sitting straight
up and improved with hunching or slouching. She was seen in urgent care and found to have a right sided bruit and sent to the ED for further evaluation. Has developed right-sided arm and leg numbness and tingling if remains upright after dizziness
starts, symptoms improved with change in position. 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 Seen by vascular who will see her as an
outpatient for follow-up. MRI unremarkable. Incidental left palatine tonsil abnormality-CT angiogram of the neck-There is asymmetric enlargement of the left palatine tonsil in the oropharynx. There is partial effacement of the left vallecula.
patient asymptomatic without dysphagia or oral symptoms. Advised outpatient ENT follow-up for diet visualization. Left facial numbness and numbness to the left anterior third of the tongue concerning for left trigeminal neuralgia symptoms. No
obvious cranial neuropathy on clinical exam. Per Dr. Reddy started pregabalin. Patient set up with Dr. Gandhi of [facility] for further evaluation. Treated for vestibular migraine without improvement. Does note some tinnitus. Patient
needs vestibular physical therapy for retraining for likely benign positional vertigo. Avoid Milton-Hallpike maneuvers given the carotid dissection. Dizziness improved with Valium a bit. Meclizine not helpful.
Is not dizzy with moving eyes, just head. Touching the back of her neck causes dizziness and tingling down her arms. First had this issue when sitting up jose francisco in the car and put right arm on the arm rest. Has had some tingling down in the legs at
times with certain positions.
She denies and physical, emotional, relationship or work related trauma recently.
Past Medical History: Armani thyroiditis, hypothyroidism
Procedure History: Bilateral Knee Arthroscopies, Diastasis Recti and Hernia Repairs, Bilateral Hip Labrum Repairs
Family History: Sister: Thoracic Outlet Syndrome Father: HTN Brother: HTN
Social History:
Functional Level Premorbidly: Independent with all activities
Functional Level Currently:�� Supervision for transfers, supervision ambulating 3 feet with rolling walker. Mod I bed mobility. Supervision to set up for ADLs.
Tobacco: Denies
Alcohol: Occasional
Drug use: Denies
Lives with: and 2 young children
24-hour assistance available: No
Number of floors: 2
# steps to enter: 2
# steps to second floor: Full flight
Potential First floor set up: No
Driving: Yes
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
Allergies:
Allergy/AdvReac Type Severity Reaction Status Date / Time
No Known Allergies Allergy Verified 04/29/21 05:58
Review of Systems:
Constitutional: (x) Normal _
Eye: (x) Normal _
Ear/Nose/Throat: (x) Normal _
Respiratory: (x) Normal _
Cardiovascular: (x) Normal _
Gastrointestinal: (x) Normal _
Genitourinary: (x) Normal _
Musculoskeletal: (x) abNormal _feels better with head forward posture, dizziness and tingling down arm with touching neck muscles.
Integumentary: (x) Normal _
Neurologic: (x) abNormal _dizziness with touching the back of the neck, bending the neck.
Psychiatric: (x) abNormal _ anxious frustrated
Endocrine: (x) Normal _
Hematologic/Lymphatic: (x) Normal _
Allergic/Immunologic: (x) Normal _
Medications:
Active Current Visit Medication List
Category Date Time Status
Acetaminophen [Tylenol] Med 08/02/23 21:20 Active
650 mg PO Q4HPRN PRN
Cetirizine HCl [Zyrtec] Med 08/03/23 08:00 Active
10 mg PO DAILY
Clopidogrel Bisulfate [Plavix] Med 08/03/23 08:00 Active
75 mg PO DAILY
Diazepam [Valium] Med 08/09/23 10:49 Active
2 mg PO Q6HPRN PRN
Flush (0.9% Sodium Chloride) [Flush (Nss)] Med 08/02/23 22:00 Active
See Dose Instructions IV PER PROTOCOL
HydrALAZINE [Apresoline] Med 08/02/23 21:20 Active
5 mg IV Q6HPRN PRN
Levothyroxine [Synthroid] Med 08/03/23 06:00 Active
50 mcg PO SuMoWeTh@0600
Levothyroxine [Synthroid] Med 08/04/23 06:00 Active
75 mcg PO TuFr@0600
Meclizine [Antivert] Med 08/07/23 08:41 Active
25 mg PO DAILYPRN PRN
Melatonin Med 08/08/23 21:34 Active
3 mg PO HS PRN
Sumatriptan Succinate [Imitrex] Med 08/07/23 09:03 Active
50 mg PO ONCE PRN PRN
Vitals:
Temp Pulse Resp BP Pulse Ox
98.3 F 90 17 101/67 97
08/11/23 07:44 08/11/23 07:44 08/11/23 07:44 08/11/23 07:44 08/11/23 07:44
Height 5 ft 5 in
Actual Weight 55.792 kg
Body Mass Index (BMI) 20.5
Physical Exam:
General Appearance/Observation: Well-developed, well-nourished female in no apparent distress.
Pain/Comfort Assessment: Denies
Mood/Affect: Anxious
Integumentary/Operative Site:
�� Pressure Ulcer Evaluation: absent over heels.
Eyes: Conjunctiva/Lids: normal ��� Pupils: pupils equal round and reactive to light and Accommodation
Ears/Nose/Throat: oral mucosa moist,� throat clear.������������ Lips/Teeth/Gums: normal
Neck: bilateral trapezius and cervical muscle spasm with tenderness and dizziness/arm tingling with palpation.
Cardiovascular: Heart: regular, no murmur
Pulses: dorsalis pedis 2+ bilaterally
Respiratory: Respiratory Effort/Chest Expansion: normal ������ Auscultation: Clear to auscultation bilaterally
Gastrointestinal: abdomen not tender, no distension, normal abdominal bowel sounds
Genitourinary: No Honeycutt
Extremities: Edema: None Cyanosis: None Trophic changes: None
Neurology Exam:
Orientation: Alert, Oriented to self, Time, Place
Memory: Intact immediately and at 3 minutes
Higher cortical function
Repetition: Intact
Comprehension: Intact
Two step command: Intact
Naming: Intact
Cranial Nerves:
�� CNII: Pupillary light reflex: Intact��� Visual Field: Intact
�� CN III, IV, : Extraocular muscles: Intact
�� CN V: Facial Sensation at Forehead: Intact, Maxilla: Intact, Mandible: Intact
�� CN VII: Facial movement: Symmetric
�� CN VIII: Hearing: Normal
�� CN IX/X: Speech & swallow: Normal, Position of Uvula: Midline
�� CN XI: Shoulder shrug: Symmetric
�� CN XII: Tongue protrusion: Midline
Sensory:
�� Light touch: Intact in bilateral upper and lower extremities, no extinction to double simultaneous stimulation
Reflexes:
�� Biceps: 2+ bilaterally
�� Brachioradialis: 2+ bilaterally
�� Triceps: 2+ bilaterally
�� Patellar: 2+ bilaterally
�� Achilles: 2+ bilaterally
�� Babinski: Down going bilaterally
�� Clonus: None
�� Heath: Negative bilaterally
Cerebellar: Dysmetria/Ataxia: None
Musculoskeletal:Motor: (Manual muscle scale 0-5)
Muscle SA EF WE EE FF FA HF KE DF EHL PF
Right� 5 5 5 5 5 5 5 5 5 5 5
Left 5 5 5 5 5 5 5 5 5 5 5
Tone: Normal in all extremities
Range of Motion: Passively within normal limits in all extremities
Lab Results
Laboratory Data
08/08/23 04:27
08/08/23 04:27
Total Bilirubin 0.5 mg/dl (0.2-1.3) 08/02/23 15:53
AST 23 U/L (14-36) 08/02/23 15:53
ALT 19 U/L (0-35) 08/02/23 15:53
Alkaline Phosphatase 61 U/L (38-126) 08/02/23 15:53
Total Protein 7.4 g/dl (6.3-8.2) 08/02/23:53
Albumin 4.4 g/dl (3.5-5.0) 08/02/23 15:53
Diagnostic Results: as per HPI
Assessment
37-year-old female with PMH (hypothyroidism, Armani's thyroiditis) with right internal carotid dissection, and dizziness from possible benign positional vertigo causing ADL and ambulatory dysfunction.
Plan
PM&R PT/OT to increase independence with ADLs, improve balance, coordination, endurance, strength, mobility, community reintegration, decreased burden of care on others and family education.
Carotid dissection: plavix, vascular follow-up as outpatient
? benign positional vertigo:
-PRN meclizine not helpful, can stop
-Sumatriptan not helpful
-Valium PRN helpful, consider increasing dose to 5 mg.
-No Milton-Hallpike maneuver with carotid dissection.
Neck spasm: has spasms and tenderness with dizziness and tingling in arms with palpation. Can have myofascial trigger points that can cause some of these symptoms.
-Consider increasing Valium to 5 mg, monitor for sedation.
-Trial bilateral neck lidocaine patches.
-Can trial heat over trapezius muscles.
-To consider early Fibromyalgia
-Normal ESR
- Could trial gabapentin for paresthesias.
FEN: Regular diet
DVT Prophylaxis: mechanical
Safety: Continue to reinforce assistance with all transfers.
Code Status:� Full code
Dispo (date/plan/equipment needs): Home with family care.
Discharge Destination: Would benefit from acute rehab. If not then SNF as only walking 3 feet with dizziness limitation. Does not have support at home. Eventual home health vs outpatient vestibular therapy if able to get to outpatient.
Functional and Medical Goals: Modified Independent with ADL�s, ambulation, transfers
A total of 80 minutes were spent with the patient preparing for the evaluation, obtaining history, performing examination and evaluation, counseling, data review, case management, care coordination, field recorder, and EMR documentation. Extensive
discussion with patient and regarding history, concerns, options for treatments, types of rehab. All questions answered.
Thank you for allowing me to care for your patient. Please contact me with any questions or concerns.
[2023-08-11 10:27] VITALS: BP 129/79; PULSE 88
--- NOTE | 2023-08-11 14:43 | CM ---
Patient continues with dizziness which hinders mobility and activities. Therapy recommending acute rehab. Patient previously declined HH or outpatient PT. Will await medical progression and determine if patient amenable to rehab.
[2023-08-11 15:11] VITALS: BP 121/72
[2023-08-11] MEDS: VALIUM 2 MG PO (19:32)
[2023-08-11 23:00] VITALS: BP 115/81
[2023-08-12] MEDS: SYNTHROID 50 MCG PO (06:03)
[2023-08-12 06:55] VITALS: BP 94/65
[2023-08-12] MEDS: PLAVIX 75 MG PO (08:27)
[2023-08-12] MEDS: ZYRTEC 10 MG PO (08:27)
--- NOTE | 2023-08-12 12:17 | CM ---
Patient seen at bedside. Update provided. patient auth from [facility] via urgent referral line with Lucía [phone] Auth # [id number] valid 08/11 - 02/12. Update provided to Admissions at [place]. Patient going to [facility].
Admissions updated and asking for OT assessment. CM will request and update given to physician. CM will continue to follow for discharge planning needs.
Plan; transfer to [place] at [facility] location and physician updated.
[2023-08-12 12:47] VITALS: BP 114/78; BP 116/78; BP 124/80; PULSE 83; PULSE 85; PULSE 90
[2023-08-12 13:05] VITALS: BP 116/78
[2023-08-12 13:11] VITALS: BP 124/80; PULSE 83
--- NOTE | 2023-08-12 13:46 | W.DS.TRANS ---
DC Summary - Health Companion
-
Discharge Instructions:
Discharge Diagnosis/Procedures Dizziness possible vestibular /BPPV
Diet Regular
Activity As tolerated
Driving Restrictions No driving
Bathing Restrictions None
Other Services PT,OT
Instructions:
Stand-Alone Forms:
Changes to Home Medications: Yes
Discharge Medications:
DC Medications w/original date entered in [employer]
levothyroxine 50 mcg tablet (Synthroid) See Rx Instructions .Route .COMPLEX Thyroid ##0 04/29/21
cetirizine 10 mg tablet (Zyrtec) 10 mg PO DAILY Allergies 09/16/22
multivitamin 1 tab PO DAILY Supplement 09/16/22
cholecalciferol (vitamin D3) 25 mcg (1,000 unit) tablet (Vitamin D3) 25 mcg PO DAILY Supplement 08/02/23
levothyroxine 75 mcg tablet (Synthroid) 75 mcg PO TUFR Thyroid 08/02/23
sumatriptan succinate 25 mg tablet (Imitrex) 0 mg PO .COMPLEX Migraine headache 08/02/23
clopidogrel 75 mg tablet 75 mg PO DAILY #1 tab 08/12/23
cyclobenzaprine 10 mg tablet 5 mg (1/2 x 10 mg) PO Q8HPRN PRN muscle spasms #1 tab 08/12/23
diazepam 2 mg tablet 2 mg PO Q6HPRN PRN dizziness/anxiety #1 tab 08/12/23
lidocaine 4 % topical patch 1 patch topical DAILY PRN muscle spasm /pain #1 ea 08/12/23
meclizine 25 mg tablet 25 mg PO Q8HPRN PRN Dizziness #1 tab 08/12/23
Home Medication Changes
To medication-meclizine as needed, lidocaine patch, Valium as needed, Flexeril as needed, Plavix
Pending Results: No
--- NOTE | 2023-08-12 13:47 | W.PN.HOSP.TC ---
Today's Communication/Plan
-
DC
Assessment / Plan
Assessment / Plan
37y F with PMH significant for Armani's thyroiditis / hypothyroidism who presented to ED complaining of dizziness. Patient states that she has had positional dizziness x about 1 month or so. Her symptoms seem to occur more often when sitting
upright or standing. Symptoms are exacerbated if she tries to 'sit up straight' and seem improved with hunching or slouching. Patient has tried to increase her fluid intake but has noted no significant change in her symptoms. She has not had an
episodes of syncope or LOC. She noted on DOA that she elicited dizzy sensations simply by moving her arms (either one). This was new and patient presented to an Urgent Care for evaluation. Bruit was appreciated on the R and patient was sent to the
ED for further evaluation.
Patient stated that she developed numbness and tingling along her R side - including the arm and leg - if she remains upright after the dizziness has started. These symptoms too can be alleviated by changes in position.
She denies any focal weakness. No vision changes, headache or speech deficits. Patient denies any neck pain.
persistent non specific dizziness in setting of right ICA dissection - no evidence of acute stroke on MRI brain. Not vertiginous and no tinnitus--No ataxia- dizziness predates the dissection per pt--cont plavix--apprec vascular and neuro--Pt had
right neck pain 08/04 - stat CT angio neck showed Right neck dissection which is no worse nor any occlusion-- repeat MRI brain and C-spine w/wo contrast without significant findings--objectively some what improved with valium use which would
continue. Continue with PT evaluations.
Her dizziness is non specific; cant rule out BPPV/Vestibular . CW symptomatic tx and follow with [facility] ( see neurology note). No vestibular tx due to ICA dissection.
Appreciate physiatry input-acute rehab recommended-patient approved for acute rehab today-discharge today.
Left facial numbness and numbness to the left anterior third of the tongue concerning for left trigeminal neuralgia symptoms. No obvious cranial neuropathy on clinical exam. None now
Hypothyroidism - Stable--TFTs normal--Continue current T4 replacement--There is heterogeneous attenuation and enhancement of the thyroid gland On CT neck- TSH normal. Follow with endo.
Incidental left palatine tonsil abnormality--CT angiogram of the neck--There is asymmetric enlargement of the left palatine tonsil in the oropharynx. There is partial effacement of the left vallecula. patient asymptomatic without dysphagia or oral
symptoms. Interestingly repeat CT Angio yesterday says vallecula ok .Advised outpatient ENT follow-up for diet visualization.
DVT Prophylaxis: SCDs
Code Status: Full
DW Pt about dc plan -she is in agreement.
DW CM
Medically stable for DC
DC time 35min
Anticipated Discharge: Today
Subjective/Interval History
-
Date of Service: August 12, 2023
Patient with persistent dizziness. She feels dizzy sitting, minimal movement, and with walking. She feels imbalance when walking. She is able to perform with physical therapy and Occupational Therapy. She is able to use bathroom with assistance.
No new symptoms.
Objective Data
-
Vital Signs:
Vital Signs
Temp Pulse Resp BP Pulse Ox
98.2 F 72 17 94/65 98
08/12/23 06:55 08/12/23 06:55 08/12/23 06:55 08/12/23 06:55 08/12/23 06:55
I&O
08/11/23 08/12/23 08/13/23
06:59 06:59 06:59
Intake Total 680 / 680 1530 / 1530
Balance 680 / 680 1530 / 1530
Review of Systems
-
Neuro: Denies Headache, Weakness, Numbness or Tremors
Physical Exam
-
General: Comfortable
Respiratory: Non Labored Respirations; Negative Accessory Resp Muscle Use
Neuro: AO x 3 and No Motor Deficits; Negative Tremors, Slurred Speech or Facial Droop
Psych: Calm; Negative Confused or Agitated
--- NOTE | 2023-08-21 08:23 | CM ---
Emailed to patient work note from physician at patient request. Per phone call of 08/20/23.
== END 2023-08-12 15:58 | DRG 301 ==
LOC: 2 SOUTH 20:37
PROVIDERS: Internal Medicine; Physician Assistant; ADMITTING PHYSICIAN Hospitalist; ATTENDING PHYSICIAN Internal Medicine; CONSULT PHYSICIAN Physical Medicine & Rehabilitation; CONSULT PHYSICIAN Psychiatry & Neurology Neurology; EMERGENCY PHYSICIAN Student in an Organized Health Care Education/Training Program; FAMILY PHYSICIAN Nurse Practitioner Family; OTHER PHYSICIAN Surgery Vascular Surgery
DX: I77.71 Dissection of carotid artery (principal); Z79.02 Long term (current) use of antithrombotics/antiplatelets; E06.3 Autoimmune thyroiditis; G50.0 Trigeminal neuralgia
CPT/HCPCS: 70496; 70498; 70553; 72156; 80048; 80053; 80061; 81003; 82607; 82728; 82746; 82962; 84443; 84703; 85025; 85027; 85652; 93005; 93880; 96374; 96375; 97116; 97162; 97166; 97168; 97530; 99285; A9575; J1240; Q9967

== ENCOUNTER 2023-09-20 19:21 | Emergency (ER) | payer OTHER, SELFPAY ==
[2023-09-20 19:24] VITALS: BP 124/90
--- NOTE | 2023-09-20 19:50 | ED.GENMED ---
History of Present Illness
General
Chief Complaint: Cardiac Symptoms
Time Seen by Provider: 09/20/23 19:50
History of Present Illness
History of Present Illness:
HPI: The patient presents with worsening now nearly constant right upper extremity paresthesias. When she was here 6 weeks ago with a right ICA dissection she intermittently had some right upper extremity paresthesias. She also had vertigo at that
time and has been trying to wean herself down from the Valium. She feels somewhat tremulous now and went from 4 mg of Valium to 3 mg of Valium recently. She has ongoing vertigo
EXAM:
GENERAL: Well appearing in no distress
HEENT: Moist oral mucosa
CARDIOVASCULAR: No murmurs, normal heart rate, regular rhythm, No chest wall tenderness
PULMONARY: No respiratory distress, breath sounds are clear and equal
ABDOMEN: Soft with no peritoneal signs, no tenderness
NEUROLOGIC: Excellent strength all extremities, no coordination deficits, normal finger-nose testing, questionable if any sensory deficit to the right upper extremity, excellent radial, median, and ulnar nerve function to the right upper extremity,
appears slightly tremulous
PSYCHIATRIC: Appropriate mental status, normal insight and judgement
EXTREMITIES: Nontender, no edema, moves all extremities equally
SKIN: No rash, no lesions
TIME OF INITIAL ENCOUNTER: 8 PM
NUMBER AND COMPLEXITY OF PROBLEMS ADDRESSED AT THE ENCOUNTER
� Chronic conditions affecting care: Recent right ICA dissection, currently taking Valium for vertigo
� Acute Exacerbation and/or Progression of Chronic Illness: This is an acute but worsening problem
� Differential Diagnosis includes: Worsening dissection, CVA, benzo withdrawal, cervical spine disease
AMOUNT AND/OR COMPLEXITY OF DATA TO BE REVIEWED AND ANALYZED
� I performed an independent evaluation of and my interpretation is:
EKG: Sinus 86, normal axis, nonspecific ST abnormality, no significant change from 08/08/2023
CT: CT imaging personally viewed�no sign of dissection or other acute abnormality
X-rays:
Laboratory Studies: CBC, chemistries, troponin unremarkable
Other:
� Review of other/old records: I reviewed last discharge summary from 6 weeks ago. At that time she came into the emergency department with dizziness and was found to have a nontraumatic dissection in the proximal to mid right
ICA. Vascular surgery recommended Plavix. Of note, dissection not seen on ultrasound on 08/03/2023. She was also given Valium with some improvement and was discharged to acute rehab. I also reviewed MRI report which does show some moderate disc
disease at C5-6 and C6-7.
� Clinical information was obtained by an independent historian: I spoke to the at bedside
� Prescriptions/Medications Considered but not given:
� Further testing considered but not performed:
RISK OF COMPLICATIONS AND/OR MORBIDITY OR MORTALITY OF PATIENT MANAGEMENT
� Social determinants of health affecting care: Lives at home
� Discussion with other providers: Discussed case with Dr. Van suggested that she could try amitriptyline. See below
� Escalation of care including admission/observation vs risk of discharge considered: Given patient's history, repeat CTA was obtained�no evidence of dissection currently. I also discussed with Dr. Rojas who has no further
recommendations but does recommend that she should continue the Plavix for now. I have also given her the contact information for local visual merchandising specialist given the abnormality seen on MRI.
Past History
Past History
ED Past Medical History: Hypothyroidism
ED Past Surgical History: Orthopedic
Social History
Tobacco: Non-smoker
Alcohol: None
Drug: None
Personal:
Family History
Family History: Other (reviewed and non-contributory)
Phy Exam
Physical Exam
Physical Exam:
See HPI
Course
Orders/Labs/Results
Orders:
Orders
09/20/23 19:28
Electrocardiogram (*1) Urgent
Reason for Study: Other
Other Reason for Exam: EXTREMITY TINGLING
09/20/23 19:29
EKG- Treatment ONCE
09/20/23 20:09
CT Head & Neck Angio W/wo IV Urgent
Comment:
Reason For Exam: RUE paresthesias, recent R ICA dissection
09/20/23 20:15
CMP [Comprehensive Metabolic Panel] Urgent
Complete Blood Count/With Diff Urgent
Troponin I Urgent
Abnormal Lab Results
09/20/23
20:15
Hct 36.9 L %
(37.0-47.0)
MPV 12.3 H fL
(7.4-10.4)
Calcium 10.3 H mg/dl
(8.4-10.2)
09/20/23 20:15
09/20/23 20:15
Vital Signs
Initial and Last Documented VS:
Initial Vital Signs
Temp Pulse Resp BP Pulse Ox
98.8 F 90 24 124/90 100
09/20/23 19:24 09/20/23 19:24 09/20/23 19:24 09/20/23 19:24 09/20/23 19:24
Last Documented Vital Signs
Temp Pulse Resp BP Pulse Ox
98.8 F 95 17 124/90 99
09/20/23 19:24 09/20/23 20:45 09/20/23 20:45 09/20/23 19:24 09/20/23 21:35
*Critical Care Note
Total Time (30-74mins, 75-104mins- exclusive of procedures): Not Applicable
ED Attending Note
-
Portions of this chart may have been created with voice recognition software.� Occasional wrong word or��sound alike� substitutions may have occurred due to the inherent limitations of voice recognition software.
Discharge Plan
Departure
Patient Disposition: Home (Routine Discharge)
Date of Disposition: 09/20/23
Time of Disposition: 22:34
Patient with high blood pressure during this ER visit?: Yes
Discharge Problem:
Cervical radiculopathy
Prescriptions:
New
amitriptyline 10 mg tablet
10 mg PO HS Qty: 30 0RF
No Action
levothyroxine [Synthroid] 50 mcg Tablet
See Rx Instructions .ROUTE .COMPLEX Qty: 0
Rx Instructions:
50 mcg orally
Thursday, Thursday, Thursday, Thursday,
multivitamin Tablet
1 tab PO DAILY
cetirizine [Zyrtec] 10 mg Tablet
10 mg PO DAILY
sumatriptan succinate [Imitrex] 25 mg Tablet
0 mg PO .COMPLEX
Rx Instructions:
take 1 tab at onset of headache; if no relief may repeat 1 tab after at least 2 hrs; max = 4 tabs/24 hr
levothyroxine [Synthroid] 75 mcg Tablet
75 mcg PO TUFR
Patient Comments:
new dose, slowly increased to 75mcg daily. and stop 50mcg when dizzness stops
cholecalciferol (vitamin D3) [Vitamin D3] 25 mcg (1,000 unit) Tablet
25 mcg PO DAILY
cyclobenzaprine 10 mg Tablet
5 mg PO Q8HPRN PRN (Reason: muscle spasms) Qty: 1 0RF
clopidogrel 75 mg Tablet
75 mg PO DAILY Qty: 1 0RF
meclizine 25 mg Tablet
25 mg PO Q8HPRN PRN (Reason: Dizziness) Qty: 1 0RF
diazepam 2 mg Tablet
2 mg PO Q6HPRN PRN (Reason: dizziness/anxiety) Qty: 1 0RF
lidocaine 4 % adhesive patch,medicated
1 patch topical DAILY PRN (Reason: muscle spasm /pain ) Qty: 1 0RF
Rx Instructions:
to her neck
Referrals:
Delphine Harry CRNP [Family Provider] -
Ana Calhoun DO [Active] - Follow up in 1 week
Connor Reddy MD [Active] - Follow up in 1 week
Epi Lam MD [Active] - Follow up in 1 week
Activity Restrictions/Additional Instructions:
CTA tonight shows no evidence of dissection to any of the vessels of the head neck. I reviewed your MRI report from August 06 which showed:
1. Moderate-sized left central disc herniation at C6/C7 causing minimal spinal cord compression.
2. Small to moderate-sized central disc herniation at C5/C6 causing minimal spinal cord compression.
For this, you could consider following up with a visual merchandising specialist such as Dr. Lam or Dr. Zazuetaqi
I also spoke to Dr. Reddy and he suggested that you could try amitriptyline. I sent a prescription for this to your pharmacy. I also recommend that you follow-up with your primary care doctor as well.
Interventions
Interventions:
*Risk Screen - Suicide Last Done: 09/20/23 19:24
*General Assessment Last Done: 09/20/23 20:08
*Neglect/Abuse Screening Last Done: 09/20/23 19:24
ED- Fall Risk Assessment Last Done: 09/20/23 20:08
ED-Skin Assessment Last Done: 09/20/23 20:08
ED-Peripheral Vascular Assessment Last Done: 09/20/23 20:08
ED- Pulmonary Assessment Last Done: 09/20/23 20:08
ED-Musculoskeletal Assessment Last Done: 09/20/23 20:08
ED- Cardiac Assessment Last Done: 09/20/23 20:08
Discharge Date and Time
Print Language: FINNISH
[2023-09-20 20:08] VITALS: BMI 20.9
[2023-09-20 20:22] LABS: % Basophils 0.4 % (0-2); % Eosinophils 0.9 % (0-6); % Immature Granulocytes 0.2 % (0-0.5); % Lymphocytes 32.5 % (20.5-51.1); % Monocytes 6.7 % (1.7-9.3); % Neutrophils 59.3 % (42.2-75.2); Absolute Eosinophils 0.1 10^3/uL (0-0.7); Absolute Lymphocytes 1.7 10^3/uL (1.2-3.4); Absolute Monocytes 0.4 10^3/uL (0.1-0.6); Absolute Neutrophils 3.2 10^3/uL (1.4-6.5); Hematocrit 36.9 % (37.0-47.0); Hemoglobin 13.3 g/dL (12.0-16.0); Mean Corpuscular Hgb 29.3 pg (27.0-31.0); Mean Corpuscular Volume 81.3 fL (81.0-99.0); Mean Platelet Volume 12.3 fL (7.4-10.4); Nucleated Red Blood Cells % 0 %; Platelet Count 201 10^3/uL (130-400); Red Blood Cell Count 4.54 10^6/uL (4.20-5.40); Red Cell Dist. Width 13.6 % (11.5-14.5); White Blood Cell Count 5.4 10^3/uL (4.8-10.8)
[2023-09-20 20:37] LABS: ALT (SGPT) 19 U/L (0-35); AST (SGOT) 24 U/L (14-36); Alkaline Phosphatase 70 U/L (38-126); Blood Urea Nitrogen 11 mg/dl (7-17); Calcium 10.3 mg/dl (8.4-10.2); Carbon Dioxide 22 mmol/L (22-30); Chloride 106 mmol/L (98-107); Estimated Creatinine Clearance 99 ml/min; Glucose 91 mg/dl (70-99); Potassium 3.7 mmol/L (3.5-5.1); Sodium 140 mmol/L (135-145); Total Bilirubin 0.7 mg/dl (0.2-1.3); Total Protein 8.1 g/dl (6.3-8.2); eGFR > 60.00
[2023-09-20 20:47] LABS: Troponin I < 0.012 ng/ml
[2023-09-20 22:00] VITALS: BP 109/79
[2023-09-20 23:00] VITALS: BP 101/78
== END 2023-09-20 23:12 | disposition home or self-care (01) ==
LOC: EMR 19:21
PROVIDERS: Emergency Medicine; EMERGENCY PHYSICIAN Emergency Medicine; FAMILY PHYSICIAN Nurse Practitioner Family
DX: M50.122 Cervical disc disorder at C5-C6 level with radiculopathy (principal); E03.9 Hypothyroidism, unspecified
CPT/HCPCS: 99284; 70496; 70498; 80053; 84484; 85025; 93005; Q9967

== ENCOUNTER → 2023-10-09 09:03 | Outpatient (REF) | payer OTHER, SELFPAY | LOC: EMG 09:03 | PROVIDERS: ATTENDING PHYSICIAN Orthopaedic Surgery; FAMILY PHYSICIAN Nurse Practitioner Family; REFERRING PHYSICIAN Internal Medicine | DX: R20.0 Anesthesia of skin (principal); R20.2 Paresthesia of skin | CPT/HCPCS: 95886; 95909 ==

== ENCOUNTER 2023-10-12 12:58 | Emergency (ER) | payer OTHER, SELFPAY ==
[2023-10-12 13:06] VITALS: BP 140/90
[2023-10-12 13:42] VITALS: BMI 20.7
[2023-10-12 14:00] VITALS: BP 111/82
[2023-10-12 14:10] LABS: % Basophils 0.6 % (0-2); % Eosinophils 1.2 % (0-6); % Immature Granulocytes 0.4 % (0-0.5); % Monocytes 6.1 % (1.7-9.3); % Neutrophils 63.7 % (42.2-75.2); Absolute Eosinophils 0.1 10^3/uL (0-0.7); Absolute Lymphocytes 1.4 10^3/uL (1.2-3.4); Absolute Monocytes 0.3 10^3/uL (0.1-0.6); Absolute Neutrophils 3.1 10^3/uL (1.4-6.5); Hematocrit 37.2 % (37.0-47.0); Hemoglobin 13.4 g/dL (12.0-16.0); Mean Corpuscular Hgb 29.1 pg (27.0-31.0); Mean Corpuscular Volume 80.7 fL (81.0-99.0); Mean Platelet Volume 12.5 fL (7.4-10.4); Nucleated Red Blood Cells % 0 %; Platelet Count 227 10^3/uL (130-400); Red Blood Cell Count 4.61 10^6/uL (4.20-5.40); Red Cell Dist. Width 13.6 % (11.5-14.5); White Blood Cell Count 4.9 10^3/uL (4.8-10.8)
[2023-10-12 14:38] LABS: Troponin I < 0.012 ng/ml
[2023-10-12 14:43] LABS: Blood Urea Nitrogen 13 mg/dl (7-17); Calcium 9.9 mg/dl (8.4-10.2); Carbon Dioxide 23 mmol/L (22-30); Chloride 106 mmol/L (98-107); Estimated Creatinine Clearance 98 ml/min; Glucose 83 mg/dl (70-99); Sodium 138 mmol/L (135-145); eGFR > 60.00
--- NOTE | 2023-10-12 15:23 | ED.GENMED ---
History of Present Illness
General
Chief Complaint: Chest Pain
Source: patient
Exam Limitations: none
Time Seen by Provider: 10/12/23 13:34
Nursing documentation reviewed up to this point in time: agreed with
History of Present Illness
History of Present Illness:
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
today feeling somewhat lethargic and lightheaded since yesterday as well. Also has some intermittent palpitations. Denies nausea vomiting or diaphoresis. No radiation to her back no focal numbness or weakness.
Past History
Past History
ED Past Medical History: Hypothyroidism
ED Past Surgical History: Orthopedic
Social History
Tobacco: Non-smoker
Alcohol: None
Drug: None
Personal:
Family History
Family History: Other (reviewed and non-contributory)
Review of Systems
Review of Systems
Allergies reviewed?: Yes
All Other Systems: ROS reviewed and negative except as documented in HPI and ROS
Phy Exam
Physical Exam
Physical Exam:
GENERAL: Alert , in no apparent distress
EYE: pupils equal and reactive
NECK: Supple, no significant adenopathy.
ENT: o/p clr, mmm.
CARDIAC: Regular rate and rhythm .
LUNGS: Clear breath sounds bilaterally, no acute respiratory distress, no wheezes/rales/rhonchi
ABDOMEN: Soft, without focal tenderness, no r/g, no cvat
NEUROLOGICAL: Alert and oriented, no focal neuro deficits
SKIN: Warm and dry, skin intact.
MUSCULOSKELETAL: No edema, well perfused.
PSYCH: Normal and appropriate interaction.
Scores
Heart Score for Chest Pain Patients
STEMI patient?: No
History: Slightly or Non-Suspicious
ECG: Normal
Age: </= 45 years
Risk Factors: 1 or 2 Risk Factors
Troponin: </= Normal Limit
Heart Score for Chest Pain Patients: 1
Heart Score Risk: 2.5% MACE over next 6 weeks
Course
Orders/Labs/Results
Orders:
Orders
10/12/23 12:59
ECG [Electrocardiogram (*1)] Urgent
Reason for Study: Chest Pain
EKG- Treatment ONCE
10/12/23 14:02
Basic Metabolic Panel Urgent
Complete Blood Count/With Diff Urgent
HCG, Serum Qualitative Screen Urgent
Comment: HCG SERUM QUAL ADDED ON BY FLOOR 2:50PM 10-12-23
Troponin I Urgent
10/12/23 14:42
CT Chest/abd/pelvis Angio W/wo Urgent
Comment:
Reason For Exam: hx of carotid dissection, CP dizziness today
10/12/23 14:52
Add On- LAB Urgent
Tests Added?: hcg serum qual
Abnormal Lab Results
10/12/23
14:02
MCV 80.7 L fL
(81.0-99.0)
MPV 12.5 H fL
(7.4-10.4)
10/12/23 14:02
10/12/23 14:02
Vital Signs
Initial and Last Documented VS:
Initial Vital Signs
Temp Pulse Resp BP Pulse Ox
98.3 F 90 16 140/90 100
10/12/23 13:06 10/12/23 13:06 10/12/23 13:06 10/12/23 13:06 10/12/23 13:06
Last Documented Vital Signs
Temp Pulse Resp BP Pulse Ox
98.3 F 83 10 111/82 98
10/12/23 13:06 10/12/23 14:45 10/12/23 14:45 10/12/23 14:00 10/12/23 14:45
MDM/Problems Addressed
MDM/Problems Addressed:
37-year-old female presenting to the emergency department today with concerns of chest discomfort radiation to her jaw associated fatigue and lightheadedness. Also had some palpitations yesterday and today. Upon arrival vital signs are normal
patient in no obvious distress normal heart and lung examination. Labs obtained without acute abnormalities EKG without emergent findings. Considering her recent history of dissection plan for CT scan for assessment of the aorta. Here workup
without emergent findings. CT angiogram without dissection or PE. No acute abnormalities on scan. Labs unremarkable EKG normal. No evidence of emergent pathology at this time advised for close outpatient follow-up. Return precautions given.
*Critical Care Note
Total Time (30-74mins, 75-104mins- exclusive of procedures): Not Applicable
ED Attending Note
-
Portions of this chart may have been created with voice recognition software.� Occasional wrong word or��sound alike� substitutions may have occurred due to the inherent limitations of voice recognition software.
Discharge Plan
Departure
Patient Disposition: Home (Routine Discharge)
Date of Disposition: 10/12/23
Time of Disposition: 16:52
Patient with high blood pressure during this ER visit?: No
Condition: Good
Covid-19: Not Applicable
Discharge Problem:
Chest pain
Instructions: Chest Pain CBC Follow Up
Prescriptions:
No Action
levothyroxine [Synthroid] 50 mcg Tablet
See Rx Instructions .ROUTE .COMPLEX Qty: 0
Rx Instructions:
50 mcg orally
Thursday, Thursday, Thursday, Thursday,
multivitamin Tablet
1 tab PO DAILY
cetirizine [Zyrtec] 10 mg Tablet
10 mg PO DAILY
sumatriptan succinate [Imitrex] 25 mg Tablet
0 mg PO .COMPLEX
Rx Instructions:
take 1 tab at onset of headache; if no relief may repeat 1 tab after at least 2 hrs; max = 4 tabs/24 hr
levothyroxine [Synthroid] 75 mcg Tablet
75 mcg PO TUFR
Patient Comments:
new dose, slowly increased to 75mcg daily. and stop 50mcg when dizzness stops
cholecalciferol (vitamin D3) [Vitamin D3] 25 mcg (1,000 unit) Tablet
25 mcg PO DAILY
cyclobenzaprine 10 mg Tablet
5 mg PO Q8HPRN PRN (Reason: muscle spasms) Qty: 1 0RF
clopidogrel 75 mg Tablet
75 mg PO DAILY Qty: 1 0RF
meclizine 25 mg Tablet
25 mg PO Q8HPRN PRN (Reason: Dizziness) Qty: 1 0RF
diazepam 2 mg Tablet
2 mg PO Q6HPRN PRN (Reason: dizziness/anxiety) Qty: 1 0RF
lidocaine 4 % adhesive patch,medicated
1 patch topical DAILY PRN (Reason: muscle spasm /pain ) Qty: 1 0RF
Rx Instructions:
to her neck
amitriptyline 10 mg tablet
10 mg PO HS Qty: 30 0RF
Referrals:
Delphine Harry CRNP [Family Provider] -
Activity Restrictions/Additional Instructions:
You came to the emergency department today with concerns of chest pain palpitations lightheadedness. He had a reassuring assessment. Please follow closely with cardiology. Return to the emergency department for any worsening, new or concerning
symptoms.
Interventions
Interventions:
*Risk Screen - Suicide Last Done: 10/12/23 13:50
*General Assessment Last Done: 10/12/23 13:06
*Neglect/Abuse Screening Last Done: 10/12/23 13:50
ED- Fall Risk Assessment Last Done: 10/12/23 13:43
*ED COVID-19 Vaccine History Last Done: 10/12/23 13:11
ED- Cardiac Assessment Last Done: 10/12/23 13:43
Discharge Date and Time
Print Language: AFGHAN
[2023-10-12 15:31] VITALS: BP 119/80
[2023-10-12 16:00] VITALS: BP 108/80
[2023-10-12 16:05] LABS: HCG, Serum Qualitative Screen Negative
[2023-10-12 16:31] VITALS: BP 125/84
[2023-10-12 16:34] VITALS: BP 116/89
[2023-10-12] MEDS: NSS 1000 IV (17:03)
== END 2023-10-12 18:05 | disposition home or self-care (01) ==
LOC: EMR 12:58
PROVIDERS: Emergency Medicine; EMERGENCY PHYSICIAN Emergency Medicine; FAMILY PHYSICIAN Nurse Practitioner Family
DX: R07.89 Other chest pain (principal); R42 Dizziness and giddiness; R53.83 Other fatigue; R00.2 Palpitations; R68.84 Jaw pain; E03.9 Hypothyroidism, unspecified; G43.909 Migraine, unspecified, not intractable, without status migrainosus
CPT/HCPCS: 99285; 96360; 71275; 74174; 80048; 84484; 84703; 85025; 93005; Q9967

== ENCOUNTER → 2023-10-19 15:01 | Outpatient (REF) | payer OTHER, SELFPAY | LOC: RAD 15:01 | PROVIDERS: ATTENDING PHYSICIAN Surgery Vascular Surgery | DX: I77.1 Stricture of artery (principal); R20.0 Anesthesia of skin | CPT/HCPCS: 93880 ==

== ENCOUNTER → 2023-10-20 14:49 | Outpatient (REF) | payer OTHER, SELFPAY | LOC: RCS 14:49 | PROVIDERS: ATTENDING PHYSICIAN Internal Medicine Cardiovascular Disease; FAMILY PHYSICIAN Nurse Practitioner Family | DX: R07.9 Chest pain, unspecified (principal) | CPT/HCPCS: 93017 ==

== ENCOUNTER → 2023-10-27 10:22 | Outpatient (REF) | payer OTHER, SELFPAY | LOC: EMG 10:22 | PROVIDERS: ATTENDING PHYSICIAN Internal Medicine; FAMILY PHYSICIAN Nurse Practitioner Family | DX: R20.0 Anesthesia of skin (principal); R20.2 Paresthesia of skin | CPT/HCPCS: 95886; 95909 ==

== ENCOUNTER 2023-11-14 17:01 | Emergency (ER) | payer OTHER, SELFPAY ==
[2023-11-14 17:07] VITALS: BP 141/100
[2023-11-14 17:42] LABS: % Basophils 0.4 % (0-2); % Eosinophils 0.6 % (0-6); % Immature Granulocytes 0.3 % (0-0.5); % Lymphocytes 27.3 % (20.5-51.1); % Monocytes 7.1 % (1.7-9.3); % Neutrophils 64.3 % (42.2-75.2); Absolute Lymphocytes 1.9 10^3/uL (1.2-3.4); Absolute Monocytes 0.5 10^3/uL (0.1-0.6); Absolute Neutrophils 4.5 10^3/uL (1.4-6.5); Hematocrit 34.6 % (37.0-47.0); Hemoglobin 12.3 g/dL (12.0-16.0); Mean Corp Hgb Conc. 35.5 g/dL (33.0-37.0); Mean Corpuscular Hgb 29.3 pg (27.0-31.0); Mean Corpuscular Volume 82.4 fL (81.0-99.0); Mean Platelet Volume 12.2 fL (7.4-10.4); Nucleated Red Blood Cells % 0 %; Platelet Count 217 10^3/uL (130-400); Red Cell Dist. Width 13.9 % (11.5-14.5); White Blood Cell Count 6.9 10^3/uL (4.8-10.8)
[2023-11-14 17:56] LABS: HCG, Serum Qualitative Screen Negative
[2023-11-14 18:00] LABS: ALT (SGPT) 15 U/L (0-35); AST (SGOT) 18 U/L (14-36); Albumin 4.7 g/dl (3.5-5.0); Alkaline Phosphatase 53 U/L (38-126); Blood Urea Nitrogen 14 mg/dl (7-17); Carbon Dioxide 27 mmol/L (22-30); Chloride 103 mmol/L (98-107); Estimated Creatinine Clearance 95 ml/min; Glucose 103 mg/dl (70-99); Potassium 4.8 mmol/L (3.5-5.1); Sodium 141 mmol/L (135-145); Total Bilirubin 0.8 mg/dl (0.2-1.3); Total Protein 7.3 g/dl (6.3-8.2); eGFR > 60.00
--- NOTE | 2023-11-14 18:22 | ED.GENMED ---
History of Present Illness
<Yannick Halmin PA-C - Last Filed: 11/14/23 21:24>
General
Chief Complaint: Weakness
Source: patient
Exam Limitations: none
Time Seen by Provider: 11/14/23 17:56
History of Present Illness
History of Present Illness:
37-year-old female presents with persistent dizziness neck pain and headache. She also notes generalized fatigue and decreased appetite. She has a history of internal carotid artery dissection on the right side. She stopped Plavix 1 week ago.
She has been followed by vascular surgery as well as neurology. She denies fevers. No new injury. No chest pain or shortness of breath. She describes her dizziness as positional that gets worse if she turns her head quickly when she is standing.
There is also occasional lightheadedness. She had a Holter monitor at the beginning of this month which was negative. She has been tested for Lyme in the past which initially was equivocal but a repeat test of infectious disease was negative.
Either way she finished 3 weeks worth of antibiotics for this at the time. No rash. She also notes some numbness to the right leg. She describes it as a falling asleep sensation when she tries to walk.
Past History
<Yannick Hamlin PA-C - Last Filed: 11/14/23 21:24>
Past History
ED Past Medical History: Hypothyroidism
ED Past Surgical History: Orthopedic
Social History
Tobacco: Non-smoker
Alcohol: None
Drug: None
Personal:
Family History
Family History: Other (reviewed and non-contributory)
Phy Exam
<Yannick Hamlin PA-C - Last Filed: 11/14/23 21:24>
Physical Exam
Physical Exam:
General: Well-appearing female no acute respiratory distress
HEENT: Normocephalic atraumatic
Heart: Regular rate and rhythm no murmurs
Lungs: Clear no wheeze
Neurologic exam: Alert and oriented x 3 no facial asymmetry pupils equal round reactive to light no drift on exam finger-nose [id number] intact. Slightly increased dizziness with patient laying supine and turning the head to the right into the
left. No obvious nystagmus.
Vascular: 2+ dorsalis pedis pulse bilateral feet
Skin is warm no rash
Course
<Yannick Hamlin PA-C - Last Filed: 11/14/23 21:24>
Orders/Labs/Results
Orders:
Orders
11/14/23 17:24
EKG [Electrocardiogram (*1)] Urgent
Reason for Study: Vertigo / Dizzy
Test Result ONCE
11/14/23 17:25
EKG- Treatment ONCE
11/14/23 17:35
CBC/With Diff [Complete Blood Count/With Diff] Urgent
CMP [Comprehensive Metabolic Panel] Urgent
HCG, Serum Qualitative Screen Urgent
11/14/23 18:19
0.9% Sodium Chloride 1000 ml [Nss] 1,000 ml IV BOLUS
11/14/23 18:22
CT Head & Neck Angio W/wo IV Urgent
Reason For Exam: dizzy, neck pain, history of carotid dissection
Abnormal Lab Results
11/14/23
17:35
Hct 34.6 L %
(37.0-47.0)
MPV 12.2 H fL
(7.4-10.4)
Glucose 103 H mg/dl
(70-99)
11/14/23 17:35
11/14/23 17:35
Vital Signs
Initial and Last Documented VS:
Initial Vital Signs
Temp Pulse Resp BP Pulse Ox
98.3 F 106 16 141/100 98
11/14/23 17:07 11/14/23 17:07 11/14/23 17:07 11/14/23 17:07 11/14/23 17:07
Last Documented Vital Signs
Temp Pulse Resp BP Pulse Ox
98.3 F 75 10 134/92 99
11/14/23 17:07 11/14/23 21:00 11/14/23 21:00 11/14/23 21:00 11/14/23 21:00
<Lobo Wallace, DO - Last Filed: 11/14/23 21:04>
Orders/Labs/Results
Orders:
Orders
11/14/23 17:24
EKG [Electrocardiogram (*1)] Urgent
Reason for Study: Vertigo / Dizzy
Test Result ONCE
11/14/23 17:25
EKG- Treatment ONCE
11/14/23 17:35
CBC/With Diff [Complete Blood Count/With Diff] Urgent
CMP [Comprehensive Metabolic Panel] Urgent
HCG, Serum Qualitative Screen Urgent
11/14/23 18:19
0.9% Sodium Chloride 1000 ml [Nss] 1,000 ml IV BOLUS
11/14/23 18:22
CT Head & Neck Angio W/wo IV Urgent
Reason For Exam: dizzy, neck pain, history of carotid dissection
Abnormal Lab Results
11/14/23
17:35
Hct 34.6 L %
(37.0-47.0)
MPV 12.2 H fL
(7.4-10.4)
Glucose 103 H mg/dl
(70-99)
11/14/23 17:35
11/14/23 17:35
Vital Signs
Initial and Last Documented VS:
Initial Vital Signs
Temp Pulse Resp BP Pulse Ox
98.3 F 106 16 141/100 98
11/14/23 17:07 11/14/23 17:07 11/14/23 17:07 11/14/23 17:07 11/14/23 17:07
Last Documented Vital Signs
Temp Pulse Resp BP Pulse Ox
98.3 F 75 10 134/92 99
11/14/23 17:07 11/14/23 21:00 11/14/23 21:00 11/14/23 21:00 11/14/23 21:00
<Yannick Hamlin PA-C - Last Filed: 11/14/23 21:24>
MDM/Problems Addressed
Differential Diagnosis Includes:
Patient with overwhelming fatigue decreased appetite and persistent and perhaps increased dizziness with neck discomfort.
Differential is large. She does have a history of dissection. Question recurrent dissection. Currently she is off of the Plavix. Question dehydration versus electrolyte abnormality. Her thyroid has been checked.
Will hydrate. EKG was performed through triage which I have seen and reviewed and shows normal sinus rhythm without ischemic changes
<Yannick Hamlin PA-C - Last Filed: 11/14/23 21:24>
*Critical Care Note
Total Time (30-74mins, 75-104mins- exclusive of procedures): Not Applicable
<Yannick Hamlin PA-C - Last Filed: 11/14/23 21:24>
Update Note
Update Note:
Patient reworked up here had CT angio of the head and neck secondary to similarity of symptoms she had in July. This was normal today. She was hydrated. Labs reviewed without significant finding. Etiology of patient's symptoms somewhat unclear
but at this time no indication of any emergent issues going on. Recommended continued hydration at home. Have her follow-up with her treating physicians. Discussed with emergency room attending who saw the patient as well
ED Attending Note
<Yannick Hamlin PA-C - Last Filed: 11/14/23 21:24>
-
Portions of this chart may have been created with voice recognition software.� Occasional wrong word or��sound alike� substitutions may have occurred due to the inherent limitations of voice recognition software.
<Lobo Wallace DO - Last Filed: 11/14/23 21:04>
ED Attending Note
Patient seen and examined by attending physician: Yes
I performed the substantive portion of visit, reviewed & personally made and approve the management plan that is documented in note by myself or BONG.: Yes
ED Attending Note:
I have seen and evaluated the patient with a [id number] encounter. I have spoken to the advance practicer provider and involved in the medical history, the physical exam, medical decision making.
Evaluation and management service: agree unless noted differently below.
Results interpretation: agree unless noted differently below.
Focused HPI: 37-year-old female presenting with multiple complaints. She feels fatigued, nauseous and intermittently dizzy. She is unsure if this is related to prior history of carotid artery dissection. She was recently taken off of Plavix
Physical exam: Sitting bed comfortably. Normal finger-nose. No reproducible nystagmus noted
Medical Decision Making: Patient has had multiple specialties to evaluate her symptoms. She has not come up with a significant answer yet. She does have follow-up with genetics and rheumatology soon. Discussed keeping these appointments and
returning for worsening symptoms
Discharge Plan
Departure
Patient Disposition: Home (Routine Discharge)
Date of Disposition: 11/14/23
Time of Disposition: 21:23
Patient with high blood pressure during this ER visit?: No
Discharge Problem:
Fatigue
Instructions: Generalized Weakness (DC)
Prescriptions:
No Action
levothyroxine [Synthroid] 50 mcg Tablet
See Rx Instructions .ROUTE .COMPLEX Qty: 0
Rx Instructions:
50 mcg orally
Thursday, Thursday, Thursday, Thursday,
multivitamin Tablet
1 tab PO DAILY
cetirizine [Zyrtec] 10 mg Tablet
10 mg PO DAILY
sumatriptan succinate [Imitrex] 25 mg Tablet
0 mg PO .COMPLEX
Rx Instructions:
take 1 tab at onset of headache; if no relief may repeat 1 tab after at least 2 hrs; max = 4 tabs/24 hr
levothyroxine [Synthroid] 75 mcg Tablet
75 mcg PO TUFR
Patient Comments:
new dose, slowly increased to 75mcg daily. and stop 50mcg when dizzness stops
cholecalciferol (vitamin D3) [Vitamin D3] 25 mcg (1,000 unit) Tablet
25 mcg PO DAILY
cyclobenzaprine 10 mg Tablet
5 mg PO Q8HPRN PRN (Reason: muscle spasms) Qty: 1 0RF
clopidogrel 75 mg Tablet
75 mg PO DAILY Qty: 1 0RF
meclizine 25 mg Tablet
25 mg PO Q8HPRN PRN (Reason: Dizziness) Qty: 1 0RF
diazepam 2 mg Tablet
2 mg PO Q6HPRN PRN (Reason: dizziness/anxiety) Qty: 1 0RF
lidocaine 4 % adhesive patch,medicated
1 patch topical DAILY PRN (Reason: muscle spasm /pain ) Qty: 1 0RF
Rx Instructions:
to her neck
amitriptyline 10 mg tablet
10 mg PO HS Qty: 30 0RF
Referrals:
Delphine Harry CRNP [Family Provider] -
Activity Restrictions/Additional Instructions:
Stay hydrated at home. Please continue to follow-up with your treating physicians. Return if worse otherwise
Interventions
Interventions:
*Risk Screen - Suicide Last Done: 11/14/23 18:02
*General Assessment Last Done: 11/14/23 18:02
*Neglect/Abuse Screening Last Done: 11/14/23 18:02
ED- Fall Risk Assessment Last Done: 11/14/23 18:00
ED- Cardiac Assessment Last Done: 11/14/23 18:00
ED- Neurological Assessment Last Done: 11/14/23 18:00
ED- Pulmonary Assessment Last Done: 11/14/23 18:00
Discharge Date and Time
Print Language: BURMESE
[2023-11-14] MEDS: NSS 1000 IV (18:24)
[2023-11-14 18:49] VITALS: BP 119/86
[2023-11-14 19:00] VITALS: BP 120/87
[2023-11-14 20:00] VITALS: BP 118/84
[2023-11-14 21:00] VITALS: BP 134/92
== END 2023-11-14 21:35 | disposition home or self-care (01) ==
LOC: EMR 17:01
PROVIDERS: EMERGENCY PHYSICIAN Student in an Organized Health Care Education/Training Program; FAMILY PHYSICIAN Nurse Practitioner Family
DX: R53.83 Other fatigue (principal); R42 Dizziness and giddiness; M54.2 Cervicalgia; R51.9 Headache, unspecified; R20.0 Anesthesia of skin; R63.0 Anorexia; I77.71 Dissection of carotid artery; E03.9 Hypothyroidism, unspecified
CPT/HCPCS: 99285; 70496; 70498; 80053; 84703; 85025; 93005; Q9967

== ENCOUNTER → 2023-11-23 07:05 | Outpatient (REF) | payer OTHER, SELFPAY | LOC: RAD 07:05 | PROVIDERS: ATTENDING PHYSICIAN Surgery Vascular Surgery; FAMILY PHYSICIAN Nurse Practitioner Family | DX: R20.0 Anesthesia of skin (principal) | CPT/HCPCS: 93923; 93930 ==

== ENCOUNTER 2024-01-23 12:16 | Emergency (ER) | payer OTHER, SELFPAY ==
[2024-01-23 12:17] VITALS: BP 142/100
[2024-01-23 13:21] VITALS: BP 132/89
[2024-01-23 13:31] LABS: % Basophils 0.5 % (0-2); % Eosinophils 0.5 % (0-6); % Immature Granulocytes 0.2 % (0-0.5); % Lymphocytes 17.8 % (20.5-51.1); % Monocytes 8.2 % (1.7-9.3); % Neutrophils 72.8 % (42.2-75.2); Absolute Lymphocytes 1.1 10^3/uL (1.2-3.4); Absolute Monocytes 0.5 10^3/uL (0.1-0.6); Absolute Neutrophils 4.4 10^3/uL (1.4-6.5); Hematocrit 38.4 % (37.0-47.0); Hemoglobin 13.5 g/dL (12.0-16.0); Mean Corp Hgb Conc. 35.2 g/dL (33.0-37.0); Mean Corpuscular Hgb 30.1 pg (27.0-31.0); Mean Corpuscular Volume 85.7 fL (81.0-99.0); Mean Platelet Volume 12.3 fL (7.4-10.4); Nucleated Red Blood Cells % 0 %; Platelet Count 179 10^3/uL (130-400); Red Blood Cell Count 4.48 10^6/uL (4.20-5.40); Red Cell Dist. Width 14.5 % (11.5-14.5)
[2024-01-23 14:00] VITALS: BP 108/78
[2024-01-23 14:00] LABS: Blood Urea Nitrogen 10 mg/dl (7-17); Calcium 10.1 mg/dl (8.4-10.2); Carbon Dioxide 27 mmol/L (22-30); Chloride 102 mmol/L (98-107); Glucose 80 mg/dl (70-99); Sodium 140 mmol/L (135-145); eGFR > 60.00
[2024-01-23 14:22] LABS: TSH Reflex To Free T4 0.78 uIU/ml (0.47-4.68)
[2024-01-23 14:57] LABS: Folate > 20.0 ng/ml (2.76-20); Vitamin B12 806 pg/ml (239-931)
[2024-01-23 15:00] VITALS: BP 128/99
--- NOTE | 2024-01-23 15:01 | ED.GENMED ---
History of Present Illness
General
Chief Complaint: Dizziness
Time Seen by Provider: 01/23/24 12:32
History of Present Illness
History of Present Illness:
38-year-old female with history of right carotid dissection earlier this year presents to the emergency department for evaluation of numerous symptoms that been ongoing for the past several months. She reports intermittent dizziness that feels
comparable to her past dissection. Reports a lightheaded sensation with ambulation, denies vertigo. She also reports occasional paresthesias in the extremities however had an outpatient EMG study for this showing no neuropathy. She also reports
excessive fatigue but this has been ongoing since her initial diagnosis of the dissection.
Past History
Past History
ED Past Medical History: Hypothyroidism
ED Past Surgical History: Orthopedic
Social History
Tobacco: Non-smoker
Alcohol: None
Drug: None
Personal:
Family History
Family History: Other (reviewed and non-contributory)
Review of Systems
Review of Systems
Allergies reviewed?: Yes
All Other Systems: ROS reviewed and negative except as documented in HPI and ROS
Phy Exam
Physical Exam
Physical Exam:
GEN: Well appearing, NAD, WDWN
HEENT: Oral mucosa moist, no scleral icterus, no nasal congestion
Cardiac: Regular rate
Lung: No respiratory distress, no tachypnea
MSK: No gross deformity or injuries
Skin: Good color, no pallor or jaundice, no rashes
Neuro: AO x3; CN II-XII grossly intact. BUE strength 5/5 in all vick, sensation intact and symmetric. BLE strength 5/5 in all vick, sensation intact and symmetric. Gait steady, tandem gait steady
Psych: Calm, cooperative
Course
Orders/Labs/Results
Orders:
Orders
01/23/24 12:17
EKG [Electrocardiogram (*1)] Urgent
Reason for Study: Palpitations
01/23/24 12:18
EKG- Treatment ONCE
01/23/24 13:13
B12 [Vitamin B12] Urgent
Basic Metabolic Panel Urgent
Complete Blood Count/With Diff Urgent
Folate Urgent
TSH Reflex To Free T4 Urgent
Abnormal Lab Results
01/23/24
13:13
MPV 12.3 H fL
(7.4-10.4)
Absolute Lymphs (auto) 1.1 L 10^3/uL
(1.2-3.4)
Lymphocytes % 17.8 L %
(20.5-51.1)
Folate > 20.0 H ng/ml
(2.76-20)
01/23/24 13:13
01/23/24 13:13
Vital Signs
Initial and Last Documented VS:
Initial Vital Signs
Temp Pulse Resp BP Pulse Ox
98.1 F 92 18 142/100 100
01/23/24 12:17 01/23/24 12:17 01/23/24 12:17 01/23/24 12:17 01/23/24 12:17
Last Documented Vital Signs
Temp Pulse Resp BP Pulse Ox
98.1 F 95 13 128/99 99
01/23/24 12:17 01/23/24 15:00 01/23/24 15:00 01/23/24 15:00 01/23/24 15:00
MDM/Problems Addressed
MDM/Problems Addressed:
At this time the patient's workup is unremarkable. I had a lengthy discussion with her and her regarding the potential risk and benefit repeat CT angiogram study, I do not strong suspicion of a recurrent dissection, and she did have
angiogram study performed at the end of June showing no vascular pathology. After discussion shared decision making we opted to repeat ionizing radiation patient will discuss an MRI/MRA with her primary care physician.
*Critical Care Note
Total Time (30-74mins, 75-104mins- exclusive of procedures): Not Applicable
ED Attending Note
-
Portions of this chart may have been created with voice recognition software.� Occasional wrong word or��sound alike� substitutions may have occurred due to the inherent limitations of voice recognition software.
Discharge Plan
Departure
Patient Disposition: Home (Routine Discharge)
Date of Disposition: 01/23/24
Time of Disposition: 15:02
Patient with high blood pressure during this ER visit?: No
Discharge Problem:
Dizziness
Instructions: Dizziness, Nonvertigo, (DC)
Prescriptions:
No Action
levothyroxine [Synthroid] 50 mcg Tablet
See Rx Instructions .ROUTE .COMPLEX Qty: 0
Rx Instructions:
50 mcg orally
Thursday, Thursday, Thursday, Thursday,
multivitamin Tablet
1 tab PO DAILY
cetirizine [Zyrtec] 10 mg Tablet
10 mg PO DAILY
sumatriptan succinate [Imitrex] 25 mg Tablet
0 mg PO .COMPLEX
Rx Instructions:
take 1 tab at onset of headache; if no relief may repeat 1 tab after at least 2 hrs; max = 4 tabs/24 hr
levothyroxine [Synthroid] 75 mcg Tablet
75 mcg PO FR
Patient Comments:
new dose, slowly increased to 75mcg daily. and stop 50mcg when dizzness stops
cholecalciferol (vitamin D3) [Vitamin D3] 25 mcg (1,000 unit) Tablet
25 mcg PO DAILY
cyclobenzaprine 10 mg Tablet
5 mg PO Q8HPRN PRN (Reason: muscle spasms) Qty: 1 0RF
clopidogrel 75 mg Tablet
75 mg PO DAILY Qty: 1 0RF
meclizine 25 mg Tablet
25 mg PO Q8HPRN PRN (Reason: Dizziness) Qty: 1 0RF
diazepam 2 mg Tablet
2 mg PO Q6HPRN PRN (Reason: dizziness/anxiety) Qty: 1 0RF
lidocaine 4 % adhesive patch,medicated
1 patch topical DAILY PRN (Reason: muscle spasm /pain ) Qty: 1 0RF
Rx Instructions:
to her neck
amitriptyline 10 mg tablet
10 mg PO HS Qty: 30 0RF
Referrals:
Delphine Harry CRNP [Family Provider] -
Vikram Olivares DO [Community] -
Interventions
Interventions:
*Risk Screen - Suicide Last Done: 01/23/24 12:17
*General Assessment Last Done: 01/23/24 12:17
*Neglect/Abuse Screening Last Done: 01/23/24 12:17
ED- Fall Risk Assessment Last Done: 01/23/24 15:05
*ED COVID-19 Vaccine History Last Done: 01/23/24 12:17
*Nursing Disposition Last Done: 01/23/24 15:05
ED- Neurological Assessment Last Done: 01/23/24 13:15
ED- Cardiac Assessment Last Done: 01/23/24 13:15
Discharge Date and Time
Discharge Date/Time: 01/23/24 15:05
Print Language: [id number]
== END 2024-01-23 15:05 | disposition home or self-care (01) ==
LOC: EMR 12:16
PROVIDERS: Physician Assistant; EMERGENCY PHYSICIAN Student in an Organized Health Care Education/Training Program; FAMILY PHYSICIAN Nurse Practitioner Family
DX: R42 Dizziness and giddiness (principal); E03.9 Hypothyroidism, unspecified
CPT/HCPCS: 99283; 80048; 82607; 82746; 84443; 85025; 93005

== ENCOUNTER → 2024-01-29 09:58 | Outpatient (REF) | payer OTHER, SELFPAY | LOC: HWRAD 09:58 | PROVIDERS: ATTENDING PHYSICIAN Obstetrics & Gynecology; FAMILY PHYSICIAN Nurse Practitioner Family | DX: N92.0 Excessive and frequent menstruation with regular cycle (principal) | CPT/HCPCS: 76830; 76856 ==

== ENCOUNTER 2024-02-04 12:52 | Emergency (ER) | payer OTHER, SELFPAY ==
[2024-02-04 12:57] VITALS: BP 154/104
[2024-02-04 13:19] VITALS: BP 128/88
--- NOTE | 2024-02-04 13:33 | ED.GENMED ---
History of Present Illness
General
Chief Complaint: Chest Pain
Time Seen by Provider: 02/04/24 13:14
History of Present Illness
History of Present Illness:
38-year-old female history of migraines, Armani's, carotid dissection presenting with palpitations with intermittent left-sided pleuritic chest pain for the past 2 weeks. Patient states that palpitations feels like her heart is 'pounding' but
denies skipping a beat or tachycardia. Patient states that left-sided chest pain is an ache, pleuritic, nonexertional, none now. Patient denies shortness of breath. Patient reports generalized fatigue which has been chronic since she had a
carotid dissection in July 2023 but has been worse over the past 2 weeks. Patient reports dizziness with standing up and moving around. Patient denies focal numbness, weakness, tingling, visual changes, headaches, shortness of breath, or cough.
Past History
Past History
ED Past Medical History: Hypothyroidism
ED Past Surgical History: Orthopedic
Social History
Tobacco: Non-smoker
Alcohol: None
Drug: None
Personal:
Family History
Family History: Other (reviewed and non-contributory)
Phy Exam
Physical Exam
Physical Exam:
General: Alert, no acute distress
Head: NCAT
Eyes: clear conjunctiva
Neck: supple
Cardiac: regular rate and rhythm, no murmur
Lungs: clear to auscultation bilaterally. No wheezes, rales, or rhonchi. Speaking full unlabored sentences. No respiratory distress.
Abdomen: soft, nondistended nontender. No rebound or guarding.
MSK: no lower extremity edema bilaterally. No deformity
Skin: warm, dry
Neuro: Alert and oriented x3. no focal deficits
Scores
Heart Score for Chest Pain Patients
STEMI patient?: No
History: Slightly or Non-Suspicious
ECG: Normal
Age: </= 45 years
Risk Factors: No Risk Factors
Troponin: </= Normal Limit
Heart Score for Chest Pain Patients: 0
Heart Score Risk: 2.5% MACE over next 6 weeks
Course
Orders/Labs/Results
Orders:
Orders
02/04/24 12:53
Electrocardiogram (*1) Urgent
Reason for Study: Chest Pain
EKG- Treatment ONCE
02/04/24 13:29
Test Result ONCE
02/04/24 13:41
Basic Metabolic Panel Urgent
CBC/With Diff [Complete Blood Count/With Diff] Urgent
DDimer [D-Dimer] Urgent
HCG, Serum Qualitative Screen Urgent
Protime/PTT Urgent
TSH Reflex To Free T4 Urgent
Troponin I Urgent
02/04/24 13:42
Add On- LAB Urgent
Tests Added?: qualitative HCG serum
02/04/24 14:30
CT Chest Pe Study Urgent
Comment:
Reason For Exam: elevated ddimer, r/o pe
Abnormal Lab Results
02/04/24
13:41
MPV 11.5 H fL
(7.4-10.4)
D-Dimer 0.79 H ug/mlFEU
(0.00-0.50)
02/04/24 13:41
02/04/24 13:41
Vital Signs
Initial and Last Documented VS:
Initial Vital Signs
Temp Pulse Resp BP Pulse Ox
98.0 F 97 18 154/104 99
02/04/24 12:57 02/04/24 12:57 02/04/24 12:57 02/04/24 12:57 02/04/24 12:57
Last Documented Vital Signs
Temp Pulse Resp BP Pulse Ox
98.0 F 75 16 120/83 98
02/04/24 12:57 02/04/24 16:06 02/04/24 16:06 02/04/24 16:06 02/04/24 16:06
MDM/Problems Addressed
Differential Diagnosis Includes:
PE, anemia, SHARMIN, electrolyte abnormality, pneumothorax, hyperthyroidism,
MDM/Problems Addressed:
Labs reviewed, hemoglobin 14.1. EKG shows NSR at 77bpm with SC 116 QTc 384 no acute ischemic changes. Ddimer elevated, ordered CTA chest r/o PE. Creatinine, electrolytes, troponin, TSH within normal limits. CTA chest shows 1. No evidence of
pulmonary embolism. 2. No significant abnormality identified in the chest, as described above. As read by radiology. Discussed results with patient at bedside. insole bottom filler during ED stay shows normal sinus rhythm with no PACs/PVCs. Pt states she
has an appointment with her vascular surgeon and dip unit operator next week. Hemodynamically stable, neurologically intact, stable for discharge home with outpatient follow up.
*Critical Care Note
Total Time (30-74mins, 75-104mins- exclusive of procedures): Not Applicable
ED Attending Note
-
Portions of this chart may have been created with voice recognition software.� Occasional wrong word or��sound alike� substitutions may have occurred due to the inherent limitations of voice recognition software.
Discharge Plan
Departure
Patient Disposition: Home (Routine Discharge)
Date of Disposition: 02/04/24
Time of Disposition: 16:03
Patient with high blood pressure during this ER visit?: Yes
Discharge Problem:
Palpitations
Instructions: Palpitations, BLOOD PRESSURE
Prescriptions:
No Action
levothyroxine [Synthroid] 50 mcg Tablet
See Rx Instructions .ROUTE .COMPLEX Qty: 0
Rx Instructions:
50 mcg orally
Thursday, Thursday, Thursday, Thursday,
levothyroxine [Synthroid] 75 mcg Tablet
75 mcg PO TU
Patient Comments:
new dose, slowly increased to 75mcg daily. and stop 50mcg when dizzness stops
cholecalciferol (vitamin D3) [Vitamin D3] 25 mcg (1,000 unit) Tablet
25 mcg PO DAILY
riboflavin (vitamin B2) [Vitamin B-2] 100 mg Tablet
100 mg PO DAILY
magnesium 100 mg Tablet
100 mg PO DAILY
Referrals:
Delphine Harry CRNP [Family Provider] -
Activity Restrictions/Additional Instructions:
Follow up with vascular surgery and cardiology as scheduled next week
Return to the emergency department for focal numbness/weakness/tingling, visual changes, shortness of breath or new/worsening symptoms
Interventions
Interventions:
*Risk Screen - Suicide Last Done: 02/04/24 13:30
*General Assessment Last Done: 02/04/24 16:12
*Neglect/Abuse Screening Last Done: 02/04/24 13:30
ED- Fall Risk Assessment Last Done: 02/04/24 13:31
*ED COVID-19 Vaccine History Last Done: 02/04/24 13:30
*Nursing Disposition Last Done: 02/04/24 16:12
ED- Cardiac Assessment Last Done: 02/04/24 13:49
Discharge Date and Time
Discharge Date/Time: 02/04/24 16:18
Print Language: THAI
[2024-02-04 13:55] LABS: % Basophils 0.4 % (0-2); % Eosinophils 0.9 % (0-6); % Immature Granulocytes 0.2 % (0-0.5); % Monocytes 4.8 % (1.7-9.3); % Neutrophils 65.7 % (42.2-75.2); Absolute Eosinophils 0.1 10^3/uL (0-0.7); Absolute Lymphocytes 1.5 10^3/uL (1.2-3.4); Absolute Monocytes 0.3 10^3/uL (0.1-0.6); Absolute Neutrophils 3.5 10^3/uL (1.4-6.5); Hematocrit 40.7 % (37.0-47.0); Hemoglobin 14.1 g/dL (12.0-16.0); Mean Corp Hgb Conc. 34.6 g/dL (33.0-37.0); Mean Corpuscular Hgb 30.6 pg (27.0-31.0); Mean Corpuscular Volume 88.3 fL (81.0-99.0); Mean Platelet Volume 11.5 fL (7.4-10.4); Nucleated Red Blood Cells % 0 %; Platelet Count 225 10^3/uL (130-400); Red Blood Cell Count 4.61 10^6/uL (4.20-5.40); Red Cell Dist. Width 13.8 % (11.5-14.5); White Blood Cell Count 5.4 10^3/uL (4.8-10.8)
[2024-02-04 14:00] VITALS: BP 128/79
[2024-02-04 14:16] LABS: Troponin I < 0.012 ng/ml
[2024-02-04 14:17] LABS: INR 1.05; PT 14.2 Sec (11.4-14.6)
[2024-02-04 14:18] LABS: APTT 31.4 Sec (23.4-35.0)
[2024-02-04 14:20] LABS: D-Dimer 0.79 ug/mlFEU (0.00-0.50)
[2024-02-04 14:35] LABS: Blood Urea Nitrogen 10 mg/dl (7-17); Calcium 9.4 mg/dl (8.4-10.2); Carbon Dioxide 24 mmol/L (22-30); Chloride 104 mmol/L (98-107); Estimated Creatinine Clearance 109 ml/min; Glucose 88 mg/dl (70-99); HCG, Serum Qualitative Screen Negative; Sodium 142 mmol/L (135-145); eGFR > 60.00
[2024-02-04 14:41] LABS: TSH Reflex To Free T4 0.92 uIU/ml (0.47-4.68)
[2024-02-04 15:00] VITALS: BP 131/93
[2024-02-04 16:06] VITALS: BP 120/83
== END 2024-02-04 16:18 | disposition home or self-care (01) ==
LOC: EMR 12:52
PROVIDERS: EMERGENCY PHYSICIAN Emergency Medicine; FAMILY PHYSICIAN Nurse Practitioner Family
DX: R00.2 Palpitations (principal); R07.81 Pleurodynia; R79.1 Abnormal coagulation profile; E06.3 Autoimmune thyroiditis
CPT/HCPCS: 99284; 71275; 80048; 84443; 84484; 84703; 85025; 85379; 85610; 85730; 93005; Q9967

== ENCOUNTER 2024-02-05 20:03 | Emergency (ER) | payer OTHER, SELFPAY ==
[2024-02-05 20:07] VITALS: BP 146/91
--- NOTE | 2024-02-05 21:39 | ED.GENMED ---
History of Present Illness
General
Chief Complaint: Chest Pain
Source: patient
Exam Limitations: none
Time Seen by Provider: 02/05/24 21:27
History of Present Illness
History of Present Illness:
This is a 38 year old female that comes in with c/o chest pain and dizziness. States that she was here yesterday and told to come back if she felt worse. States that she has been in bed most of the day feels lightheaded even when she talks. State
that if she moves around she is lightheaded and she can't even lift her arm as this makes her lightheaded. States that it feels like her heart is unable to work hard enough to move the flood around. States that she has had fatigue since her
Dissection in July and they can't figure this out. State that she has to take a nap at least 4 hours daily. States that she has left upper chest pain, occasionally SOB, headache and dizziness. States that she does have an appointment with the
patrol officer on Thursday. Denies any fever, chills, abd pain, nausea, vomiting, diarrhea, urinary burning.
Past History
Past History
ED Past Medical History: Hypothyroidism and Other (Migraines, Lightheadedness, chest pain, Right Carotid dissection. Iron def anemia)
ED Past Surgical History: Orthopedic (Bilateral knee meniscus repair, Bilateral hip labrum, ) and Other (Hernia, )
Social History
Tobacco: Non-smoker
Alcohol: None
Drug: None
Personal:
Living: with family
Family History
Family History: Other (reviewed and non-contributory)
Review of Systems
Review of Systems
All Other Systems: ROS reviewed and negative except as documented in HPI and ROS
Constitutional: Reports fatigue; Denies fever or chills
EENT: Reports no symptoms
Respiratory: Reports trouble breathing (occasional); Denies cough
Cardiac: Reports chest pain
ABD/GI: Reports no symptoms; Denies abdominal pain, nausea, vomiting or diarrhea
: Reports no symptoms; Denies dysuria, frequency or urgency
Musculoskeletal: Reports no symptoms
Skin: Reports no symptoms
Neurological: Reports dizzy and headache
Psychiatric: Reports no symptoms
Phy Exam
General Physical Exam
General Presentation: well appearing and no apparent distress
General age: appears stated age
General Skin: warm and dry
General Habitus: normal
General Mental: alert
General Hydration: appears well hydrated
ENT Exam
ENT Exam: TM's normal, pharynx normal and neck supple
Eye Exam
Eye Exam: EOMI
Cardiovascular Exam
Cardiovascular Exam: regular rate/rhythm, no edema, no murmur and normal peripheral pulses
Pulmonary Exam
Pulmonary Exam: lungs clear, no respiratory distress, no rales, chest non tender, no crackles, no rhonchi, no wheezing and no cough
Gastrointestinal Exam
Gastrointestinal Exam: normal bowel sounds, non tender, soft, no organomegaly, no pulsatile mass and non distended
Musculoskeletal Exam
Musculoskeletal Exam: full ROM and no edema
Skin Exam
Skin Exam: normal color, warm/dry, no rash and no petechia
Psychiatric Exam
Psychiatric Exam: normal mood/affect
Scores
Heart Score for Chest Pain Patients
STEMI patient?: No
History: Slightly or Non-Suspicious
ECG: Normal
Age: </= 45 years
Risk Factors: No Risk Factors
Troponin: </= Normal Limit
Heart Score for Chest Pain Patients: 0
Heart Score Risk: 2.5% MACE over next 6 weeks
Course
Orders/Labs/Results
Orders:
Orders
02/05/24 20:04
Electrocardiogram (*1) Urgent
Reason for Study: Chest Pain
02/05/24 20:05
EKG- Treatment ONCE
02/05/24 21:38
Orthostatic VS- Treatment ONCE
0.9% Sodium Chloride 1000 ml [Nss] 1,000 ml IV BOLUS
02/05/24 21:39
Test Result ONCE
02/05/24 22:34
Complete Blood Count/With Diff Urgent
TSH Reflex To Free T4 Urgent
02/05/24 23:07
Comprehensive Metabolic Panel Urgent
HCG, Serum Qualitative Screen Urgent
Troponin I Urgent
02/05/24 23:51
EKG- Treatment ONCE
02/06/24 00:00
CT Head & Neck Angio W/wo IV Urgent
Comment: history of carotid disection
Reason For Exam: Headache, dizziness,
02/06/24 02:00
Electrocardiogram (*1) Urgent
Reason for Study: Chest Pain
Other Reason for Exam: Repeat with Troponin
02/06/24 02:05
Troponin I Urgent
Abnormal Lab Results
02/05/24
22:34
MPV 11.7 H fL
(7.4-10.4)
02/05/24 22:34
02/05/24 23:07
Labs unremarkable. Troponin <0.012, TSH normal at 2.95, HCG negative.
Second Troponin <0.012
Vital Signs
Initial and Last Documented VS:
Initial Vital Signs
Temp Pulse Resp BP Pulse Ox
98.2 F 76 16 146/91 100
02/05/24 20:07 02/05/24 20:07 02/05/24 20:07 02/05/24 20:07 02/05/24 20:07
Last Documented Vital Signs
Temp Pulse Resp BP Pulse Ox
98.2 F 77 14 119/86 97
02/05/24 20:07 02/06/24 02:03 02/06/24 02:03 02/06/24 02:03 02/06/24 02:03
MDM/Problems Addressed
Differential Diagnosis Includes:
Fatigue, Coronary syndrome. Dehydration.
MDM/Problems Addressed:
This is a 38 year old female that comes in with c/o left side chest pain and increased dizziness with headache. States that she was here yesterday and told to come back if this got worse. States that she is dizzy with any movement and has been in
bed most of the day. States that even to lift her arm makes her dizzy.
Will get CTA of head and neck. Give IV fluids, Check labs.
Repeat ECG: rate 73, NSR, Normal axis. Normal QRS, negative for ischemia.
Back into see patient. Explained that her blood work is all normal along with the CTA of the head and neck. patient TSH is normal. Encouraged patient to try and get OOB more as the more she is in bed the more she will be fatigued and this can also
cause dizziness. Patient has an appointment with the [facility] on Thursday. patient to return with any concerns.
Chronic conditions affecting care:
Chronic fatigue,
Acute Exacerbation and/or Progression of Chronic Illness:
fatigue
*Radiology
Radiology exam reviewed: radiology read reviewed (CTA head and neck-Noncontrast head: No acute intracranial abnormality. No acute territorial infarct, hemorrhage, mass effect, or midline shift. CTA neck: The bilateral vertebral arteries are widely
patent. Bilateral common carotid and internal carotid arteries are widely patent without ) and all reviewed NAD by ED Provider (CT cont- significant stenosis. CTA head: The [place] is patent without aneurysm, stenosis or occlusion. )
*Pulse Oximetry
Patient hypoxic: no
*EKG
Interpreted by ED Provider?: Yes
Heart Rate: 69
Rate: normal
Rhythm: sinus
Wheeler: normal axis
Interval: normal interval
QRS Pattern: normal QRS
Ischemia: no ischemia
*Metal Hanging Supervisor Interpretation
Rate: normal
Heart Rate: 74
Rhythm: sinus
*Critical Care Note
Total Time (30-74mins, 75-104mins- exclusive of procedures): Not Applicable
ED Attending Note
-
Portions of this chart may have been created with voice recognition software.� Occasional wrong word or��sound alike� substitutions may have occurred due to the inherent limitations of voice recognition software.
Discharge Plan
Departure
Patient Disposition: Home (Routine Discharge)
Date of Disposition: 02/06/24
Time of Disposition: 02:58
Patient with high blood pressure during this ER visit?: No
Condition: Good
Covid-19: Not Applicable
Discharge Problem:
Dizziness, Chest pain
Instructions: Dizziness, Adult ED, Chest Pain
Prescriptions:
No Action
levothyroxine [Synthroid] 75 mcg Tablet
75 mcg PO .EVERYTHIRDDAY
cholecalciferol (vitamin D3) [Vitamin D3] 25 mcg (1,000 unit) Tablet
25 mcg PO DAILY
riboflavin (vitamin B2) [Vitamin B-2] 100 mg Tablet
100 mg PO DAILY
magnesium 100 mg Tablet
100 mg PO DAILY
levothyroxine 50 mcg Tablet
See Rx Instructions .ROUTE .COMPLEX
Rx Instructions:
50mcg on days pt does not take 75mcg that she takes every third day
Referrals:
Delphine Harry CRNP [Family Provider] - Follow up in 2-3 days
Activity Restrictions/Additional Instructions:
As discussed, your blood work is all normal. Your CT of the head and neck is also normal. Thyroid function is normal. Please increase your water intake and try getting out of bed more. Laying in bed will increase your fatigue and can cause more
dizziness. Please increase your water intake to 8-8oz glasses daily. Follow up wtih the [facility] as scheduled. IF YOU HAVE INCREASED OR CHANGING PAIN, OR YOU HAVE ANY OTHER CONCERNS PLEASE RETURN TO THE EMERGENCY ROOM.
Interventions
Interventions:
*Risk Screen - Suicide Last Done: 02/05/24 20:07
*General Assessment Last Done: 02/05/24 20:07
*Neglect/Abuse Screening Last Done: 02/05/24 20:07
ED- Fall Risk Assessment Last Done: 02/05/24 22:40
*ED COVID-19 Vaccine History Last Done: 02/05/24 20:07
ED- Cardiac Assessment Last Done: 02/05/24 22:40
Discharge Date and Time
Print Language: UKRAINIAN
[2024-02-05 22:19] VITALS: BMI 19.3
[2024-02-05 22:27] VITALS: BP 112/77; BP 124/84; BP 128/98; PULSE 65; PULSE 69; PULSE 76
[2024-02-05 22:40] LABS: % Basophils 0.4 % (0-2); % Eosinophils 1.4 % (0-6); % Immature Granulocytes 0.3 % (0-0.5); % Lymphocytes 39.3 % (20.5-51.1); % Monocytes 6.9 % (1.7-9.3); % Neutrophils 51.7 % (42.2-75.2); Absolute Eosinophils 0.1 10^3/uL (0-0.7); Absolute Lymphocytes 2.7 10^3/uL (1.2-3.4); Absolute Monocytes 0.5 10^3/uL (0.1-0.6); Absolute Neutrophils 3.6 10^3/uL (1.4-6.5); Hematocrit 40.6 % (37.0-47.0); Mean Corp Hgb Conc. 34.5 g/dL (33.0-37.0); Mean Corpuscular Hgb 30.4 pg (27.0-31.0); Mean Corpuscular Volume 88.1 fL (81.0-99.0); Mean Platelet Volume 11.7 fL (7.4-10.4); Nucleated Red Blood Cells % 0 %; Platelet Count 239 10^3/uL (130-400); Red Blood Cell Count 4.61 10^6/uL (4.20-5.40); Red Cell Dist. Width 13.8 % (11.5-14.5); White Blood Cell Count 6.9 10^3/uL (4.8-10.8)
--- NOTE | 2024-02-05 22:42 | EDRN ---
Pt was here yesterday and says she had dizziness/cp/sob. Pt says her d-dimer was elevated and her CT of the chest did not show anything so she was sent home and told to return if she felt worse. Pt says the dizziness is worse today than yesterday.
Pt denies chest pain but says there is 'something there' when pointing to L upper chest. Pt has sob and says she has it at rest and more with exertion. During ortho VS pt felt dizzy going from laying to sitting, not to standing. Pt denies recent
airplane travel/long car rides. No leg pain/swelling. Pt denies fever/cough, abd pain, n/v. Pt has felt generally fatigued, napping for longer periods of time daily.
[2024-02-05 23:00] VITALS: BP 115/88
[2024-02-05 23:26] LABS: TSH Reflex To Free T4 2.95 uIU/ml (0.47-4.68)
[2024-02-05 23:26] LABS: HCG, Serum Qualitative Screen Negative
[2024-02-05 23:31] LABS: ALT (SGPT) 18 U/L (0-35); AST (SGOT) 19 U/L (14-36); Albumin 4.4 g/dl (3.5-5.0); Alkaline Phosphatase 51 U/L (38-126); Blood Urea Nitrogen 12 mg/dl (7-17); Calcium 9.2 mg/dl (8.4-10.2); Carbon Dioxide 24 mmol/L (22-30); Chloride 106 mmol/L (98-107); Estimated Creatinine Clearance 106 ml/min; Glucose 82 mg/dl (70-99); Potassium 4.2 mmol/L (3.5-5.1); Sodium 143 mmol/L (135-145); Total Bilirubin 0.6 mg/dl (0.2-1.3); eGFR > 60.00
[2024-02-05 23:36] LABS: Troponin I < 0.012 ng/ml
[2024-02-05] MEDS: NSS 1000 IV (23:46)
[2024-02-06] VITALS: BP 124/89
[2024-02-06 02:03] VITALS: BP 119/86
[2024-02-06 02:45] LABS: Troponin I < 0.012 ng/ml
[2024-02-06 03:21] VITALS: BP 112/79
== END 2024-02-06 03:33 | disposition home or self-care (01) ==
LOC: EMR 20:03
PROVIDERS: Clinical Nurse Specialist Family Health; EMERGENCY PHYSICIAN Emergency Medicine; FAMILY PHYSICIAN Nurse Practitioner Family
DX: R42 Dizziness and giddiness (principal); R07.89 Other chest pain; E03.9 Hypothyroidism, unspecified; D50.9 Iron deficiency anemia, unspecified
CPT/HCPCS: 99284; 70496; 70498; 80053; 84443; 84484; 84703; 85025; 93005; Q9967

== ENCOUNTER → 2024-02-26 11:19 | Outpatient (REF) | payer OTHER, SELFPAY | LOC: HWRCS 11:19 | PROVIDERS: ATTENDING PHYSICIAN Nurse Practitioner; FAMILY PHYSICIAN Nurse Practitioner Family | DX: R00.2 Palpitations (principal); R42 Dizziness and giddiness | CPT/HCPCS: 93306 ==

== ENCOUNTER → 2024-05-13 10:30 | Outpatient (REF) | payer OTHER, SELFPAY | LOC: HWRAD 10:30 | PROVIDERS: ATTENDING PHYSICIAN Nurse Practitioner Family | DX: M89.8X9 Other specified disorders of bone, unspecified site (principal) | CPT/HCPCS: 71111 ==

== ENCOUNTER → 2024-05-23 19:39 | Outpatient (REF) | payer OTHER, SELFPAY | LOC: MRI 3T 19:39 | PROVIDERS: ATTENDING PHYSICIAN Nurse Practitioner Family | DX: M89.8X9 Other specified disorders of bone, unspecified site (principal) | CPT/HCPCS: 71552; A9575 ==

== ENCOUNTER 2024-08-20 20:14 | Emergency (ER) | payer OTHER, SELFPAY ==
[2024-08-20 20:17] VITALS: BP 124/87
[2024-08-20 20:20] VITALS: BMI 20.2
[2024-08-20 20:38] LABS: % Basophils 0.3 % (0-2); % Eosinophils 2.6 % (0-6); % Immature Granulocytes 0.1 % (0-0.5); % Lymphocytes 27.2 % (20.5-51.1); % Monocytes 6.2 % (1.7-9.3); % Neutrophils 63.6 % (42.2-75.2); Absolute Eosinophils 0.2 10^3/uL (0-0.7); Absolute Lymphocytes 1.9 10^3/uL (1.2-3.4); Absolute Monocytes 0.4 10^3/uL (0.1-0.6); Absolute Neutrophils 4.3 10^3/uL (1.4-6.5); Hematocrit 35.2 % (37.0-47.0); Hemoglobin 12.8 g/dL (12.0-16.0); Mean Corp Hgb Conc. 36.4 g/dL (33.0-37.0); Mean Corpuscular Hgb 31.6 pg (27.0-31.0); Mean Corpuscular Volume 86.9 fL (81.0-99.0); Mean Platelet Volume 12.2 fL (7.4-10.4); Nucleated Red Blood Cells % 0 %; Platelet Count 157 10^3/uL (130-400); Red Blood Cell Count 4.05 10^6/uL (4.20-5.40); Red Cell Dist. Width 11.9 % (11.5-14.5); White Blood Cell Count 6.8 10^3/uL (4.8-10.8)
[2024-08-20 21:00] VITALS: BP 117/86
[2024-08-20 21:18] LABS: ALT (SGPT) 13 U/L (0-35); AST (SGOT) 20 U/L (14-36); Albumin 4.6 g/dl (3.5-5.0); Alkaline Phosphatase 57 U/L (38-126); Blood Urea Nitrogen 14 mg/dl (7-17); Calcium 9.6 mg/dl (8.4-10.2); Carbon Dioxide 23 mmol/L (22-30); Chloride 108 mmol/L (98-107); Estimated Creatinine Clearance 95 ml/min; Glucose 99 mg/dl (70-99); Potassium 4.2 mmol/L (3.5-5.1); Sodium 140 mmol/L (135-145); Total Bilirubin 0.5 mg/dl (0.2-1.3); Total Protein 7.2 g/dl (6.3-8.2); eGFR > 60.00
--- NOTE | 2024-08-20 21:53 | ED.GENMED ---
History of Present Illness
<JHOAN Bowman - Last Filed: 08/20/24 23:28>
General
Chief Complaint: Dizziness
Source: patient
Exam Limitations: none
Time Seen by Provider: 08/20/24 21:08
Nursing documentation reviewed up to this point in time: agreed with
History of Present Illness
History of Present Illness:
Patient is a 38-year-old female with past medical history of right internal carotid dissection, Lyme, Armani's thyroiditis presents to the ER for evaluation. Patient complains of spasming and pain to the left upper back scapular area. She
noticed this after lifting a 30 pound sewing machine. She has pain with any movement of her neck looking up or down. She denies any actual neck pain. She does have history of carotid dissection and intermittent dizziness since. The dizziness is
not new. She does have mild headache now. She is concerned because she did not necessarily have symptoms when she had dissection previously.
At the time she was seen by Dr. Honeycutt. She is no longer on Plavix and aspirin she was cleared. no cp no shortness of breath.
Past History
<JHOAN Bowman - Last Filed: 08/20/24 23:28>
Past History
ED Past Medical History: Hypothyroidism and Other (Migraines, Lightheadedness, chest pain, Right Carotid dissection. Iron def anemia)
ED Past Surgical History: Orthopedic (Bilateral knee meniscus repair, Bilateral hip labrum, ) and Other (Hernia, )
Social History
Tobacco: Non-smoker
Alcohol: None
Drug: None
Personal:
Living: with family
Family History
Family History: Other (reviewed and non-contributory)
Review of Systems
<JHOAN Bowman - Last Filed: 08/20/24 23:28>
Review of Systems
Allergies reviewed?: Yes
All Other Systems: ROS reviewed and negative except as documented in HPI and ROS
Constitutional: Reports no symptoms; Denies fever, fatigue or chills
Respiratory: Reports no symptoms
Cardiac: Reports no symptoms
ABD/GI: Reports no symptoms
Musculoskeletal: Reports back pain (left upper back pain )
Skin: Reports no symptoms
Neurological: Reports no symptoms; Denies headache
Psychiatric: Reports no symptoms
Phy Exam
<JHOAN Bowman - Last Filed: 08/20/24 23:28>
General Physical Exam
General Presentation: no apparent distress
General age: appears stated age
General Skin: warm and dry
General Habitus: normal
General Mental: alert
General Hydration: appears well hydrated
Neurological Exam
Neurological Exam: alert and oriented x3
Musculoskeletal Exam
Musculoskeletal Exam: other (limited movement of neck due to pain felt in upper back + tenderness to left scapula region )
Skin Exam
Skin Exam: normal color and warm/dry
Psychiatric Exam
Psychiatric Exam: normal mood/affect
Course
<JHOAN Bowman - Last Filed: 08/20/24 23:28>
Orders/Labs/Results
Orders:
Orders
08/20/24 20:16
Electrocardiogram (*1) Urgent
Reason for Study: Vertigo / Dizzy
EKG- Treatment ONCE
08/20/24 20:31
Complete Blood Count/With Diff Urgent
Comprehensive Metabolic Panel Urgent
08/20/24 21:53
0.9% Sodium Chloride 1000 ml [Nss] 1,000 ml IV BOLUS
Ketorolac [Toradol] 15 mg IV NOW STA
diazePAM [Valium Injection] 2 mg IV NOW STA
08/20/24 22:25
Lidocaine [Lidocaine 4% Patch] 1 patch TOPICAL NOW STA
Apply Lidocaine patch(s) to:: left back
08/20/24 23:21
Acetaminophen [Tylenol] 1,000 mg PO NOW STA
Abnormal Lab Results
08/20/24
20:31
RBC 4.05 L 10^6/uL
(4.20-5.40)
Hct 35.2 L %
(37.0-47.0)
MCH 31.6 H pg
(27.0-31.0)
MPV 12.2 H fL
(7.4-10.4)
Chloride 108 H mmol/L
(98-107)
08/20/24 20:31
08/20/24 20:31
Vital Signs
Initial and Last Documented VS:
Initial Vital Signs
Temp Pulse Resp BP Pulse Ox
98.1 F 76 19 124/87 100
08/20/24 20:17 08/20/24 20:17 08/20/24 20:17 08/20/24 20:17 08/20/24 20:17
Last Documented Vital Signs
Temp Pulse Resp BP Pulse Ox
98.1 F 73 19 123/84 99
08/20/24 20:17 08/20/24 22:30 08/20/24 22:30 08/20/24 22:00 08/20/24 22:30
[employer]visor [employer] consulted with Physician
[employer] consulted with physician?: Yes (Rodrigo )
<Lobo Wallace, DO - Last Filed: 08/20/24 22:21>
Orders/Labs/Results
Orders:
Orders
08/20/24 20:16
Electrocardiogram (*1) Urgent
Reason for Study: Vertigo / Dizzy
EKG- Treatment ONCE
08/20/24 20:31
Complete Blood Count/With Diff Urgent
Comprehensive Metabolic Panel Urgent
08/20/24 21:53
0.9% Sodium Chloride 1000 ml [Nss] 1,000 ml IV BOLUS
Ketorolac [Toradol] 15 mg IV NOW STA
diazePAM [Valium Injection] 2 mg IV NOW STA
08/20/24 22:25
Lidocaine [Lidocaine 4% Patch] 1 patch TOPICAL NOW STA
Apply Lidocaine patch(s) to:: left back
08/20/24 23:21
Acetaminophen [Tylenol] 1,000 mg PO NOW STA
Abnormal Lab Results
08/20/24
20:31
RBC 4.05 L 10^6/uL
(4.20-5.40)
Hct 35.2 L %
(37.0-47.0)
MCH 31.6 H pg
(27.0-31.0)
MPV 12.2 H fL
(7.4-10.4)
Chloride 108 H mmol/L
(98-107)
08/20/24 20:31
08/20/24 20:31
Vital Signs
Initial and Last Documented VS:
Initial Vital Signs
Temp Pulse Resp BP Pulse Ox
98.1 F 76 19 124/87 100
08/20/24 20:17 08/20/24 20:17 08/20/24 20:17 08/20/24 20:17 08/20/24 20:17
Last Documented Vital Signs
Temp Pulse Resp BP Pulse Ox
98.1 F 73 19 123/84 99
08/20/24 20:17 08/20/24 22:30 08/20/24 22:30 08/20/24 22:00 08/20/24 22:30
<JHOAN Bowman - Last Filed: 08/20/24 23:28>
MDM/Problems Addressed
MDM/Problems Addressed:
As documented patient is a 30-year-old female with history of carotid dissection previously presented with pain to the left upper scapula that started about an hour after lifting a 30 pound sewing machine. She presented with pain to this area
worse with moving her neck and moving her arm and any movements. She came by EMS She denies any actual headache. She does have chronic intermittent dizziness since having her dissection this is not new. She has a normal neurological exam and
symptoms are more consistent with muscular spasm from lifting injury. Patient has had multiple CAT scans in the past .
Case discussed with ER physician who evaluated patient and as discussed we will hold off on imaging as this is likely muscular and less likely dissection.
Patient received Valium ,Toradol and a lidocaine patch and feeling much better able to sit up and move her neck better.
<JHOAN Bowman - Last Filed: 08/20/24 23:28>
*Critical Care Note
Total Time (30-74mins, 75-104mins- exclusive of procedures): Not Applicable
ED Attending Note
<JHOAN Bowman - Last Filed: 08/20/24 23:28>
-
Portions of this chart may have been created with voice recognition software.� Occasional wrong word or��sound alike� substitutions may have occurred due to the inherent limitations of voice recognition software.
<Lobo Wallace DO - Last Filed: 08/20/24 22:21>
ED Attending Note
Patient seen and examined by attending physician: Yes
I performed the substantive portion of visit, reviewed & personally made and approve the management plan that is documented in note by myself or BONG.: Yes
ED Attending Note:
I have seen and evaluated the patient with a [id number] encounter. I have spoken to the advance practicer provider and involved in the medical history, the physical exam, medical decision making.
Evaluation and management service: agree unless noted differently below.
Results interpretation: agree unless noted differently below.
Focused HPI: 38-year-old female presenting with mid back pain. Patient is concerned about muscle strain but she is more concerned about her prior history of carotid dissection
Physical exam: Sitting bed comfortably. No tenderness to bilateral carotids
Medical Decision Making: Although she is concerned about carotid dissection, patient has had many CT scans recently. I am concerned about radiation risk and can risk. Patient does acknowledge my concern. There is a shared decision making to not
obtain CT of the neck given that her pain is more posterior and does not involve area near both carotids
Discharge Plan
Departure
Patient with high blood pressure during this ER visit?: No
Condition: Fair
Covid-19: Not Applicable
Discharge Problem:
Muscle spasm
Instructions: Muscle spasms (muscle cramps), BLOOD PRESSURE
Prescriptions:
New
cyclobenzaprine 10 mg tablet
10 mg PO Q8H PRN (Reason: muscle spasm) Qty: 10 0RF
lidocaine 5 % adhesive patch,medicated
1 patch topical DAILY Qty: 15 0RF
Rx Instructions:
remove after 12 hrs
No Action
levothyroxine [Synthroid] 75 mcg Tablet
75 mcg PO .EVERYTHIRDDAY
cholecalciferol (vitamin D3) [Vitamin D3] 25 mcg (1,000 unit) Tablet
25 mcg PO DAILY
riboflavin (vitamin B2) [Vitamin B-2] 100 mg Tablet
100 mg PO DAILY
magnesium 100 mg Tablet
100 mg PO DAILY
levothyroxine 50 mcg Tablet
See Rx Instructions .ROUTE .COMPLEX
Rx Instructions:
50mcg on days pt does not take 75mcg that she takes every third day
Referrals:
Nabila España CRNP [Family Provider, Family Practice]
Activity Restrictions/Additional Instructions:
As discussed ice the affected area for the next 24 hours 20 minutes at a time several times a day followed by warm moist heat. Ibuprofen 600 mg every 8 hours with food. You may alternate with Tylenol. A prescription for muscle relaxer was sent
to pharmacy take only as directed. This medication will cause drowsiness. No driving or drinking alcohol take this medication.
You may use lidocaine patches as needed to the affected area ,keep on for 12 hours.
Follow-up closely with your family doctor in the next several days and return if any worsening of symptoms
Interventions
Interventions:
*Risk Screen - Suicide Last Done: 08/20/24 20:20
*General Assessment Last Done: 08/20/24 20:20
*Neglect/Abuse Screening Last Done: 08/20/24 20:20
*ED- Fall Risk Assessment Last Done: 08/20/24 20:20
*ED COVID-19 Vaccine History Last Done: 08/20/24 20:20
ED- Neurological Assessment Last Done: 08/20/24 20:30
ED- Cardiac Assessment Last Done: 08/20/24 20:30
Discharge Date and Time
Print Language: ICELANDIC
[2024-08-20 22:00] VITALS: BP 123/84
[2024-08-20] MEDS: NSS 1000 IV (22:08)
[2024-08-20] MEDS: TORADOL 15 MG IV (22:09)
[2024-08-20] MEDS: VALIUM INJECTION 2 MG IV (22:10)
[2024-08-20] MEDS: LIDOCAINE 4% PATCH 1 PATCH TOPICAL (22:28)
[2024-08-20 23:00] VITALS: BP 111/80
[2024-08-20] MEDS: TYLENOL 1000 MG PO (23:36)
[2024-08-21 00:09] VITALS: BP 119/84
== END 2024-08-21 00:21 | disposition home or self-care (01) ==
LOC: EMR 20:14
PROVIDERS: EMERGENCY PHYSICIAN Student in an Organized Health Care Education/Training Program; FAMILY PHYSICIAN Nurse Practitioner Family
DX: R42 Dizziness and giddiness (principal); M62.838 Other muscle spasm; M54.6 Pain in thoracic spine; R51.9 Headache, unspecified; M54.2 Cervicalgia; X50.0XXA Overexertion from strenuous movement or load, initial encounter; Y93.89 Activity, other specified; I77.71 Dissection of carotid artery; E06.3 Autoimmune thyroiditis; D50.9 Iron deficiency anemia, unspecified
CPT/HCPCS: 99284; 96374; 96375; 96361; 80053; 85025; 93005